=== PATIENT | female | born 1980 | race Caucasian/White ===

== ENCOUNTER 2024-06-13 13:47 | Outpatient (CLI) | payer SELFPAY ==
--- NOTE | ~2024-06-13 | US_ITS ---
EXAMINATION: US OB <= 14 weeks fetus DATE: 06/13/2024 14:21 INDICATION: Uncertain dating of during first trimester TECHNIQUE: Real-time pelvic ultrasound utilizing both a transvaginal and transabdominal probe was pe rformed. The interpreting radiologist was not present for the study. COMPARISON: None. FINDINGS: The uterus measures 12.3 x 2.7 x 10.8 cm. The uterine gestational sac with single living fetus with f etal heart rate of 153 beats per minute (bpm). The placenta appears to be developing posteriorly The amniotic fluid volume is subjectively normal. The following biometric data were obtained: BPD: 2.7 cm -> 14 weeks 5 days Head circumference: 9.9 cm -> 14 weeks 4 days Abdominal circumference: 8.1 cm -> 14 weeks 3 days Femur length: 1.4 cm -> 14 weeks 0 days These measurements are concordant. Head circumference to abdominal circumference ratio: 1.22 (normal range 1.08-1.37). Estimated weight: 94 g (+/-) 14 g IMPRESSION: 1. Single living fetus with heart rate of 153 bpm. 2. Gestational age by ultrasound of 14 weeks 3 day(s) +/-7 days with ultrasound estimated date of de livery (DOMENICA) of 12/09/2024. Please correlate with clinical information or earlier ultrasounds for most accurate DOMENICA. Reviewed, dictated and finalized at location A. IMPRESSION: 1. Single living fetus with heart rate of 153 bpm. 2. Gestational age by ultrasound of 14 weeks 3 day(s) +/-7 days with ultrasoun d estimated date of delivery (DOMENICA) of 12/09/2024. Please correlate with clinical information or earlier ultrasounds for most accurate DOMENICA.
== END 2024-06-13 13:48 ==
PROVIDERS: PCP Nurse Practitioner Women's Health; Visit Provider Nurse Practitioner Women's Health
DX: Z36.87 Encounter for antenatal screening for uncertain dates (principal)
CPT/HCPCS: 76801

== ENCOUNTER 2024-11-13 16:17 | Outpatient (RCR) | payer OTHER, SELFPAY ==
[2024-11-13 17:11] VITALS: BP 110/71; PULSE 98
== END 2025-02-11 23:59 | disposition home or self-care (01) ==
LOC: ANHOBOP 16:17
PROVIDERS: Visit Provider Obstetrics & Gynecology Gynecology
DX: O09.513 Supervision of elderly primigravida, third trimester (principal); Z3A.36 36 weeks gestation of pregnancy
CPT/HCPCS: 59025

== ENCOUNTER 2024-11-14 19:49 | Observation (INO) | payer OTHER, SELFPAY ==
--- OUTSIDE RECORDS SUMMARY | 2024-11-14 20:40 | XMS_ITS | Referral Summary ---
Author Organization [facility] Address [address] [place] [address] Care Team Providers Care Lead Radiologic Technologist Name Role Phone Unavailable Primary Care Provider Unavailabl e Source Comments [facility],non-owned Affiliates and Associated Physician Practices is amultiple site organization consisting of ambulatory clinics and hospital sitesin [place], [place], [place] and [place]. This disclosure is being madepursuant to the Care Everywhere program and may not contain all information available regarding this patient. Last updated 18.[facility]co Allergies Active Allergy Reactions Criticality Noted Date Comments Prochlorperazine Unknown Low 07/04/2020 Medications * Be aware that medications may not be up to date on this document. Alwaysverify current medications with the patient. 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 History of meningitis 08/01/2023 Mass of upper outer quadrant of right breast Mass of upper outer quadrant of left breast 03/18 Social History Tobacco Use Types Packs/Day Years Used Date Smoking Tobacco: Never Smokeless Tobacco: Never Alcohol Use Standard Drinks/Week Comments No 0 (1 standard drink = 0.6 oz pur e alcohol) Sex and Gender Information Value Date Recorded Sex Assigned at Not on file Gender Identity Not on file Sexual Orientation Not on file Last Filed Vital Signs Vital Sign Reading Time Taken Comments Blood Pressure 121/86 08/01/2023 8:17 AM CDT Pulse 93 08/01/2023 8:17 AM CDT Temperature 36.9 ??C (98.4 ??F) 09/29/2019 11:[address] Respiratory Rate 16 08/01/2023 8:17 AM CDT Oxygen Saturation 96% 09/30/2019 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 Concentration - - Weight 49.9 kg (110 lb) 04/07/2020 11:24 AM CDT Height 162.6 cm (5' 4 ) 08/01/2023 8:17 AM CDT Body Mass Index 18.88 04/07/2020 11:24 AM CDT Plan of Treatment Not on file Procedures Procedure Name Priority Date/Time Associated Diagnosis Comments MAMMO BILAT DIAGNOSTIC Routine 04/09/2020 10:40 AM CDT Mass of upper outer quadrant of left breast Mass of upper outer quadrant of right breast from Last 3 Months or Most Recently Relevant to Health Maintenance Results * (ABNORMAL) MAMMO BILAT DIAGNOSTIC (04/09/2020 10:40 AM CDT) Anatomical Region Laterality Modality Breast Bilateral Mammography 04/09/2020 2:35 PM CDT Narrative 04/09/2020 2:58 PM CDT DIGITAL MAMMOGRAM DIAGNOSTIC BILATERAL WITH CAD CORRELATION 3-D DIGITAL TOMOSYNTHESIS DATE: 04/09/2020 10:03 AM PREVIOUS EXAM DATE: 02/02/2019 HISTORY: High risk for breast cancer. Follow-up right breast mass at 7:00. TECHNIQUE: Bilateral breast CC and MLO views. These images were interpreted with the aid of CAD. 3-D digital Tomosynthesis was performed. TECHNOLOGIST: Jazzmine Brower RT (R)(M) TISSUE DENSITY: Heterogeneously dense which may obscure small masses. FINDINGS: Dense nodular fibroglandular parenchyma is demonstrated bilaterally. The overall appearance is similar to 02/02/2019. Ultrasound was performed bilaterally. See separate report. Ultrasound shows a 0.473 x 0.301 x 0.683 cm ovoid hypoechoic mass in the left breast which appears to be within a duct in the 10:00 position, 1 cm from the nipple. Left axillary lymph node measuring up to 1.27 cm with irregular cortical thickening is demonstrated on ultrasound. Ultrasound shows the hypoechoic mass in the 7:00 position in the right breast to be unchanged. ASSESSMENT: BI-RADS CATEGORY 4: SUSPICIOUS ABNORMALITY, BIOPSY SHOULD BE CONSIDERED RECOMMENDATIONS: Ultrasound-guided left breast biopsy of 10:00 lesion, as well as consider biopsy left axillary lymph node. The above findings should be correlated with physical examination. ??A relatively nonspecific study should not preclude additional evaluation if suspicious findings are present clinically. An [employer] certified facility. [facility] utilize [employer] as a reminder system to notify patients of their next recommended mammograms. Edited by Steff Gonzalez on 04/09/2020 2:52 PM *Reading Radiologist: Zhou Nicholas on 04/09/2020 at 2:58 PM Kandi Sparrowting DO MAMMO ORDERABLES from Last 3 Months or Most Recently Relevant to Health Maintenance Advance Directives * Full Code (Latest Code Status on File) Date Activated Date Inactivated Comments 06/24/2015 10:34 PM 06/25/2015 12:17 AM
--- OUTSIDE RECORDS SUMMARY | 2024-11-14 20:40 | XMS_ITS | Continuity of Care Document ---
Author Organization [facility] Address [address] [place] [address] Phone Care Team Providers Care Physician Office Rep Name Role Phone Unavailable Unavailable Unavailable Advance Directives Directive Yes / No Effective Date File Name No Information Encounters Encounter Description Practice Location Reason(s) For Visit Diagnoses Date Provider Providers Copied on Encounter [facility], [address], [place], [place], [id number], tel:[phone] [facility] No Information [id number] No Information Referring Provider: RAYSA DOWLING, [address], [place], [address]. tel:[phone] Family History Family Member Type Diagnosis Age At Onset No Information Payers Payer name Insurance type Covered constitution party ID Authoriza tiusha(s) [facility] [id number] Social History Type Description Quantity Date Captured Comments Sex Female Smoking Status No Information Chief Complaint And Reason For Visit No Information History Of Present Illness Encounter Date Complaint History Of Prese nt Illness No Information Instructions Date Instruction Additional Infor mation No Information Assessments Type Assessment Date No Information
--- OUTSIDE RECORDS SUMMARY | 2024-11-14 20:40 | XMS_ITS | Patient Health Summary ---
Author Organization [facility] Address [address] [place] [address] Care Team Providers Care Gas Usage Meter Clerk Name Role Phone Unavailable Primary Care Provider Unavailabl e Note from [facility],non-owned Affiliates and Associated Physician Practices is amultiple site organization consisting of ambulatory clinics and hospital sitesin [place], [place], [place] and [place]. This disclosure is being madepursuant to the Care Everywhere program and may not contain all information available regarding this patient. Last updated 18.[facility] Allergies * Prochlorperazine(Unknown) -Low Criticality Medications * Be aware that medications may not be up to date on this document. Alwaysverify current medications with the patient. * clonazePAM (KLONOPIN) 0.5 MG tablet Take 0.5 mg by mouth at bedtime * hydrOXYzine hcl (ATARAX) 25 MG tablet Take 1 (one) tablet by mouth 4 times daily as needed for Itching * Vyvanse 70 MG capsule(Started 05/05/2023) Take 1 (one) capsule by mouth every morning Active Problems Problem Noted Date Diagnosed Date [...] CDT Oxygen Saturation 96% 09/30/2019 1:20 AM BIOLOGICS SPECIALIST Inhaled Oxygen Concentration - - Weight 49.9 kg (110 lb) 04/07/2020 11:24 AM CDT Height 162.6 cm (5' 4 ) 08/01/2023 8:17 AM CDT Body Mass Index 18.88 04/07/2020 11:24 AM CDT Procedures * LUPUS ANTICOAGULANT PANEL(Performed 08/01/2023) Performed for SAB (spontaneous ) ([facility]) * BETA-2 GLYCOPROTEIN 1 ANTIBODY IGG/IGM PANEL(Performed 08/01/2023) Performed for SAB (spontaneous ) ([facility]) * CARDIOLIPIN ANTIBODY IGG/IGM PANEL(Performed 08/01/2023) Performed for SAB (spontaneous ) ([facility]) * COMPREHENSIVE METABOLIC PANEL(Performed 08/01/2023) Performed for SAB (spontaneous ) ([facility]) * CBC W/O DIFFERENTIAL(Performed 08/01/2023) Performed for SAB (spontaneous ) ([facility]) * SONOGRAM - COMPLETE(Performed 08/01/2023) Performed for Establish gestational age, ultrasound ([facility]) * MAMMO LEFT DIAGNOSTIC(Performed 04/15/2020) Performed for Abnormal mammogram * US BREAST LEFT BIOPSY(Performed 04/15/2020) Performed for Abnormal mammogram * PATHOLOGY TISSUE EXAM (STL)(Performed 04/15/2020) Performed for Abnormal mammogram * US BREAST BILATERAL LTD(Performed 04/09/2020) Performed for Mass of upper outer quadrant of left breast, Mass of upper outer quadrant of right breast * MAMMO BILAT DIAGNOSTIC(Performed 04/09/2020) Performed for Mass of upper outer quadrant of left breast, Mass of upper outer quadrant of right breast * HCG BETA BLOOD QUANTITATIVE(Performed 09/29/2019) * MAGNESIUM BLOOD(Performed 09/29/2019) * PT PTT PANEL(Performed 09/29/2019) * LACTIC ACID BLOOD(Performed 09/29/2019) * LIPASE BLOOD(Performed 09/29/2019) * COMPREHENSIVE METABOLIC PANEL(Performed 09/29/2019) * CBC W AUTO DIFFERENTIAL(Performed 09/29/2019) * US BREAST BILATERAL LTD(Performed 02/02/2019) Performed for Lump of left breast, Osteopenia after menopause * MAMMO BILAT DIAGNOSTIC(Performed 02/02/2019) Performed for Lump of left breast * XR SACRUM AND COCCYX(Performed 08/13/2017) * HCG URINE QUALITATIVE - POINT OF CARE(Performed 08/13/2017) * US OB OVER 14 WEEKS(Performed 12/12/2015) Performed for Pelvic pain in female * SLIDE SCAN HEMATOLOGY(Performed 12/12/2015) * CBC W AUTO DIFFERENTIAL(Performed 12/12/2015) * HCG BETA BLOOD QUANTITATIVE(Performed 12/12/2015) * URINALYSIS REFLEX MICROSCOPIC REFLEX CULTURE(Performed 12/12/2015) * COMPREHENSIVE METABOLIC PANEL(Performed 12/12/2015) * CT ABDOMEN PELVIS WO CONTRAST(Performed 08/10/2015) Performed for Abdominal pain, generalized * URINALYSIS REFLEX MICROSCOPIC REFLEX CULTURE(Performed 08/10/2015) * HCG URINE QUALITATIVE - POINT OF CARE(Performed 08/10/2015) * COMPREHENSIVE METABOLIC PANEL(Performed 08/10/2015) * CBC W AUTO DIFFERENTIAL(Performed 08/10/2015) * BASIC METABOLIC PANEL (CALCIUM TOTAL)(Performed 08/04/2015) * CBC W AUTO DIFFERENTIAL(Performed 08/04/2015) * HCG BETA BLOOD QUANTITATIVE(Performed 08/04/2015) * HCG URINE QUALITATIVE(Performed 08/04/2015) * URINALYSIS REFLEX TO MICROSCOPIC NO CULTURE(Performed 08/04/2015) * MRI BRAIN WO CONTRAST(Performed 06/25/2015) Performed for Neck pain * MRI CERVICAL SPINE WO CONTRAST(Performed 06/25/2015) Performed for Neck pain * HCG URINE QUALITATIVE - POINT OF CARE(Performed 06/24/2015) * HCG URINE QUALITATIVE - POINT OF CARE(Performed 06/24/2015) * COMPREHENSIVE METABOLIC PANEL(Performed 06/24/2015) * CBC W AUTO DIFFERENTIAL(Performed 06/24/2015) * EKG 12-LEAD(Performed 06/24/2015) Performed for Neck pain Results * LUPUS ANTICOAGULANT PANEL (08/01/2023 8:56 AM CDT) APTT 32.8 23.0 - 38.4 Seconds 08/02/2023 12:02 PM CDT [facility] PT 12.5 12.1 - 14.8 Seconds 08/02/2023 12:02 PM [facility] INR 1.0 See Comment 08/02/2023 12:02 PM [facility] Buffer 47.3 Seconds 023 12:02 PM [facility] Phospholipid 44.6 Seconds 08/02/2023 12:02 PM [facility] Delta 2.7 <8.0 Seconds 08/02/2023 12:02 PM [facility] Interpretation [facility] Negative 08/02/2023 12:02 PM [facility] Comment:Up to 15-20% of mo ents with lupus anticoagulant associated with antiphospholipid antibody syndrome (APAS) will have negative [place]-[facility] results. For these patients we recommend additional testing to include the Dilute Ward Viper Venom Time (DRVVT) test. Immunoassay measurements of anti-cardiolipin and anti-beta-2 glycoprotein 1 are recommended if the DRVVT, and STACLOT-LA tests are negative and there is clinical suspicion of APAS. Blood BLOOD SPECIMEN / Unknown Venipuncture / Unknown 08/01/2023 8:56 AM CDT 08/01/2023 9:15 AM CDT Kimmy Heart MD LAB - HEMATOLOGY ORD ERABLES [facility] Organization Address City/State/ZIP Co de Phone Number [facility] [address] [place] [id number], [facility] [phone] * CARDIOLIPIN ANTIBODY IGG/IGM PANEL (08/01/2023 8:56 AM CDT) Cardiolipin Antibody IgG <9 0 - 14 GPL U/mL 08/02/2023 4:11 PM CDT [facility] ([facility]) Comment: ?Negative: ?<15 ?Indeterminate: ? 15 - 20 ?Low-Med Positive: >20 - 80 ?High Positive: ? >80 Cardiolipin Antibody IgM 10 0 - 12 MPL U/mL 08/02/2023 4:11 PM CDT [facility] ([facility]) Comment: ?Negative: ?<13 ?Indeterminate: ? 13 - 20 ?Low-Med Positive: >20 - 80 ?High Positive: ? >80 Blood BLOOD SPECIMEN / Unknown Venipuncture / Unknown 08/01/2023 8:56 AM CDT 08/01/2023 9:15 AM CDT N[facility]ative [facility] - 08/02/2023 4:11 PM CDT Performed at: [facility]01 [facility] [address] [place], [place] ??[id number] Machine Cell Tuber: Young Reed PhD, Phone: ??[phone] Kimmy Heart MD LAB - SEROLOGY ORDER [facility] ([facility]) [address] [place] [address] * BETA-2 GLYCOPROTEIN 1 ANTIBODY IGG/IGM PANEL (08/01/2023 8:56 AM CDT) Beta-2 Glycoprotein I Antibody IgG <9 0 - 20 GPI IgG units 08/03/2023 3:35 AM CDT [facility] ([facility]) Comment: The reference interval reflects a 3SD or 99th percentile interval, which is thought to represent a potentially clinically significant result in accordance with the International Consensus Statement on the classification criteria for definitive antiphospholipid syndrome (APS). J Thromb Haem 2006;4:295-306. Beta-2 Glycoprotein I Antibody IgM 9 0 - 32 GPI IgM units 08/03/2023 3:35 AM CDT [facility] ([facility]) Comment: The reference interval reflects a 3SD or 99th percentile interval, which is thought to represent a potentially clinically significant result in accordance with the International Consensus Statement on the classification criteria for definitive antiphospholipid syndrome (APS). J Thromb Haem 2006;4:295-306. Blood BLOOD SPECIMEN / Unknown Venipuncture / Unknown 08/01/2023 8:56 AM CDT 08/01/2023 9:15 AM CDT [facility] ([facility]) - 08/03/2023 3:35 AM CDT Performed at: ??01 - [facility] ??[id number] Machine Cell Tuber: Dylon Yap MD, Phone: ??[phone] Kimmy Heart MD LAB - CHEMISTRY [facility] Organization Address City/State/ZIP Co de Phone Number [facility] ([facility]) [address] [place] [address] * (ABNORMAL) CBC W/O DIFFERENTIAL (08/01/2023 8:56 AM CDT) [facility] WBC 9.7 4.4 - 10.7 x10E9/L 08/01/2023 9:24 AM CDT [facility] RBC 3.91 3.80 - 5.20 x10E12/L 08/01/2023 9:24 AM CDT [facility] Hemoglobin 12.1 12.0 - 15.6 gm/dL 08/01/2023 9:24 AM CDT [facility] Hematocrit 36.0 35.9 - 45.5 % 08/01/2023 9:24 AM CDT [facility] MCV 92.1 80.7 - 98.3 fl 08/01/2023 9:24 AM CDT [facility] MCH 30.9 26.7 - 34.0 pg 08/01/2023 9:24 AM CDT [facility] MCHC 33.6 30.8 - 35.9 gm/dL 08/01/2023 9:24 AM CDT [facility] Platelet Count 380 153 - 416 x10E9/L 08/01/2023 9:24 AM CDT [facility] RDW-CV 13.4 12.1 - 14.9 % 08/01/2023 9:24 AM CDT [facility] MPV 9.0(L) 9.4 - 12.9 fl 08/01/2023 9:24 AM CDT [facility] Blood BLOOD SPECIMEN / Unknown Venipuncture / Unknown 08/01/2023 8:56 AM CDT 08/01/2023 9:15 AM CDT Kimmy Heart MD LAB - HEMATOLOGY ORD ERABLES [facility] [address] [place] [address] * COMPREHENSIVE METABOLIC PANEL (08/01/2023 8:56 AM CDT) Only the most recent of5 resultswithin the time period is included. Glucose 92 70 - 105 mg/dL 08/01/2023 9:47 AM CDT [facility] Sodium 139 136 - 145 mmol/L 08/01/2023 9:47 AM CDT [facility] Potassium 3.8 3.5 - 5.1 mmol/L 08/01/2023 9:47 AM CDT [facility] Chloride 104 98 - 107 mmol/L 08/01/2023 9:47 AM CDT [facility] CO2 28 22 - 29 mmol/L 08/01/2023 9:47 AM CDT [facility] Calcium 9.5 8.4 - 10.4 mg/dL 08/01/2023 9:47 AM CDT [facility] Anion Gap 7 6 - 16 mmol/L 08/01/2023 9:47 AM CDT [facility] BUN 7 5.3 - 18.7 mg/dL 08/01/2023 9:47 AM CDT [facility] Creatinine 0.75 0.57 - 1.11 mg/dL 08/01/2023 9:47 AM CDT [facility] Alkaline Phosphatase 49 40 - 150 U/L 08/01/2023 9:47 AM CDT [facility] ALT 9 0 - 55 U/L 08/01/2023 9:47 AM CDT [facility] AST 20 5 - 34 U/L 08/01/2023 9:47 AM CDT [facility] Protein Total 7.3 6.4 - 8.3 gm/dL 08/01/2023 9:47 AM CDT [facility] Albumin 4.0 3.4 - 5.0 gm/dL 08/01/2023 9:47 AM CDT [facility] Bilirubin Total 0.3 0.2 - 1.2 mg/dL 08/01/2023 9:47 AM CDT [facility] eGFR by CKD-EPI >90 >=90 mL/min/1.7 3 m2 08/01/2023 9:47 AM CDT [facility] Blood BLOOD SPECIMEN / Unknown Venipuncture / Unknown 08/01/2023 8:56 AM CDT 08/01/2023 9:15 AM CDT Kimmy Heart MD LAB - CHEMISTRY [place] Organization Address [facility]/State/[facility] Co de Phone Number [facility] [address] [place] [address] * SONOGRAM - COMPLETE (08/01/2023 7:52 AM CDT) Anatomical Region Laterality Modality Other 08/01/2023 7:52 AM CDT Narrative 08/01/2023 9:33 AM CDT ? [facility] ?[facility] ?PHONE: ??FAX: Pat. Name: ?JEANINE MONTOYA Pat. No: ?[id number] Study Date: ?? 08/01/2023 ??7:52am , Age: ? 1980, 43 Pregnancies: ?? 14, Para 2-1-10-3 Height: ? 64 in Weight: ? 110 lb LMP: ?06/06/2023 GA by LMP: ?08w0d GA by US: ? 06w4d ?? DOMENICA: 03/22/2024 GA Selected: ??06w4d (Sonographic) DOMENICA: ?03/22/2024 Referring MD: Narciso, , [facility] Clamp Forklift Operator: ??Poonam Mendez, RDMS, RDCS CPT4: ? 47497,49530 BMI: ?18.88 Hist/Ind: ? Dating ?Advanced maternal age, multigravida ?Chronh's ?Multiple SAB (possibly x 10) ?MJ use MEASUREMENTS & AGE ? GROWTH EVALUATION Measurement ??GA ? Range ? Srce %for GA Ratios ----- ---- ------- CRL ??0.7 cm 06w4d ([id number]) Hadl CRL 50% GA for sonogram 06w4d ([id number]) based on (CRL) Avg ? PROCEDURE, TECHNIQUE Technique: transabdominal, transvaginal EVAL, PLACENTA Location: intrauterine Gestational Sac: normal Yolk Sac: visualized Embryo: visualized Cardiac Activity: demise MATERNAL ANATOMY Ovaries LxHxW (cm) Right 2.4 x 1.0 x 1.3 Vol: 1.6cc Desc: Appears normal Left 2.7 x 2.0 x 2.6 Vol: 7.2cc Desc: Contains a cyst Ovarian Cysts LxHxW (cm) L1: 1.1 x 1.1 x 1.7 Desc: Septated cyst CLINICAL SUMMARY A single intrauterine was seen without cardiac activity. ?? Free fluid was not seen in the pelvis. ??The right ovary appears normal. ??The left ovary was seen with suspected septated cyst. IMPRESSION: Single, IUP seen with CRL corresponding to gestational age at 6w4d with no cardiac activity noted at this time. Findings are indicative of early failed . Patient was sent to [facility] clinic for further management. RECOMMEND: Findings were communicated to provider care team at HROB clinic at the time of the scan. Follow up as clinically indicated Vincenzo Blood MD <Electronic Signature> ??08/01/2023 09:32am Eulalio Lau MD [facility] ORDERABLES * MAMMO LEFT DIAGNOSTIC (04/15/2020 2:21 PM CDT) Anatomical Region Laterality Modality Breast Left Mammography 04/15/2020 2:19 PM CDT Impressions 04/16/2020 4:12 PM CDT Successful ultrasound-guided left breast biopsy and left axillary lymph node biopsy *Reading Radiologist: Jeffrey Ramirez on 04/16/2020 at 4:12 PM Narrative 04/16/2020 4:12 PM CDT EXAM: US BREAST LEFT BIOPSY*[id number] INDICATION: Other abnormal and inconclusive findings on diagnostic imaging of breast COMPARISON: none available FINDINGS: After informed consent was obtained, the patient's left breast was prepped and draped in usual sterile fashion. 1% lidocaine was used for local anesthesia. Under ultrasonographic guidance, 2 separate 14-gauge core biopsies were obtained of the small lesion in the 10:00 position of the left breast, 1 cm from the nipple. A biopsy marker clip was placed adjacent to this lesion. Attention was then turned to the mildly prominent lymph node in the left axilla (13 mm). 2 14-gauge core biopsies were obtained and a clip was placed adjacent to this lymph node. The patient tolerated the procedure well and there were no immediate complications. Postprocedure mammography shows both the axillary clip in the left breast clip to be appropriately positioned. Jeffrey Ramirez MD MAMMO ORDERABLES * US BREAST LEFT BIOPSY (04/15/2020 2:06 PM CDT) Anatomical Region Laterality Modality Breast Left Ultrasound Biopsy specimen, unspecified 04/15/2020 2:19 PM CDT Impressions 04/15/2020 2:22 PM CDT Successful ultrasound-guided left breast biopsy and left axillary lymph node biopsy *Reading Radiologist: Jeffrey Ramirez on 04/16/2020 at 4:12 PM Narrative 04/15/2020 2:22 PM CDT EXAM: US BREAST LEFT BIOPSY*[id number] INDICATION: Other abnormal and inconclusive findings on diagnostic imaging of breast COMPARISON: none available FINDINGS: After informed consent was obtained, the patient's left breast was prepped and draped in usual sterile fashion. 1% lidocaine was used for local anesthesia. Under ultrasonographic guidance, 2 separate 14-gauge core biopsies were obtained of the small lesion in the 10:00 position of the left breast, 1 cm from the nipple. A biopsy marker clip was placed adjacent to this lesion. Attention was then turned to the mildly prominent lymph node in the left axilla (13 mm). 2 14-gauge core biopsies were obtained and a clip was placed adjacent to this lymph node. The patient tolerated the procedure well and there were no immediate complications. Postprocedure mammography shows both the axillary clip in the left breast clip to be appropriately positioned. Kandi Zavala DO US ORDERABLES * GROSS + MICRO EXAM (STL) (04/15/2020 1:56 PM CDT) Case Report Surgical Pathology Report ? Case: [id number] ? Authorizing Provider: ??Lucas, Kandi Powell, DO ?Collected: ? 04/15/2020 01:56 PM ? Ordering Location: ? [facility] ? Received: ?04/16/2020 08:50 AM ? Pathologist: ? Cynthia Fortune MD ? Specimens: ?? A) - Breast Core Biopsy, Left Breast 10:00, 1cmfn ? B) - Breast Core Biopsy ? 04/21/2020 11:33 AM CDT [facility] Final Diagnosis Breast, left, 10 o'clock, 1 cm from nipple, ultrasound-guided needle biopsy: - Focal proliferative fibrocystic changes - No evidence of malignancy - See description Lymph node, left axilla, ultrasound-guided needle biopsy: - Benign lymph node with tattoo pigment - No evidence of malignancy BECK/eric 04/21/2020 11:33 AM [facility] Gross Description Received in two formalin-filled containers, each labeled with the patient? s name, Jeanine Montoya. Specimen A is further labeled, left breast 10 o'clock biopsy . It consists of two partially yellow, partially white soft tissue fragments, each measuring 0.8 and 2.0 cm in length and each with a diameter of 0.1 to 0.2 cm. The specimen is entirely submitted in cassette A1. The specimen is collected at 1:57 pm, and placed in formalin at 1:57 pm. Cold ischemic time is 1 second. Specimen B is further labeled, left axilla, breast core biopsy . It consists of three core biopsy specimens with the smallest one being brown, measuring 0.4 cm in length and 0.2 cm in diameter. The two longer fragments are partially yellow and partially white, ranging in length from 1.0 to 1.2 cm, and both with a diameter of 0.1 to 0.2 cm. The specimen is entirely submitted in cassette B1. Collected at 1:58 pm, and placed in formalin at 1:58 pm. Cold ischemic time is 1 second. AGUSTÍN/lexx 04/21/2020 11:33 AM [facility] Microscopic Description Histologic sections show fragments of fibrofatty breast tissue. Focally, there is a portion of a terminal duct lobular unit with focal intraductal hyperplasia. There are various small to medium caliber vessels within the fibrous tissue. Multiple level sections are examined. There is no evidence of malignancy in the biopsy material. Please correlate with clinical and radiologic findings. Histologic sections of the left lymph node show cores of lymph node with tattoo pigment. There is no evidence of malignancy. BECK/eric 04/21/2020 11:33 AM [facility] Disclaimer All histochemical and/or immunohistochemical results are interpreted with controls that demonstrate appropriate staining reactions before reporting results. Note on use of immunocytochemistry reagents: This test was developed and its performance characteristic determined by [facility], Department of Laboratory Medicine. It has not been cleared or approved by the U.S. Food and Drug Administration (FDA). The FDA has determined that such clearance or approval is not necessary. The test is used for clinical purpose. It should not be regarded as investigational or for research. This laboratory is certified to perform high complexity testing. The performance characteristics of the IHC/JALYN assays have been validated on formalin-fixed paraffin embedded tissues only. The assays have not been validated on decalcified tissues. Results should be interpreted with caution. 04/21/2020 11:33 AM CDT [facility] Embedded Images 04/21/2020 11:33 AM CDT [facility] Pathology/Cytology SPECIMEN FROM BREAST OBTAINED BY CORE NEEDLE BIOPSY / Unknown 04/15/2020 1:56 PM CDT 04/16/2020 8:50 AM CDT Miscellaneous samples (specimen) SPECIMEN FROM BREAST OBTAINED BY CORE NEEDLE BIOPSY / Unknown 04/15/2020 1:57 PM CDT 04/16/2020 8:50 AM CDT Kandi Zavala DO LAB - PATHOLOGY/CYTO LOGY ORDERABLES [facility] [address] [place] [address] * US BREAST BILATERAL LTD( most commonly ordered,not the whole breast) (04/09/2020 11:48 AM CDT) Only the most recent of2 resultswithin the time period is included. Anatomical Region Laterality Modality Breast Bilateral Ultrasound 04/09/2020 11:4 7 AM CDT Narrative 04/09/2020 12:59 PM CDT ULTRASOUND BILATERAL BREASTS LIMITED INDICATION: High risk for breast cancer. Follow-up right breast mass at 7:00. COMPARISON: February 02, 2019 FINDINGS: Ultrasound of the right breast redemonstrates a 0.817 x 0.354 x 0.732 cm fairly well marginated ovoid parallel-oriented hypoechoic mass in the 7:00 position, 2 cm from the nipple. This is fairly similar to prior where it measured up to 0.813 cm. No other cystic or solid mass in the right breast is demonstrated. Within the left breast at 10:00 2 cm from the nipple, there is a 0.336 x 0.194 x 0.327 cm simple cyst. In the 10:00 position 1 cm from the nipple, there is a 0.473 x 0.301 x 0.683 cm ovoid hypoechoic mass which appears to be within a duct. This could represent a papilloma. Ultrasound-guided left breast biopsy of this lesion would be recommended. In the left axilla is a 1.27 x 0.688 cm lymph node with fatty hilum. This has a thickened cortex along its anterior left lateral wall measuring up to 0.44 cm. The patient had a diagnostic mammogram from same date. See separate report. ASSESSMENT: BI-RADS CATEGORY 4: SUSPICIOUS ABNORMALITY, BIOPSY SHOULD BE CONSIDERED RECOMMENDATION: Ultrasound-guided left breast biopsy at 10:00 lesion, as well as consider biopsy of left axillary lymph node. Edited by Steff Gonzalez on 04/09/2020 12:21 PM *Reading Radiologist: Zhou Nicholas on 04/09/2020 at 12:59 PM Kandi Zavala DO US ORDERABLES * (ABNORMAL) MAMMO BILAT DIAGNOSTIC (04/09/2020 10:40 AM CDT) Only the most recent of2 resultswithin the time period is included. Anatomical Region Laterality Modality Breast Bilateral Mammography [...] CAD. 3-D digital Tomosynthesis was performed. TECHNOLOGIST: Jazzmien Brower, RT (R)(M) TISSUE DENSITY: Heterogeneously dense which [...] if suspicious findings are present clinically. An [employer] certified facility. [facility] utilize [employer] as a reminder system to notify patients of their next recommended mammograms. Edited by Steff Gonzalez on 04/09/2020 2:52 PM *Reading Radiologist: Zhou Nicholas on 04/09/2020 at 2:58 PM Kandi Zavala DO MAMMO ORDERABLES * PT PTT PANEL (09/29/2019 11:54 PM BIOLOGICS SPECIALIST) PT 10.3 9.5 - 11.6 sec 09/30/2019 12:50 AM BIOLOGICS SPECIALIST [facility] INR 1.0 0.9 - 1.1 09/30/2019 12:50 AM [facility] PTT 25.4 21.0 - 32.0 sec 09/30/2019 12:50 AM [facility] Blood BLOOD SPECIMEN / Unknown Venipuncture / Unknown 09/29/2019 11:54 PM BIOLOGICS SPECIALIST 09/30/2019 12:01 AM BIOLOGICS SPECIALIST Narrative [facility] - 09/30/2019 12:50 AM BIOLOGICS SPECIALIST Conventional Warfarin Anticoagulant Therapy: INR Reference Range: ??2.0-3.0 Intensive Warfarin Anticoagulant Therapy: INR Reference Range: ? 2.5-3.5 Heparin Therapeutic Range for PTT: 50.5 - 74.3 seconds. Kasie Rodriguez MD LAB - COAGULATION OR DERABLES [facility] [address] [place] [address] * (ABNORMAL) CBC W AUTO DIFFERENTIAL (09/29/2019 11:54 PM BIOLOGICS SPECIALIST) Only the most recent of5 resultswithin the time period is included. WBC 7.5 4.4 - 10.7 x10E9/L 09/30/2019 12:04 AM [facility] WBC Corrected 09/30/2019 12:04 AM [facility] RBC 3.18(L) 3.80 - 5.20 x10E12/L 09/30/2019 12:04 AM [facility] Hemoglobin 9.9(L) 12.0 - 15.6 gm/dL 09/30/2019 12:04 AM [facility] Hematocrit 29.3(L) 35.9 - 45.5 % 09/30/2019 12:04 AM [facility] MCV 92.1 80.7 - 98.3 fl 09/30/2019 12:04 AM [facility] MCH 31.1 26.7 - 34.0 pg 09/30/2019 12:04 AM [facility] MCHC 33.8 30.8 - 35.9 gm/dL 09/30/2019 12:04 AM [facility] Platelet Count 233 153 - 416 x10E9/L 09/30/2019 12:04 AM [facility] RDW-CV 12.7 12.1 - 14.9 % 09/30/2019 12:04 AM [facility] MPV 8.7(L) 9.4 - 12.9 fl 09/30/2019 12:04 AM [facility] Neutrophils % 54.5 44.0 - 73.0 % 09/30/2019 12:04 AM [facility] Lymphocytes % 34.3 20.0 - 43.0 % 09/30/2019 12:04 AM [facility] Monocytes % 8.5 5.0 - 13.0 % 09/30/2019 12:04 AM [facility] Eosinophils % 2.1 0.0 - 6.0 % 09/30/2019 12:04 AM [facility] Basophils % 0.5 0.0 - 2.0 % 09/30/2019 12:04 AM [facility] Immature Granulocytes 0.1 0 - 1 % 09/30/2019 12:04 AM [facility] Neutrophil Absolute 4.08 2.01 - 7.14 x10E9/L 09/30/2019 12:04 AM [facility] Lymphocytes Absolute 2.57 1.07 - 3.94 x10E9/L 09/30/2019 12:04 AM [facility] Monocytes Absolute 0.64 0.26 - 1.07 x10E9/L 09/30/2019 12:04 AM [facility] Eosinophils Absolute 0.16 0 - 0.47 x10E9/L 09/30/2019 12:04 AM [facility] Basophils Absolute 0.04 0 - 0.08 x10E9/L 09/30/2019 12:04 AM [facility] Immature Granulocytes Absolute 0.01 0.00 - 0.06 x10E9/L 09/30/2019 12:04 AM [facility] nRBC Auto 0 /100 WBC 09/30/2019 12:04 AM [facility] Blood BLOOD SPECIMEN / Unknown Venipuncture / Unknown 09/29/2019 11:54 PM BIOLOGICS SPECIALIST 09/30/2019 12:01 AM [facility] Kasie Rodriguez MD LAB - HEMATOLOGY ORD ERABLES [facility] [address] [place] [id number] * HCG BETA BLOOD QUANTITATIVE (09/29/2019 11:54 PM [facility]) Only the most recent of3 resultswithin the time period is included. hCG Quantitative <1.20 mIU/mL 09/30/20 19 2:11 AM [facility] Blood BLOOD SPECIMEN / Unknown Venipuncture / Unknown 09/29/2019 11:54 PM BIOLOGICS SPECIALIST 09/30/2019 12:01 AM BIOLOGICS SPECIALIST Narrative [facility] - 09/30/2019 2:11 AM BIOLOGICS SPECIALIST ? hCG Reference Range, mIU/mL: ? Males ? 0-2.0 ? Non Females ? 0-6.0 ? Perimenopausal Females ages 41-55* ?0-7.7 ? Postmenopausal Females age >55* ? 0-14 ? Females, Weeks after Last Menstrual Period ?0.2-1 week ? 5-50 ?1 - 2 weeks ?50-500 ?2 - 3 weeks ?100-5000 ?3 - 4 weeks ?500-10,000 ?4 - 5 weeks ?1000-50,000 ?5 - 6 weeks ?10,000-100,000 ?6 - 8 weeks ?15,000-200,000 ?2 - 3 months ? 10,000-100,000 ?Trophoblastic Disease ?>100,000 *In higher than expected hCG in females > age 40, a serum FSH >20 IU/L makes unlikely. Kasie Rodriguez MD LAB - CHEMISTRY DANIELLE FRANKLIN [facility] [address] [place] [address] * MAGNESIUM BLOOD (09/29/2019 11:54 PM BIOLOGICS SPECIALIST) Magnesium 1.8 1.6 - 2.6 mg/dL 09/30/2019 12:21 AM BIOLOGICS SPECIALIST [facility] Blood BLOOD SPECIMEN / Unknown Venipuncture / Unknown 09/29/2019 11:54 PM BIOLOGICS SPECIALIST 09/30/2019 12:01 AM BIOLOG[facility] SPECIALIST Kasie Rodriguez MD LAB - CHEMISTRY DANIELLE FRANKLIN Performing Organization Address City/[facility]/ZIP Co de Phone Number [facility] [place] [phone] * LIPASE BLOOD (09/29/2019 11:54 PM BIOLOGICS SPECIALIST) Lipase 12 8 - 78 U/L 09/30/2019 12:21 AM BIOLOGICS SPECIALIST [facility] Blood BLOOD SPECIMEN / Unknown Venipuncture / Unknown 09/29/2019 11:54 PM BIOLOGICS SPECIALIST 09/30/2019 12:01 AM BIOLOG[facility] SPECIALIST Kasie Rodriguez MD LAB - CHEMISTRY DANIELLE FRANKLIN Performing Organization Address [facility] Co de Phone Number [facility] [address] [place] [address] * LACTIC ACID BLOOD (09/29/2019 11:54 PM BIOLOGICS SPECIALIST) Lactic Acid 0.52 0.5 - 2.2 mmol/L 09/30/2019 12:16 AM BIOLOGICS SPECIALIST [facility] Blood BLOOD SPECIMEN / Unknown Venipuncture / Unknown 09/29/2019 11:54 PM BIOLOGICS SPECIALIST 09/30/2019 12:01 AM BIOLOGICS SPECIALIST Kasie Rodriguez MD LAB - CHEMISTRY DANIELLE FRANKLIN Performing Organization Address [facility] Co de Phone Number [facility] [place] [phone] * XR SACRUM AND COCCYX (08/13/2017 10:05 AM CDT) Anatomical Region Laterality Modality Spine Radiographic Giovana ging 08/13/2017 10:1 8 AM CDT Narrative 08/13/2017 10:21 AM CDT EXAM: XR SACRUM AND COCCYX*[id number] INDICATION: Unspecified injury of lower back, initial encounter, sacroiliac region pain after intercourse COMPARISON: none available FINDINGS: There is a subtle linear lucency involving the left side of the lower sacrum near its junction with the coccyx which may represent a small nondisplaced fracture. Nonemergent pelvic MRI would be beneficial for further delineation if clinically indicated. There is no significant displaced fracture or dislocation. There is no osseous destruction. Bilateral sacroiliac joints are intact. Procedure Note Jeffrey Ramirez MD - 08/13/2017 EXAM: XR SACRUM AND COCCYX*[id number] INDICATION: Unspecified injury of lower back, initial encounter, sacroiliac region pain after intercourse COMPARISON: none available FINDINGS: There is a subtle linear lucency involving the left side of the lower sacrum near its junction with the coccyx which may represent a small nondisplaced fracture. Nonemergent pelvic MRI would be beneficial for further delineation if clinically indicated. There is no significant displaced fracture or dislocation. There is no osseous destruction. Bilateral sacroiliac joints are intact. Christel Voss APRN-TIME LOCK EXPERT DIAGNOSTIC IMAGI NG ORDERABLES * HCG URINE QUALITATIVE - POINT OF CARE (IP) (08/13/2017 8:25 AM CDT) Only the most recent of4 resultswithin the time period is included. HCG Qual Urine Negative Negative [facility] POCT TESTING QC Verified Yes Yes [facility] POC T TESTING Urine URINE / Unknown 08/13/2017 8 :25 AM CDT Christel Voss APRN-TIME LOCK EXPERT LAB - POINT OF C ARE ORDERABLES [facility] POCT TESTING [facility] [place]. [address] * US OB 14+ WKS SINGLE GEST (12/12/2015 10:22 AM BIOLOGICS SPECIALIST) Anatomical Region Laterality Modality Abdomen Ultrasound 12/12/2015 10:2 2 AM BIOLOGICS SPECIALIST Impressions 12/12/2015 10:24 AM BIOLOGICS SPECIALIST Intrauterine at 15 weeks 6 day gestation with heart rate 153 beats per minute. Followup should be performed as needed Narrative 12/12/2015 10:24 AM BIOLOGICS SPECIALIST Ultrasound OB greater than 14 weeks transabdominal Ultrasound OB greater than 14 weeks transvaginal Indication: , diarrhea, fever and pelvic pain Findings Transabdominal and transvaginal ultrasound shows intrauterine equivalent to 15 weeks 6 days gestation. For measurements see hard copy report. heart rate of 153 beats per minute is demonstrated. Examination was not performed for malformation evaluation. Neither ovary could be visualized. There is no free fluid. Procedure Note Zhou Nicholas MD - 12/12/2015 Ultrasound OB greater than 14 weeks transabdominal Ultrasound OB greater than 14 weeks transvaginal Indication: , diarrhea, fever and pelvic pain Findings Transabdominal and transvaginal ultrasound shows intrauterine equivalent to 15 weeks 6 days gestation. For measurements see hard copy report. heart rate of 153 beats per minute is demonstrated. Examination was not performed for malformation evaluation. Neither ovary could be visualized. There is no free fluid. IMPRESSION Intrauterine at 15 weeks 6 day gestation with heart rate 153 beats per minute. Followup should be performed as needed Jorge Clifford MD US ORDERABLES * SLIDE SCAN HEMATOLOGY (12/12/2015 9:46 AM BIOLOGICS SPECIALIST) Pathologist [facility] Platelet Estimation Normal Normal, Adequate platelets 12/12/2015 10:24 AM BIOLOGICS SPECIALIST [facility] Comment:Platelet estimate = 180-240 Blood BLOOD SPECIMEN / Unknown 12/12/2015 9:46 AM BIOLOGICS SPECIALIST 12/12/2015 9:59 AM BIOLOGICS SPECIALIST Jorge Clifford MD LAB - HEMATOLOGY ORD ERABLES [facility] [address] [address] * (ABNORMAL) URINALYSIS ROUTINE W/REFLEX TO CULTURE (12/12/2015 9:20 AM BIOLOGICS SPECIALIST) Only the most recent of2 resultswithin the time period is included. Color UA Yellow Straw, Yellow, Dark Yellow 12/12/2015 9:35 AM BIOLOGICS SPECIALIST [facility] Clarity UA Clear 12/12/2015 9:35 AM [facility] Specific [place] UA 1.002(L) 1.005 - 1.030 12/12/2015 9:35 AM [facility] pH UA 7.0 5.0 - 8.0 pH 12/12/2015 9:35 AM [facility] Protein UA Negative Negative 12/12/2015 9:35 AM [facility] Blood UA Negative Negative 12/12/2015 9:35 AM [facility] Leukocyte UA Negative Negative 12/12/2015 9:35 AM [facility] Nitrite UA Negative Negative 12/12/2015 9:35 AM [facility] Glucose UA Negative Negative 12/12/2015 9:35 AM [facility] Ketone UA Negative Negative 12/12/2015 9:35 AM [facility] Bilirubin UA Negative Negative 12/12/2015 9:35 AM [facility] Urobilinogen UA 0.2 0.1 - 1.0 EU/dL 12/12/2015 9:35 AM [facility] Reflex Status Culture not indicated 12/12/2015 9:35 AM [facility] Urine URINE SPECIMEN OBTAINED BY CLEAN CATCH PROCEDURE / Unknown 12/12/2015 9:20 AM BIOLOGICS SPECIALIST 12/12/2015 9:29 AM BIOLOGICS SPECIALIST Jorge Clifford MD LAB - URINALYSIS ORD ERABLES [facility] [address] [place] [address] * Stone Protocol CT (08/10/2015 3:19 PM CDT) Anatomical Region Laterality Modality Abdomen, Pelvis Computed Tomogra phy 08/10/2015 3:23 PM CDT Impressions 08/10/2015 3:[address] of the abdomen and pelvis demonstrates no acute appearing abnormality. Narrative 08/10/2015 3:[address] Abdomen and Pelvis Noncontrast Indication: Generalized abdominal pain. Technique: CT images of the abdomen and pelvis were obtained without administration of intravenous contrast. Oral contrast was not administered. ??2D Computer generated reformations were obtained in the coronal plane. Findings: CT Abdomen: No calcified stones can be seen in the right or left kidneys. The liver, spleen and pancreas have a homogeneous CT density, but cannot be fully evaluated on this limited protocol exam. ??No dilated bowel loops can be seen. ??There is no free fluid in the abdomen. CT Pelvis: Physiologic volume of free fluid is seen in the pelvis. No focal inflammatory process is appreciated. ??No pelvic mass is present. Procedure Note Amanda Benedict MD - 08/10/2015 CT Abdomen and Pelvis Noncontrast Indication: Generalized abdominal pain. Technique: CT images of the abdomen and pelvis were obtained without administration of intravenous contrast. Oral contrast was not administered. 2D Computer generated reformations were obtained in the coronal plane. Findings: CT Abdomen: No calcified stones can be seen in the right or left kidneys. The liver, spleen and pancreas have a homogeneous CT density, but cannot be fully evaluated on this limited protocol exam. No dilated bowel loops can be seen. There is no free fluid in the abdomen. CT Pelvis: Physiologic volume of free fluid is seen in the pelvis. No focal inflammatory process is appreciated. No pelvic mass is present. IMPRESSION CT of the abdomen and pelvis demonstrates no acute appearing abnormality. Odell Christian MD CT ORDERABLES * BASIC METABOLIC PANEL (CALCIUM TOTAL) (08/04/2015 10:59 AM CDT) [facility] Glucose 79 74 - 106 mg/dL 08/04/2015 11:34 AM [facility] Sodium 140 136 - 145 mmol/L 08/04/2015 11:34 [facility] Potassium 3.5 3.5 - 5.1 mmol/L 08/04/2015 11:34 AM [facility] Chloride 107 98 - 107 mmol/L 08/04/2015 11:34 AM [facility] CO2 28 22 - 31 mmol/L 08/04/2015 11:34 AM [facility] Calcium 8.7 8.5 - 10.1 mg/dL 08/04/2015 11:34 AM [facility] Anion Gap 5 5 - 20 mmol/L 08/04/2015 11:34 AM [facility] BUN 12 7 - 21 mg/dL 08/04/2015 11:34 AM [facility] Creatinine 0.66 0.50 - 1.30 mg/dL 08/04/2015 11:34 AM [facility] eGFR by MDRD >60 >60 mL/min/1.7 3m2 08/04/2015 11:34 AM [facility] eGFR by MDRD >60 >60 mL/min/1.7 3m2 08/04/2015 11:34 AM CDT [facility] Blood BLOOD SPECIMEN / Unknown Venipuncture / Unknown 08/04/2015 10:59 AM CDT 08/04/2015 11:10 AM CDT Kasie Rodriguez MD LAB - CHEMISTRY ORDE RABLES Performing Organization Address City/[facility]/ZIP Co de Phone Number [facility] [address] [place], [place] [id number] * HCG URINE QUALITATIVE (08/04/2015 10:26 AM CDT) hCG Qualitative Urine Negative Negative 08/04/2015 11:28 AM CDT [facility] Urine URINE / Unknown Collection / Unknown 08/04/2015 10:26 AM CDT 08/04/2015 11:10 AM CDT Kasie Rodriguez MD LAB - URINALYSIS ORD ERABLES Performing Organization Address [facility] Co de Phone Number [facility] [address] [place] [address] * URINALYSIS ROUTINE AUTO (08/04/2015 10:25 AM CDT) Color UA Yellow Straw, Yellow, Dark Yellow 08/04/2015 10:36 AM T [facility] Clarity UA Clear 08/04/2015 10:36 AM T [facility] Specific [place] UA 1.015 1.005 - 1.030 08/04/2015 10:36 AM T [facility] pH UA 6.0 5.0 - 8.0 pH 08/04/2015 10:36 AM T [facility] Protein UA Negative Negative 08/04/2015 10:36 AM CDT [facility] Blood UA Negative Negative 08/04/2015 10:36 AM T [facility] Leukocyte UA Negative Negative 08/04/2015 10:36 AM T [facility] Nitrite UA Negative Negative 08/04/2015 10:36 AM T [facility] Glucose UA Negative Negative 08/04/2015 10:36 AM T [facility] Ketone UA Negative Negative 08/04/2015 10:36 AM CDT [facility] Bilirubin UA Negative Negative 08/04/2015 10:36 AM CDT [facility] Urobilinogen UA 0.2 0.1 - 1.0 EU/dL 08/04/2015 10:36 AM CDT [facility] Urine URINE SPECIMEN OBTAINED BY CLEAN CATCH PROCEDURE / Unknown 08/04/2015 10:25 AM CDT 08/04/2015 10:28 AM CDT Kasie Rodriguez MD LAB - URINALYSIS ORD ERABLES [facility] [address] [address] * MRI SPINE CERVICAL NON CONTRAST (06/25/2015 2:05 PM CDT) Anatomical Region Laterality Modality Pelvis Magnetic Resonan ce 06/25/2015 2:21 PM CDT Impressions 06/25/2015 3:16 PM CDT Normal MRI cervical spine. Edited by Michell Jesus on 06/25/2015 3:06 PM Narrative 06/25/2015 3:16 PM CDT MRI CERVICAL SPINE WITHOUT CONTRAST Indication: Left arm pain and numbness for one week. Technique: Multisequence, multiplanar MRI sequences of the cervical spine without contrast. Findings: No prior is available. Visible brain unremarkable. Spinal cord unremarkable. No compression deformity or bone marrow edema is seen. Visible lung apices are unremarkable. No soft tissue abnormality is seen. C2-C3: No stenosis. C3-C4: No stenosis. C4-C5: No stenosis. C5-C6: No stenosis. C6-C7: No stenosis. C7-T1: No stenosis. Procedure Note Ricardo Plata MD - 06/25/2015 MRI CERVICAL SPINE WITHOUT CONTRAST Indication: Left arm pain and numbness for one week. Technique: Multisequence, multiplanar MRI sequences of the cervical spine without contrast. Findings: No prior is available. Visible brain unremarkable. Spinal cord unremarkable. No compression deformity or bone marrow edema is seen. Visible lung apices are unremarkable. No soft tissue abnormality is seen. C2-C3: No stenosis. C3-C4: No stenosis. C4-C5: No stenosis. C5-C6: No stenosis. C6-C7: No stenosis. C7-T1: No stenosis. IMPRESSION Normal MRI cervical spine. Edited by Michell Jesus on 06/25/2015 3:06 PM Luan Last MD MR ORDERABLES * MRI BRAIN NON CONTRAST (06/25/2015 2:05 PM CDT) Anatomical Region Laterality Modality Head Magnetic Resonan ce 06/25/2015 2:20 PM CDT Impressions 06/25/2015 2:21 PM CDT Normal brain MRI. Narrative 06/25/2015 2:21 PM CDT MRI Brain Without Contrast Clinical Indication: Left arm pain and numbness for one week Technique: Multisequence, multiplanar MRI sequences of the brain without contrast. Findings: No Chiari malformation is seen. The sella is unremarkable. No diffusion restriction is seen. No mass, hemorrhage, or midline shift is seen. The ventricular size is normal. There are no extra-axial fluid collections. Flow void is seen in the major intracranial vessels. The paranasal sinuses and mastoid air cells are clear. Procedure Note Ricardo Plata MD - 06/25/2015 MRI Brain Without Contrast Clinical Indication: Left arm pain and numbness for one week Technique: Multisequence, multiplanar MRI sequences of the brain without contrast. Findings: No Chiari malformation is seen. The sella is unremarkable. No diffusion restriction is seen. No mass, hemorrhage, or midline shift is seen. The ventricular size is normal. There are no extra-axial fluid collections. Flow void is seen in the major intracranial vessels. The paranasal sinuses and mastoid air cells are clear. IMPRESSION Normal brain MRI. Luan Last MD MR ORDERABLES * EKG 12-LEAD (06/24/2015 8:36 PM CDT) Ventricular Rate 60 BPM [facility] Atrial Rate 60 BPM [facility] P-R Interval 120 ms [facility] QRS Duration ms 80 ms [facility] Q-T Interval ms 402 ms [facility] QTC Calculation (Bezet) 402 ms [facility] Calculated P [place] 61 degrees [facility] Calculated R [place] 66 degrees [facility] Calculated T [place] 52 degrees [facility] Interpretation EKG Normal sinus rhythm Normal ECG No previous ECGs available Confirmed by MD KELI, LORI Ponce (3) on 06/26/2015 8:30:40 AM [facility] 06/24/2015 8:36 PM CDT 06/26/2015 8:30 AM CDT Ankit Astorga MD ECG ORDERABLE S [facility]
--- OUTSIDE RECORDS SUMMARY | 2024-11-14 20:40 | XMS_ITS | Clinical Summary ---
Author Organization [facility] Address [address] [place] [address]. [place] [address] [place] [address] Care Team Providers Care Injection Molding Operator Name Role Phone None, Provider Primary Care Provider Unavaila ble Allergies Active Allergy Reactions Criticality Noted Date Comments Prochlorperazine Anxiety Low 05/15/2024 Social History Tobacco Use Types Packs/Day Years Used Date Smoking Tobacco: Every Day Cigarettes Smokeless Tobacco: Never Tobacco Cessation:Ready to Q uit: Not Asked; Counseling Given: Not Answered Alcohol Use Standard Drinks/Week Comments Not Currently 0 (1 standard drink = 0.6 oz pur e alcohol) Estimated Date of Delivery Comme nts Yes 12/14/2024 Sex and Gender Information Value Date Recorded Sex Assigned at Not on file 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 Gender Identity Not on file Sexual Orientation Not on file Last Filed Vital Signs Vital Sign Reading Time Taken Comments Blood Pressure 142/85 05/15/2024 5:03 AM CDT Pulse 86 05/15/2024 5:03 AM CDT Temperature 36.5 ??C (97.7 ??F) 05/15/2024 5:03 AM CD T Respiratory Rate 22 05/15/2024 5:03 AM CDT Oxygen Saturation 100% 05/15/2024 5:03 AM CDT Inhaled Oxygen Concentration - - Weight 58.2 kg (128 lb 4.9 oz) 05/15/2024 5:03 A M CDT Height 162.6 cm (5' 4 ) 05/15/2024 5:03 AM CDT Body Mass Index 22.02 05/15/2024 5:03 AM CDT Plan of Treatment Health Maintenance Due Date Last Done Comments Annual Physical 1985 Pneumococcal Vaccine: Pediatrics (0 to 5 Years) and At-Risk Patients (6 to 64 Years) (1 of 2 - PCV) 1988 Hepatitis C 2000 DTaP, Tdap and Td Vaccines ( 1 - Tdap) 2001 Hepatitis B Vaccines (1 of 3 - 19+ 3-dose series) 2001 Cervical Cancer Screening Pa p with HPV Testing (Age 30 to 64) Every 5 Years 2012 Cervical Cancer Screening Pa p Smear (Age 30 to 64) Every 3 Years 10/07/2018 10/07/2015 Cervical Cancer Screening wi th HPV 10/07/2018 Mammogram Screening 2022 04/15/2020, 04/09/2020, 02/02/2019 COVID-19 Vaccine ( - 2023-2 5 season) 2024 Influenza Adult (#1) 2024 RSV Immunization or 60+ Years (1 - Risk 1-dose series) 10/19/2024 HPV Vaccines Aged Out No longer eligi ble based on patient's age to complete this topic Meningococcal B Vaccine Aged Out No l onger eligible based on patient's age to complete this topic Meningococcal Vaccine Aged Out No skylar radha eligible based on patient's age to complete this topic RSV Immunizations Under 20 Months Aged Out No longer eligible b ased on patient's age to complete this topic Insurance Care Teams Injection Molding Operator Relationship Specialty Start Date End Date None, Provider, MD PCP - General UNKNOWN PHYSICIAN SPECIALTY 05/15/24
--- OUTSIDE RECORDS SUMMARY | 2024-11-14 20:40 | XMS_ITS | Continuity of Care Document ---
Author Organization [facility] Address [address] [place] [address] Phone Care Team Providers Care Fire Manager Name Role Phone Glenis Hamilton Unavailable Unavailab le Advance Directives Directive Yes / No Effective Date File Name No Information Encounters Encounter Description Practice Location Reason(s) For Visit Diagnoses Date Provider Providers Copied on Encounter [id number] [address], [place], [place], [id number], [place] tel:[phone] [facility] No Information Cricket Galvin. [address] [place] [address], [id number], [place]. tel:[phone] Family History Family Member Type Diagnosis Age At Onset No Information Payers Payer name Insurance type Covered republican ID Authoriza tion(s) No Information Social History Type Description Quantity Date Captured Comments Sex Female Smoking Status No Information Chief Complaint And Reason For Visit No Information Reason For Referral Reason For Referral No Information History Of Present Illness Encounter Date Complaint History Of Prese nt Illness No Information Functional Status Date Functional Assessmen t No Information Instructions Date Instruction Additional Infor mation No Information Assessments Type Assessment Date No Information Patient Care Teams Name Effective Dates (start - stop) Status Members No Information
--- OUTSIDE RECORDS SUMMARY | 2024-11-14 20:40 | XMS_ITS | Clinical Summary ---
Author Organization [facility] Address [address] [place] [address] Care Team Providers Care Manager Of Training And Development Name Role Phone Unavailable Primary Care Provider Unavailabl e Source Comments [facility],non-owned Affiliates and Associated Physician Practices is amultiple site organization consisting of ambulatory clinics and hospital sitesin [place], [place] and [place]. This disclosure is being madepursuant to the Care Everywhere program and may not contain all information available regarding this patient. 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 Inhaled Oxygen Concentration - - Weight 49.9 kg (110 lb) 04/07/2020 11:24 AM CDT Height 162.6 cm (5' 4 ) 08/01/2023 8:17 AM CDT Body Mass Index 18.88 04/07/2020 11:24 AM CDT Plan of Treatment Health Maintenance Due Date Last Done Comments LIPID TESTING 1982 PAP SMEAR 1982 HIV SCREENING 1997 HEPATITIS C SCREENING 06/30/2000 DTAP/TDAP/TD VACCINES (1 - Tdap) 2001 HEPATITIS B VACCINE (1 of 3 - 19+ 3-dose series) 2001 MAMMOGRAM 04/09/2022 04/09/2020, 02/02/2019 COVID-19 VACCINE (1 - 2023-2 5 season) 2024 INFLUENZA VACCINE (#1) 2024 DEPRESSION SCREENING 10/17/2024 ZOSTER VACCINE (1 of 2) 2032 HIB VACCINE Aged Out No longer eligi ble based on patient's age to complete this topic HPV VACCINE Aged Out No longer eligi ble based on patient's age to complete this topic MENINGOCOCCAL (Group B) VACCINE Aged Out No longer eligible b ased on patient's age to complete this topic MENINGOCOCCAL VACCINE Aged Out No skylar radha eligible based on patient's age to complete this topic PNEUMOCOCCAL VACCINE Aged Out No long er eligible based on patient's age to complete this topic Procedures Procedure Name Priority Date/Time Associated Diagnosis [...] 3-D digital Tomosynthesis was performed. TECHNOLOGIST: Jazzmine Brower, RT (R)(M) TISSUE DENSITY: Heterogeneously dense [...] if suspicious findings are present clinically. An [employer] certified facility. [facility] utilize [employer] as a reminder system to notify patients of their next recommended mammograms. Edited by Steff Gonzalez on 04/09/2020 2:52 PM *Reading Radiologist: Zhou Nicholas on 04/09/2020 at 2:58 PM aKndi Zavala DO MAMMO ORDERABLES from Last 3 Months or Most Recently Relevant to Health Maintenance Advance Directives * Full Code (Latest Code Status on File) Date Activated Date Inactivated Comments 06/24/2015 10:34 PM 06/25/2015 12:17 AM
--- OUTSIDE RECORDS SUMMARY | 2024-11-14 20:40 | XMS_ITS | Clinical Summary ---
Author Organization [facility] Address [address] [place] [phone] Phone Care Team Providers Care Hematologist Oncologist Name Role Phone No, Physician Primary Care Provider [phone] Sarika Morrissey MD Unavailable [phone] Allergies Active Allergy Reactions Criticality Noted Date Comments Prochlorperazine Mental status changes Low 12/09/19 21 Medications vit [id number]-dha 27mg iron- 800 mcg-250 mg capsule Take by mouth Active dextroamphetamine- amphetamine XR (ADDERALL XR) 15 mg 24 hr capsule Take 40 mg by mouth every morning Active heparin flush,porcine,-0.9 NaCl 100 unit/mL kit Infuse into a venous catheter Active aspirin 81 mg enteric coated tablet Take 1 tablet (81 mg total) by mouth daily Active budesonide (PULMICORT) 0.5 mg/2 mL nebulizer solution Take 2 mL (0.5 mg total) by nebulization every 6 (six) hours as needed Rinse mouth with water after use. Do not swallow. 025 Discontin ued(Thera py completed ) albuterol 2.5 mg /3 mL (0.083 %) nebulizer solution Take 3 mL (2.5 mg total) by nebulization every 6 (six) hours as needed for wheezing 025 Discontin ued(Thera py completed ) clonazePAM (KlonoPIN) 0.5 mg tabletIndications: Panic Disorder Take 1 tablet (0.5 mg total) by mouth 2 (two) times a day 12 tablet 03/03/20 21 025 Discontin ued(Thera py completed ) predniSONE (DELTASONE) 20 mg tabletIndications: autoimmune disease Take 1 tablet (20 mg) by mouth 2 (two) times a day 10 tablet 03/03/20 025 Discontin ued(Thera py completed ) Virtussin AC 10-100 mg/5 mL liquid TAKE 5 ML BY MOUTH EVERY 6 HOURS 01/24/20 025 Discontin ued(Thera py completed ) traMADoL (ULTRAM) 50 mg tablet Take 1 tablet (50 mg total) by mouth every 4 (four) hours as needed for pain 10 tablet 05/24/20 025 Discontin ued(Pregn vanesa) amoxicillin-clavul anate (AUGMENTIN) 875-125 mg per tablet Take 1 tablet by mouth every 12 (twelve) hours 14 tablet 06/08/20 025 Discontin ued(Thera py completed ) oxyCODONE-acetamin ophen (PERCOCET) 5-325 mg per tabletIndications: Pain Take 1 tablet by mouth every 6 (six) hours as needed for pain No more than 6 tablets a day 15 tablet 08/20/20 025 Discontin ued(Pregn vanesa) polyethylene glycol (MIRALAX) 17 gram/dose powder Take 17 g by mouth daily 116 g 08/26/20 025 Discontin ued(Thera py completed ) ondansetron ODT (ZOFRAN-ODT) 4 mg disintegrating tablet Dissolve 1 tablet for mild to moderate nausea or vomiting or 2 tablets for severe nausea or vomiting oral twice a day as needed. 10 tablet 08/26/20 025 Discontin ued(Thera py completed ) tiZANidine (ZANAFLEX) 4 mg tabletIndications: Muscle Spasm Take 1 tablet (4 mg total) by mouth every 6 (six) hours as needed for muscle spasms 12 tablet 10/01/20 025 Discontin ued(Thera py completed ) lisdexamfetamine (VYVANSE) 70 mg capsule Take 1 capsule (70 mg total) by mouth every morning 025 Discontin ued(Alter benjamin therapy) docosahexaenoic acid 300 mg capsule Take by mouth 025 Discontin ued(Thera py completed ) Active Problems Problem Noted Date Diagnosed Date Attention deficit hyperactivity disorder 021 Insomnia 10/01/2021 Recurrent major depression 10/01/2021 Tobacco use disorder, continuous 10/01/2021 Estimated Date of Delivery Comme nts Yes 12/09/2024 Based on Patient Reported Encounters Date Type Department Care Team Description 11/06/2024 7:49 PM MANPOWER DEVELOPMENT SPECIALIST MANAGER - 11/06/2024 9:18 PM MANPOWER DEVELOPMENT SPECIALIST MANAGER Emergency [facility] OB Emergency Department [address] [place] [address] Rob Abdul MD Pelvic pain affecting in third trimester, antepartum (Primary Dx); 35 weeks gestation of Discharge Disposition: Discharge to home or self care from Last 3 Months Surgical History Surgery Date Site/Laterality Comments INDUCED UPPER GASTROINTESTINAL ENDOSCOPY SECTION Medical History Medical History Date Comments Meningitis Crohn's colitis (CMS/HCC) (HCC) Anxiety Yanique-Danlos syndrome Crohn's disease (CMS/HCC) ([facility]) Adhd Social History Tobacco Use Types Packs/Day Years Used Date Smoking Tobacco: Former Cigarettes Smokeless Tobacco: Never Tobacco Cessation:Counseling Given: Not Answered Alcohol Use Standard Drinks/Week Comments Not Currently 0 (1 standard drink = 0.6 oz pur e alcohol) Overall Financial Resource Strain (CARDIA) Answe r Date Recorded How hard is it for you to pa y for the very basics like food, housing, medical care, and heating? Not hard at all 11/06/2024 Hunger Vital Sign Answer Date Recorded Within the past 12 months, y ou worried that your food would run out before you got the money to buy more. Never true 11/06/19 25 Within the past 12 months, t he food you bought just didn't last and you didn't have money to get more. Never true 11/06/2024 PRAPARE - Transportation Answer Date Re corded In the past 12 months, has l ack of transportation kept you from medical appointments or from getting medications? No 10/18 In the past 12 months, has l ack of transportation kept you from meetings, work, or from getting things needed for daily living? No 11/06/2024 Housing Stability Vital Sign Answer Luke e Recorded In the last 12 months, was t here a time when you were not able to pay the mortgage or rent on time? No 11/06/2024 Number of Times Moved in the Last Year Not on fi le 11/06/2024 At any time in the past [address] [facility], were you homeless or living in a snf (including now)? No 11/06/2024 Personal Safety Answer Date Recorded Have you ever been in or are you currently in a harmful physical or emotional relationship or is someone making you feel afraid or unsafe? Denies 11/06/2024 Estimated Date of Delivery Comme nts Yes 12/09/2024 Based on Patient Reported Sex and Gender Information Value Date Recorded Sex Assigned at Not on file Legal Sex Female 9:12 PM MANPOWER DEVELOPMENT SPECIALIST MANAGER Gender Identity Not on file Sexual Orientation Not on file Obstetrics History Para Term AB IAB SAB Ectopic Multiple Livin g Live Births 10 3 2 1 6 6 1 1 Date Outcome GA Total Labor Labor/2nd/3rd Weight Sex Type Anes PTL Ruby A1 A5 Name Clin SAB SAB SAB SAB SAB SAB 06/04 Term 40w 0d F Vag-Spo nt Complications:None 11/26 Term 37w 0d F Vaginal Living 05/02 34w 0d M CS-LTra nv Current Summary Episode Dates Number of Fetuses Estimated Date of Delivery 11/06/2024 - Present (11/14/2024) 12/09/2024 (set by Marita Trimble, RN on 11/06/2024 based on Patient Reported) Dating Summary Based On DOMENICA GA Diff Patient Reported 12/09/2024 Working Vitals Pregravid Weight Height TWG (As of 11/14/2024) Pregrav id BMI 162.6 cm (5' 4 ) Date GA Fund Present FHR Mvmt BP Weight Edema Alb Glu Ket Dil/ Eff/Sta 5 35w2d Inpatient data not displayed here. See encounter summary. Last Filed Vital Signs Vital Sign Reading Time Taken Comments Blood Pressure 122/74 11/06/2024 8:05 PM MANPOWER DEVELOPMENT SPECIALIST MANAGER Pulse 113 11/06/2024 8:05 PM MANPOWER DEVELOPMENT SPECIALIST MANAGER Temperature 36.7 ??C (98.1 ??F) 11/06/2024 8:05 PM CS T Respiratory Rate 18 11/06/2024 8:05 PM MANPOWER DEVELOPMENT SPECIALIST MANAGER Oxygen Saturation 100% 11/06/2024 8:05 PM MANPOWER DEVELOPMENT SPECIALIST MANAGER Inhaled Oxygen Concentration - - Weight 69.9 kg (154 lb) 11/06/2024 8:28 PM MANPOWER DEVELOPMENT SPECIALIST MANAGER Height 162.6 cm (5' 4 ) 11/06/2024 8:28 PM MANPOWER DEVELOPMENT SPECIALIST MANAGER Body Mass Index 26.43 11/06/2024 8:28 PM MANPOWER DEVELOPMENT SPECIALIST MANAGER Plan of Treatment Health Maintenance Due Date Last Done Comments Breast Cancer Screening-Mammogram 1982 Cervical Cancer Screening 1982 Depression Screening 1982 Hepatitis C Screening 1982 DTaP/Tdap/Td Vaccine (1 - Tdap) 1993 Varicella Vaccines (1 of 2 - 13+ 2-dose series) 1995 Hepatitis B Screening 2000 Regular Well Visit/Exam 18-64 2000 Influenza Vaccine (#1) 2024 HPV Vaccines Aged Out No longer eligi ble based on patient's age to complete this topic Pneumococcal vaccine <65 Aged Out No longer eligible based on patient's age to complete this topic Procedures Procedure Name Priority Date/Time Associated Diagnosis Comments URINALYSIS AND REFLEX TO MICROSCOPIC AND CULTURE STAT 11/06/2024 8:31 PM MANPOWER DEVELOPMENT SPECIALIST MANAGER from Last 3 Months Results * Urinalysis reflex to microscopic and culture Urine (11/06/2024 8:31 PM MANPOWER DEVELOPMENT SPECIALIST MANAGER) Color, ur Straw Yellow Comment:Testing performed by : [address] [address] Clarity, ur Clear Clear RU Comment:Testing performed by : [address] [address] Specific gravity, ur 1.005 1.003 - 1.030 RU Comment:Testing performed by : [address] [address] pH, urine 6.5 RU Comment: Interpretive Data ? Urine pH is affected by diet, medications, systemic acid-base disturbances, and renal tubular function. ??pH may affect urinary stone formation. ??For example, urine pH below 6.0 may help reduce the tendency for calcium phosphate stones and pH greater than 6.0 may reduce the tendency for uric acid stone formation. Source: [facility] Current Interpretive Data was last revised on 2017 Testing performed by: [facility], [address] [place] [address], [place]., [address] Protein, ur ql Negative Negative RU Comment:Testing performed by : [facility], [address] [place] [address], [place]., [address] Glucose, ur ql Negative Negative RU Comment:Testing performed by : [address], [place]., [address] Ketones, ur Negative Negative RU Comment:Testing performed by : [address], [place]., [address] Bilirubin, ur Negative Negative RU Comment:Testing performed by : [address], [place]., [address] Blood, ur Negative Negative RU Comment:Testing performed by : [address], [place]., [address] Urobilinogen, ur <2.0 <2.0 mg/dL RU Comment:Testing performed by : [address], [place]., [address] Nitrite, ur Negative Negative RU Comment:Testing performed by : [address], [place]., [address] Leukocyte esterase, ur Negative Negative RU Comment:Testing performed by : [address], [place]., [address] UA reflex comment Reflex conditions for microscopic UA and culture not met. RU Comment:Testing performed by : [address] [address] Urine 11/06/2024 8:31 PM MANPOWER DEVELOPMENT SPECIALIST MANAGER 11/06/2024 8:33 PM MANPOWER DEVELOPMENT SPECIALIST MANAGER us Dennis Wolff MD LAB MICROBIOLOGY - GENERAL ORDERABLES Final Result RU SOTO [id number] [facility] [place] [address] from Last 3 Months Insurance [facility] Care Teams Hematologist Oncologist Relationship Specialty Start Date End Date No, Physician PCP - General 05/20/21 Sarika Morrissey MD [address] [place] [phone] 12/09/20
--- OUTSIDE RECORDS SUMMARY | 2024-11-14 20:40 | XMS_ITS | Continuity of Care Document ---
Author Organization [facility] Address [address] [place] [address] Phone Care Team Providers Care Burglar Alarm Assembler Name Role Phone No Information Unavailable Unavailable Medications Medication Instructions Dosage Effective Dates (start - stop) Status Comments No Drug Therapy Prescribed Advance Directives Directive Yes / No Effective Date File Name No Information Encounters Encounter Description Practice Location Reason(s) For Visit Diagnoses Date Provider Providers Copied on Encounter [facility], [address] [place] [address], [facility], [place] tel:[phone] No Information No Information Family History Family Member Type Diagnosis Age At Onset No Information Payers Payer name Insurance type Covered libertarian ID Authoriza tion(s) No Information Social History Type Description Quantity Date Captured Comments Sex Female Smoking Status No Information Chief Complaint And Reason For Visit No Information History Of Present Illness Encounter Date Complaint History Of Prese nt Illness No Information Medications Administered Medication Instructions Dosage Effective Dates (start - stop) Status Comments No Drug Therapy Prescribed Instructions Date Instruction Additional Infor mation No Information Assessments Type Assessment Date No Information
--- OUTSIDE RECORDS SUMMARY | 2024-11-14 20:40 | XMS_ITS | Referral Summary ---
Author Organization [facility] Address [address] [place] [phone] Phone Care Team Providers Care Consumer Relations Specialist Name Role Phone No, Physician Primary Care Provider [phone] Sarika Morrissey MD Unavailable [phone] Encounters Date Type Department Care Team Description 11/06/2024 7:49 PM SUPERVISOR MICROWAVE - 11/06/2024 9:18 PM [facility] Emergency [facility] OB Emergency Department [facility] [place] [address] Rob Abdul MD Pelvic pain affecting in third trimester, antepartum (Primary Dx); 35 weeks gestation of Discharge Disposition: Discharge to home or self care from Last 3 Months Allergies Active Allergy Reactions Criticality Noted Date Comments Prochlorperazine Mental status changes Low 12/09/19 21 Medications vit 08-fzlp-[id number]-dha 27mg iron- 800 mcg-250 mg capsule Take [...] (two) times a day 10 tablet 03/03/20 21 025 Discontin ued(Thera py completed ) Virtussin AC 10-100 mg/5 mL liquid TAKE 5 ML BY MOUTH EVERY 6 HOURS 01/24/20 21 025 Discontin ued(Thera py completed ) traMADoL (ULTRAM) 50 mg tablet Take 1 tablet (50 mg total) by mouth every 4 (four) hours as needed for pain 10 tablet 05/24/20 21 025 Discontin ued(Pregn vanesa) amoxicillin-clavul anate (AUGMENTIN) 875-125 mg per tablet Take 1 tablet by mouth every 12 (twelve) hours 14 tablet 06/08/20 21 025 Discontin ued(Thera py completed ) oxyCODONE-acetamin ophen (PERCOCET) 5-325 mg per tabletIndications: Pain Take 1 tablet by mouth every 6 (six) hours as needed for pain No more than 6 tablets a day 15 tablet 08/20/20 025 Discontin ued(Pregn vaensa) polyethylene glycol (MIRALAX) 17 gram/dose powder Take 17 g by mouth daily 116 g 08/26/20 21 025 Discontin ued(Thera py completed ) ondansetron ODT (ZOFRAN-ODT) 4 mg disintegrating tablet Dissolve 1 tablet for mild to moderate nausea or vomiting or 2 tablets for severe nausea or vomiting oral twice a day as needed. 10 tablet 08/26/20 21 025 Discontin ued(Thera py completed ) tiZANidine (ZANAFLEX) 4 mg tabletIndications: Muscle Spasm Take 1 tablet (4 mg total) by mouth every 6 (six) hours as needed for muscle spasms 12 tablet 10/01/20 21 025 Discontin ued(Thera py completed ) lisdexamfetamine [...] nts Yes 12/09/2024 Based on Patient Reported Social History Tobacco Use Types Packs/Day Years [...] any time in the past 12 m [facility], were you homeless or living in a senior care (including now)? No 11/06/2024 Personal Safety Answer [...] on file Legal Sex Female 9:12 PM SUPERVISOR MICR[employer]AVE Gender Identity Not on file Sexual Orientation Not on file Last Filed Vital Signs Vital Sign Reading Time Taken Comments Blood Pressure 122/74 11/06/2024 8:05 PM SUPERVISOR MICROWAVE Pulse 113 11/06/2024 8:05 PM SUPERVISOR MICROWAVE Temperature 36.7 ??C (98.1 ??F) 11/06/2024 8:05 PM CS T Respiratory Rate 18 11/06/2024 8:05 PM SUPERVISOR MICROWAVE Oxygen Saturation 100% 11/06/2024 8:05 PM SUPERVISOR MICROWAVE Inhaled Oxygen Concentration - - Weight 69.9 kg (154 lb) 11/06/2024 8:28 PM SUPERVISOR MICROWAVE Height 162.6 cm (5' 4 ) 11/06/2024 8:28 PM SUPERVISOR MICROWAVE Body Mass Index 26.43 11/06/2024 8:28 PM SUPERVISOR MICROWAVE Plan of Treatment Not on file Procedures Procedure Name Priority Date/Time Associated Diagnosis Comments URINALYSIS AND REFLEX TO MICROSCOPIC AND CULTURE STAT 11/06/2024 8:31 PM SUPERVISOR MICROWAVE from Last 3 Months Results * Urinalysis reflex to microscopic and culture Urine (11/06/2024 8:31 PM SUPERVISOR MICROWAVE) Color, ur Straw Yellow Comment:Testing performed by : [address] [address] Clarity, ur Clear Clear RU Comment:Testing performed by : [address] [address] Specific gravity, ur 1.005 1.003 - 1.030 RU Comment:Testing performed by : [address] [address] pH, urine 6.5 RU Comment: Interpretive Data ? Urine pH is affected by diet, medications, systemic acid-base disturbances, and renal tubular function. ??pH may affect urinary stone formation. ??For example, urine pH below 6.0 may help reduce the tendency for calcium phosphate stones and pH greater than 6.0 may reduce the tendency for uric acid stone formation. Source: [facility] Current Interpretive Data was last revised on 2017 Testing performed by: [facility], [address] [place] [address]., [address] Protein, ur ql Negative Negative RU Comment:Testing performed by : [address] [address] Glucose, ur ql Negative Negative RU Comment:Testing performed by : [address], [place]., [address] Ketones, ur Negative Negative RU Comment:Testing performed by : [address], [place]., [address] Bilirubin, ur Negative Negative RU Comment:Testing performed by : [address] [address] Blood, ur Negative Negative RU Comment:Testing performed by : [address], [place]., [address] Urobilinogen, ur <2.0 <2.0 mg/dL RU Comment:Testing performed by : [address] [address] Nitrite, ur Negative Negative RU Comment:Testing performed by : [address] [address] Leukocyte esterase, ur Negative Negative RU Comment:Testing performed by : [address] [address] UA reflex comment Reflex conditions for microscopic UA and culture not met. RU Comment:Testing performed by : [address] [address] Urine 11/06/2024 8:31 PM SUPERVISOR MICROWAVE 11/06/2024 8:33 PM SUPERVISOR MICROWAVE us Dennis Wolff MD LAB MICROBIOLOGY - GENERAL ORDERABLES Final Result RU [address] [facility] [place] [address] from Last 3 Months Insurance [facility] Care Teams Consumer Relations Specialist Relationship Specialty Start Date End Date No, Physician PCP - General 05/20/21 Sarika Morrissey MD [address] [place] [phone] 12/09/20
[2024-11-14 20:45] VITALS: BP 117/82; PULSE 98
[2024-11-14 21:00] VITALS: BP 120/74; PULSE 100
--- NOTE | 2024-11-14 21:05 | OBADM ---
This patient, Jeanine Montoya, admitted to the OB room Labor/Delivery/Recovery 120 for observation. Patient/family oriented to hospital policies and general routines including ID bracelet, bed and alarms, visiting hours, pain management, procedures, bathroom and other care routines, personal items, smoking policy, room service/diet, and visiting hours. Patient/Family are encouraged to report perceived risks to care and to ask questions if they do not understand what they are told or what they should do.
[2024-11-14 21:07] LABS: Add Urine Microscopic? YES; Appearance Urine Clear (Clear); Bacteria Urine None Seen /hpf; Bilirubin Urine Negative (Negative); Blood Urine 1+ (Negative); Color Urine Yellow (Yellow); Glucose Urine UA Negative (Negative); Hyaline Casts Urine Present /lpf; Ketones Urine Negative (Negative); Leukocyte Esterase Ur Negative LEU/UL (Negative); Nitrate Urine Negative (Negative); Non Pathogenic Casts 0-2; Protein Urine 2+ mg/dL (Negative); RBC Urine 21-50 /hpf (0-2); Squamous Epithelial Cell Urine Occasional /hpf (Few); WBC Urine 0-5 /hpf (0-3)
[2024-11-14 21:15] VITALS: BP 125/80; PULSE 95
--- NOTE | 2024-11-15 07:33 | PM.OBTRLD ---
OB - Triage/Final Diagnosis Visit Information Reason for evaluation: threatened labor Comments/Additional reasons for admission: I have assessed the risk for this patient, Jeanine Montoya, and determined that she would benefit from observation care. Evaluation Laboratory results: Laboratory Tests 11/14/24 20:47 Urine Color Yellow Urine Appearance Clear Urine pH 6.0 Ur Specific [place] 1.020 Urine Protein 2+ H Urine Glucose (UA) Negative Urine Ketones Negative Ur Blood (Man) 1+ H Urine Nitrate Negative Urine Bilirubin Negative Urine Urobilinogen 1.0 Leukocyte Esterase Rfl Negative Urine RBC 21-50 H Urine WBC 0-5 Ur Squamous Epith Cells Occasional Urine Bacteria None seen Urine Casts 0-2 Hyaline Casts Present Vital signs: Vital Signs - 24 hr 11/14/24 20:45 11/14/24 21:00 11/14/24 21:05 Pulse Rate 98 100 Blood Pressure 117/82 120/74 Oxygen Delivery Room Air 11/14/24 21:15 Pulse Rate 95 Blood Pressure 125/80 Oxygen Delivery
== END 2024-11-14 21:30 | disposition home or self-care (01) ==
PROVIDERS: Admitting Provider Obstetrics & Gynecology Gynecology; Visit Provider Obstetrics & Gynecology Gynecology
DX: O47.03 False labor before 37 completed weeks of gestation, third trimester (principal); Z3A.36 36 weeks gestation of pregnancy
CPT/HCPCS: 59025; 81001; G0378; G0379

== ENCOUNTER 2024-11-20 16:24 | Outpatient (CLI) | payer OTHER, SELFPAY ==
[2024-11-20] VITALS (8 sets, daily range): BP systolic 109–125; BP diastolic 66–83; PULSE 87–101; BMI 27.6
--- OUTSIDE RECORDS SUMMARY | 2024-11-20 16:31 | XMS_ITS | Encounter Summary ---
Author Organization [facility] Address [address] [place] [address] Care Team Providers Care Automobile Body Repair Supervisor Name Role Phone Unavailable Primary Care Provider Unavailabl e Encounter Details Date Type Department Care Team (Late st Contact Info) Description 01/21/2020 Digital Self COVID-1 9 Monitoring [facility] ABSTRACTION Provider, Abstract NO ADDRESS ON FILE Social History Tobacco Use Types Packs/Day Years Used Date Smoking Tobacco: Every Day Cigarettes Last attempted to quit: 03/02/2015 Smokeless Tobacco: Never Alcohol Use Standard Drinks/Week Comments No 0 (1 standard drink = 0.6 oz pur e alcohol) Feeling Safe Answer Date Recorded Within the last year, have y ou been afraid of your partner or ex-partner? Patient declined 06/12/2019 Within the last year, have y ou been humiliated or emotionally abused in other ways by your partner or ex-partner? Patient declined 06/12/2019 Within the last year, have y ou been kicked, hit, slapped, or otherwise physically hurt by your partner or ex-partner? Patient declined 06/12/2019 Within the last year, have y ou been raped or forced to have any kind of sexual activity by your partner or ex-partner? Patient declined 06/12/2019 Social Connections Answer Date Recorded In a typical week, how many times do you talk on the phone with family, friends, or neighbors? Patient declined 06/12/2019 How often do you get togethe r with friends or relatives? Patient declined 06/12/2019 How often do you attend sabianist or orthodoxy serv ices? Patient declined 06/12/2019 Do you belong to any clubs o r organizations such as sabianist groups, unions, fraternal or athletic groups, or school groups? Patient declined 06/12/2019 How often do you attend meet ings of the clubs or organizations you belong to? Patient declined 06/12/2019 Are you , , di vorced, , never , or living with a partner? Patient declined 06/12/2019 Financial Resource Strain Answer Date R ecorded How hard is it for you to pa y for the very basics like food, housing, medical care, and heating? Patient declined 06/12/2019 Food Insecurity Answer Date Recorded Within the past 12 months, y ou worried that your food would run out before you got the money to buy more. Patient declined Within the past 12 months, t he food you bought just didn't last and you didn't have money to get more. Patient declined Transportation Needs Answer Date Record ed In the past 12 months, has l ack of transportation kept you from medical appointments or from getting medications? Patient declined 06/12/2019 In the past 12 months, has l ack of transportation kept you from meetings, work, or from getting things needed for daily living? Patient declined 06/12/2019 Comments No Sex and Gender Information Value Date Recorded Sex Assigned at Not on file Legal Sex Female 11:21 AM CDT Gender Identity Not on file Sexual Orientation Not on file COVID-19 Exposure Response Date Recorded In the last month, have you been in contact with someone who was confirmed or suspected to have Coronavirus / COVID-19? No / Unsure 01/20/2020 5:36 AM CDT documented as of this encounter Plan of Treatment Not on file documented as of this encounter Visit Diagnoses Not on filedocumented in this encounter Additional Health Concerns Infection Onset Date Last Indicated Resolved Time R/O COVID-19 01/20/2020 01/20/2020 01/21/2020 1:15 PM CDT Assessment Noted Time PHQ-9 Depression Total Score: 4 03/21/20 17 11:00 AM CDT documented as of this encounter
--- OUTSIDE RECORDS SUMMARY | 2024-11-20 16:31 | XMS_ITS | Continuity of Care Document ---
Author Organization [facility] Address [address] [facility] [place] [address] Phone Care Team Providers Care Health Inspector Name Role Phone Unavailable Unavailable Unavailable Advance Directives Directive Yes / No Effective Date File Name No Information Encounters Encounter Description Practice Location Reason(s) For Visit Diagnoses Date Provider Providers Copied on Encounter [facility], [address], [place], [place], [id number], tel:[phone] [facility] OUTPATIENT No Information 6 No Information Referring Provider: RAYSA DOWLING, [address], [place], [address]. tel:[phone] Family History Family Member Type Diagnosis Age At Onset No Information Payers Payer name Insurance type Covered alliance party ID Authoriza tiusha(s) [facility] [id number] Social History Type Description Quantity Date Captured Comments Sex Female Smoking Status No Information Chief Complaint And Reason For Visit No Information History Of Present Illness Encounter Date Complaint History Of Prese nt Illness No Information Instructions Date Instruction Additional Infor mation No Information Assessments Type Assessment Date No Information
--- OUTSIDE RECORDS SUMMARY | 2024-11-20 16:31 | XMS_ITS | Encounter Summary ---
Author Organization [facility] Address [address] [place] [address] Care Team Providers Care Delivery Motorcycle Driver Name Role Phone Chidi Slaughter DO Primary Care Provider Un available Encounter Details Date Type Department Care Team (Late st Contact Info) Description 12/31/2015 Nurse Triage Report [facility] ABSTRACTION Michell Wolff, RN Social History Tobacco Use Types Packs/Day Years Used Date Smoking Tobacco: Former E-Cigarette/Mist Inhalation Device Quit: 03/02/2015 Alcohol Use Standard Drinks/Week Comments No 0 (1 standard drink = 0.6 oz pur e alcohol) Comments Yes Sex and Gender Information Value Date Recorded Sex Assigned at Not on file Legal Sex Female 11:21 AM CDT Gender Identity Not on file Sexual Orientation Not on file documented as of this encounter Progress Notes * Michell Wolff, RN - 12/31/2015 7:50 PM CDT CHART DOCUMENTATION ONLY Call Type: Triage Call Addendum Date and Time [id number] Presenting Problem: I'm 18 weeks and I need my Clonazepam refilled. Report feedback to Dr. Ivone Emmanuel <<<<<<<< TRIAGE NOTE >>>>>>>> Triage Note: Consulting Project Director Michell Wolff added this note on Dec 31 2015 6:53PM: Pt states she is now 18 weeks . States she needs her clonazepam refilled. States she used the med with her 1yo daughter and all went well. She is out of the med this evening but will try to make it through until tomorrow to get her script from the office. Please contact pt about the script. Consulting Project Director [email or web address] added this note on Dec 31 2015 7:50PM Pt called me back and had gone to the Urgent Care this evening afterall. Pt is in tears on the phone. She states the person at the desk told her that the medication was not good for her baby and that she shouldn't be asking for it. She also said that they were not a pharmacy. Pt just wanted me to know how badly she was treated at the [facility] near her [place] office in [place]. Support was given. <<<<<<<< TRIAGE/OUTCOME >>>>>>>> Guideline Title: Medication Questions - Adult Recommended Disposition: Speak with Provider or Pharmacist within 24 hours Original Inclination: Call Provider/See in 24 Intended Action: Call or See Provider within 24 hrs Physician Contacted: No Has questions about prescribed and/or nonprescribed medications not covered by available resources ? YES documented in this encounter Plan of Treatment Not on file documented as of this encounter Visit Diagnoses Not on filedocumented in this encounter Additional Health Concerns Infection Onset Date Last Indicated Resolved Time R/O COVID-19 01/20/2020 01/20/2020 01/21/2020 1:15 PM CDT documented as of this encounter Care Teams Delivery Motorcycle Driver Relationship Specialty Start Date End Date Chidi Slaughter DO PCP - General Internal Medicine 09/21/19 10/24/19 documented as of this encounter
--- OUTSIDE RECORDS SUMMARY | 2024-11-20 16:31 | XMS_ITS | Encounter Summary ---
Author Organization [facility] Address [address] [place] [address] Care Team Providers Care Pesticide Chemist Name Role Phone Unavailable Primary Care Provider Unavailabl e Encounter Details Date Type Department Care Team (Late st Contact Info) Description 01/21/2020 Digital Self COVID-1 9 Screening [facility] ABSTRACTION Provider, Abstract NO ADDRESS ON [...] declined 06/12/2019 How often do you attend religious or christian serv ices? Patient declined 06/12/2019 Do you belong to any clubs o r organizations such as religious groups, unions, fraternal or athletic groups, or [...]
--- OUTSIDE RECORDS SUMMARY | 2024-11-20 16:31 | XMS_ITS | Encounter Summary ---
Author Organization [facility] Address [address] [place] [address] Care Team Providers Care Lithographic Photographer Apprentice Name Role Phone Unavailable Primary Care Provider [...] declined 06/12/2019 How often do you attend jain or church serv ices? Patient declined 06/12/2019 Do you belong to any clubs o r organizations such as jain groups, unions, fraternal or athletic groups, or [...]
--- OUTSIDE RECORDS SUMMARY | 2024-11-20 16:31 | XMS_ITS | Encounter Summary ---
Author Organization [email or web address] [facility] Address [address] [place] [address] Care Team Providers Care Front End Developer Name Role Phone Sukhjinder Chidi Balaji DO Primary Care Provider Un available Encounter Details Date Type Department Care Team (Late st Contact Info) Description 12/31/2015 Nurse Triage Report [facility] ABSTRACTION Sima You, RN Social History Tobacco Use Types Packs/Day [...] as of this encounter Progress Notes * Sima You RN - 12/31/2015 6:08 PM CDT CHART DOCUMENTATION ONLY Call Type: Triage Call Presenting Problem: I'm 18 weeks and I need my clonazepam refilled. (Pt. is currently not having any symptoms) Report feedback to Dr. Ivone Emmanuel <<<<<<<< TRIAGE NOTE >>>>>>>> <<<<<<<< TRIAGE/OUTCOME >>>>>>>> Guideline Title: Communication Management Workflow Process Guide (Adult) Recommended Disposition: No Contact Physician Contacted: No Message left on answering machine or voice mail with personal identification. ? YES documented in this encounter Plan of Treatment Not on file documented as of this encounter Visit Diagnoses Not on filedocumented in this encounter Additional Health Concerns Infection Onset Date Last Indicated Resolved Time R/O COVID-19 01/20/2020 01/20/2020 01/21/2020 1:15 PM CDT documented as of this encounter Care Teams Front End Developer Relationship Specialty Start Date End Date Chidi Slaughter DO PCP - General Internal Medicine 09/21/19 10/24/19 documented as of this encounter
--- OUTSIDE RECORDS SUMMARY | 2024-11-20 16:31 | XMS_ITS | Encounter Summary ---
Author Organization [facility] Address [address] [place] [address] Care Team Providers Care Sizing Machine Tender Name Role Phone Unavailable Primary Care Provider Unavailabl e Encounter Details Date Type Department Care Team (Late st Contact Info) Description 01/19/2020 Digital Self COVID-1 9 Screening [facility] ABSTRACTION [...] declined 06/12/2019 How often do you attend yarsanism or confucianism serv ices? Patient declined 06/12/2019 Do you belong to any clubs o r organizations such as yarsanism groups, unions, fraternal or athletic groups, or [...]
--- OUTSIDE RECORDS SUMMARY | 2024-11-20 16:32 | XMS_ITS | Referral Summary ---
Author Organization [facility] Virtual Care Address [address] [place] [address] Phone Care Team Providers Care Personal Health Coach Name Role Phone No, Physician Primary Care Provider [phone] Sarika oMrrissey MD Unavailable [phone] Encounters Date Type Department Care Team Description 11/06/2024 7:49 PM MEDICINAL CHEMIST - 11/06/2024 9:18 PM [facility] Emergency [facility] OB Emergency Department [facility] [place] [address] Rob Abdul MD Pelvic pain affecting in third trimester, antepartum (Primary Dx); 35 weeks gestation of Discharge Disposition: Discharge to home or self care from Last 3 Months Allergies Active Allergy Reactions Criticality Noted Date Comments Prochlorperazine Mental status changes Low 12/09/19 21 Medications vit 53-bzmv-fyjyo-dha 27mg iron- 800 mcg-250 mg capsule Take [...] time in the past [address] [facility], were you homeless or living in a assisted (including now)? No 11/06/2024 Personal Safety Answer [...] on file Legal Sex Female 9:12 PM MEDICINAL CHEMIST Gender Identity Not on file Sexual Orientation Not on file Last Filed Vital Signs Vital Sign Reading Time Taken Comments Blood Pressure 122/74 11/06/2024 8:05 PM MEDICINAL CHEMIST Pulse 113 11/06/2024 8:05 PM MEDICINAL CHEMIST Temperature 36.7 ??C (98.1 ??F) 11/06/2024 8:05 PM CS T Respiratory Rate 18 11/06/2024 8:05 PM MEDICINAL CHEMIST Oxygen Saturation 100% 11/06/2024 8:05 PM MEDICINAL CHEMIST Inhaled Oxygen Concentration - - Weight 69.9 kg (154 lb) 11/06/2024 8:28 PM MEDICINAL CHEMIST Height 162.6 cm (5' 4 ) 11/06/2024 8:28 PM MEDICINAL CHEMIST Body Mass Index 26.43 11/06/2024 8:28 PM MEDICINAL CHEMIST Plan of Treatment Not on file Procedures Procedure Name Priority Date/Time Associated Diagnosis Comments URINALYSIS AND REFLEX TO MICROSCOPIC AND CULTURE STAT 11/06/2024 8:31 PM MEDICINAL CHEMIST from Last 3 Months Results * Urinalysis reflex to microscopic and culture Urine (11/06/2024 8:31 PM MEDICINAL CHEMIST) Color, ur Straw Yellow Comment:Testing performed by : [address] [address] Clarity, ur Clear Clear RU Comment:Testing performed by : [address] [address] Specific gravity, ur 1.005 1.003 - 1.030 RU Comment:Testing performed by : [address] [address] pH, urine 6.5 RU Comment: Interpretive Data ? Urine pH is affected by diet, medications, systemic acid-base disturbances, and renal tubular function. ??pH may affect urinary stone formation. ??For example, urine pH below 6.0 may help reduce the tendency for calcium phosphate stones and pH greater than 6.0 may reduce the tendency for uric acid stone formation. Source: [facility] [employer] Current Interpretive Data was last revised on 2017 Testing performed by: [facility], [address] [place] [address]., [address] Protein, ur ql Negative Negative RU Comment:Testing performed by : [address] [address] Glucose, ur ql Negative Negative RU Comment:Testing performed by : [address], [place]., [address] Ketones, ur Negative Negative RU Comment:Testing performed by : [address], [place]., [address] Bilirubin, ur Negative Negative RU Comment:Testing performed by : [address] [address] Blood, ur Negative Negative RU Comment:Testing performed by : [address], [place]., [address] Urobilinogen, ur <2.0 <2.0 mg/dL RU Comment:Testing performed by : [address] [address] Nitrite, ur Negative Negative RU Comment:Testing performed by : [address] [address] Leukocyte esterase, ur Negative Negative RU Comment:Testing performed by : [address] [address] UA reflex comment Reflex conditions for microscopic UA and culture not met. RU Comment:Testing performed by : [address] [address] Urine 11/06/2024 8:31 PM MEDICINAL CHEMIST 11/06/2024 8:33 PM MEDICINAL CHEMIST us Dennis Wolff MD LAB MICROBIOLOGY - GENERAL ORDERABLES Final Result RU [id number] [facility] [place] [address] from Last 3 Months Insurance [facility] Care Teams Personal Health Coach Relationship Specialty Start Date End Date No, Physician PCP - General 05/20/21 Sarika Morrissey MD [address] [place] [phone] 12/09/20
--- OUTSIDE RECORDS SUMMARY | 2024-11-20 16:32 | XMS_ITS | Clinical Summary ---
Author Organization [facility] Virtual Care Address [address] [place] [phone] Phone Care Team Providers Care Manager Financial Name Role Phone No, Physician Primary Care Provider Sarika Morrissey MD Unavailable [phone] Allergies Active Allergy Reactions Criticality Noted Date Comments Prochlorperazine Mental status changes Low 12/09/19 21 Medications vit 32-oydn-sdbbr-dha 27mg iron- 800 mcg-250 mg capsule Take [...] Department Care Team Description 11/06/2024 7:49 PM CASE MANAGER - 11/06/2024 9:18 PM CASE MANAGER Emergency [facility] OB Emergency Department [address] [place] [address] Rob Abdul MD Pelvic pain affecting in third trimester, antepartum (Primary Dx); 35 weeks gestation of Discharge Disposition: Discharge to home or self care from Last 3 Months Surgical History Surgery Date Site/Laterality Comments INDUCED UPPER GASTROINTESTINAL ENDOSCOPY SECTION Medical History Medical History Date Comments Meningitis Crohn's colitis (CMS/HCC) (HCC) Anxiety Yanique-Danlos syndrome Crohn's disease (CMS/HCC) ([facility]) Adhd Social History Tobacco Use Types Packs/Day [...] any time in the past 12 m [facility], were you homeless or living in a care home (including now)? No 11/06/2024 Personal Safety Answer [...] on file Legal Sex Female 9:12 PM CASE MANAGER Gender Identity Not on file Sexual [...] Estimated Date of Delivery 11/06/2024 - Present (11/20/2024) 12/09/2024 (set by Marita Trimble, RN on 11/06/2024 based on Patient Reported) Dating Summary Based On DOMENICA [place] Diff Patient Reported 12/09/2024 Working Vitals Pregravid Weight Height TWG (As of 11/20/2024) Pregrav id BMI 162.6 cm (5' 4 ) Date GA Fund Present FHR Mvmt BP Weight Edema Alb Glu Ket Dil/ Eff/Sta 5 35w2d Inpatient data not displayed here. See encounter summary. Last Filed Vital Signs Vital Sign Reading Time Taken Comments Blood Pressure 122/74 11/06/2024 8:05 PM CASE MANAGER Pulse 113 11/06/2024 8:05 PM CASE MANAGER Temperature 36.7 ??C (98.1 ??F) 11/06/2024 8:05 PM CS T Respiratory Rate 18 11/06/2024 8:05 PM CASE MANAGER Oxygen Saturation 100% 11/06/2024 8:05 PM CASE MANAGER Inhaled Oxygen Concentration - - Weight 69.9 kg (154 lb) 11/06/2024 8:28 PM CASE MANAGER Height 162.6 cm (5' 4 ) 11/06/2024 8:28 PM CASE MANAGER Body Mass Index 26.43 11/06/2024 8:28 PM CASE MANAGER Plan of Treatment Health Maintenance Due [...] MICROSCOPIC AND CULTURE STAT 11/06/2024 8:31 PM CASE MANAGER from Last 3 Months Results * Urinalysis reflex to microscopic and culture Urine (11/06/2024 8:31 PM CASE MANAGER) Color, ur Straw Yellow Comment:Testing performed by : [address] [address] Clarity, ur Clear Clear RU Comment:Testing performed by : [address] [address] Specific gravity, ur 1.005 1.003 - 1.030 RU Comment:Testing performed by : [address] [address] pH, urine 6.5 RU Comment: Interpretive Data ? Urine pH is affected by diet, medications, systemic acid-base disturbances, and renal tubular function. ??pH may affect urinary stone formation. ??For example, urine pH below 6.0 may help reduce the tendency for calcium phosphate stones and pH greater than 6.0 may reduce the tendency for uric acid stone formation. Source: [facility] [employer] Current Interpretive Data was last revised on 2017 Testing performed by: [facility], [address] [place] [address], [place]., [address] Protein, ur ql Negative Negative RU Comment:Testing performed by : [facility], [address] [place] [address], [place]., [address] Glucose, ur ql Negative Negative RU Comment:Testing performed by : [address], [place]., [address] Ketones, ur Negative Negative RU Comment:Testing performed by : [address], [place]., [address] Bilirubin, ur Negative Negative RU Comment:Testing performed by : [address], [place]., [address] Blood, ur Negative Negative RU Comment:Testing performed by : [address], [place]., [address] Urobilinogen, ur <2.0 <2.0 mg/dL RU Comment:Testing performed by : [address], [place]., [address] Nitrite, ur Negative Negative RU Comment:Testing performed by : [address], [place]., [address] Leukocyte esterase, ur Negative Negative RU Comment:Testing performed by : [address], [place]., [address] UA reflex comment Reflex conditions for microscopic UA and culture not met. RU Comment:Testing performed by : [address] [address] Urine 11/06/2024 8:31 PM CASE MANAGER 11/06/2024 8:33 PM CASE MANAGER us Dennis Wolff MD LAB MICROBIOLOGY - GENERAL ORDERABLES Final Result RU SOTO [address] [facility] Department [place] [address] from Last 3 Months Insurance [facility] Care Teams Manager Financial Relationship Specialty Start Date End Date No, Physician PCP - General 05/20/21 Sarika Morrissey MD [address] [place] [phone] 12/09/20
--- OUTSIDE RECORDS SUMMARY | 2024-11-20 16:32 | XMS_ITS | Continuity of Care Document ---
Author Organization [facility] Address [address] [place] [address] Phone Care Team Providers Care Knifeman Name Role Phone No Information Unavailable Unavailable Medications Medication Instructions Dosage Effective Dates (start - stop) Status Comments No Drug Therapy Prescribed Advance Directives Directive Yes / No Effective Date File Name No Information Encounters Encounter Description Practice Location Reason(s) For Visit Diagnoses Date Provider Providers Copied on Encounter [facility], [address] [place] [address], [facility], [place] tel:[phone] No Information No Information Family History Family [...]
--- OUTSIDE RECORDS SUMMARY | 2024-11-20 16:33 | XMS_ITS | Referral Summary ---
Author Organization [facility] Address [address] [place] [address] Care Team Providers Care Spinning Mule Tender Name Role Phone Unavailable Primary Care Provider Unavailabl e Source Comments [facility],non-owned Affiliates and Associated Physician Practices is amultiple site organization consisting of ambulatory clinics and hospital sitesin [place], [place], [place] and [place]. This disclosure is being madepursuant to the Care Everywhere program and may not contain all information available regarding this patient. Last updated 18.[facility] [place] Allergies Active Allergy Reactions Criticality Noted Date [...] CDT Oxygen Saturation 96% 09/30/2019 1:20 AM EGG AND SPICE MIXER Inhaled Oxygen Concentration - - Weight 49.9 [...] if suspicious findings are present clinically. An [employer] certified facility. [facility] utilize [employer] [facility] as a reminder system to notify patients [...]
--- OUTSIDE RECORDS SUMMARY | 2024-11-20 16:33 | XMS_ITS | Clinical Summary ---
Author Organization [facility] [employer] Address [address] [place] [address] Care Team Providers Care Digital Experience Manager Name Role Phone Unavailable Primary Care Provider Unavailabl e Source Comments [facility],non-owned Affiliates and Associated Physician Practices is amultiple site organization consisting of ambulatory clinics and hospital sitesin [place], [place], [place] and [place]. This disclosure is being madepursuant to the Care Everywhere program and may not contain all information available regarding this patient. Last updated 18.[facility] [employer] Allergies Active Allergy Reactions Criticality Noted Date [...] CDT Oxygen Saturation 96% 09/30/2019 1:20 AM [employer] Inhaled Oxygen Concentration - - Weight 49.9 [...] if suspicious findings are present clinically. An [employer] certified facility. [facility] utilize [employer] as a reminder system to notify patients of their next recommended mammograms. Edited by Steff Gonzalez on 04/09/2020 2:52 PM *Reading Radiologist: Zhou Nicholas on 04/09/2020 at 2:58 PM Kandi Zavala DO MAMMO ORDERABLES from Last 3 Months or Most Recently Relevant to Health Maintenance Advance Directives * Full Code (Latest Code Status on File) Date Activated Date Inactivated Comments 06/24/2015 10:34 PM 06/25/2015 12:17 AM
--- OUTSIDE RECORDS SUMMARY | 2024-11-20 16:33 | XMS_ITS | Clinical Summary ---
Author Organization [facility] Address [address] [place] [phone] Phone Care Team Providers Care Highway Maintenance Technician Name Role Phone Unavailable Primary Care Provider Unavailabl e Allergies Active Allergy Reactions Criticality Noted Date Comments Prochlorperazine Anxiety Low 03/26/2021 Medications clonazePAM (KlonoPIN) 0.5 mg TabletIndication s:Generalized anxiety disorder Take 1 Tablet (0.5 mg) by mouth 2 times daily. 10 Tablet 06/24/20 20 Active PNV Comb #3-[id number]-RK-[place] 3 29-1-400 mg Combo Pack Take 1 Tablet by mouth daily. 30 Each 8 10/03/20 20 Active doxepin (SINEquan) 25 mg capsule Take 25 mg by mouth daily at bedtime. 12/20/19 21 Active oxyCODONE-acetam inophen (PERCOCET) 5-325 mg tabletIndication s:Exacerbation of Crohn's disease without complication (CMS/HCC) Take 1 Tablet by mouth every 4 hours as needed for Pain, Moderate. Max Daily Amount: 6 Tablets 9 Tablet 03/16/20 22 Active hydrOXYzine HCL (ATARAX) 50 mg tablet Take 25 mg by mouth 3 times daily as needed for Itching. Active oxyCODONE-acetam inophen (PERCOCET) 5-325 mg tabletIndication s:Acute pain of right knee Take 1 Tablet by mouth every 4 hours as needed for Pain, Moderate. Max Daily Amount: 6 Tablets 20 Tablet 04/22/20 22 Active ondansetron (ZOFRAN ODT) 4 mg Tablet, Rapid Dissolve Take 1 Tablet (4 mg) by mouth every 8 hours as needed for Nausea/Emesis. Dissolve tablet on top of tongue, then swallow with saliva. 15 Tablet 04/22/20 22 Active naloxone (NARCAN) 4 mg/spray [place], Non-Aerosol EMERGENCY USE ONLY: Administer 1 spray (4 mg) in one nostril one time. May repeat in alternating nostrils every 2-3 min until responsive or EMS arrives. 2 Each 3 04/22/20 22 Active cyclobenzaprine (FLEXERIL) 10 mg tablet Take 1 Tablet (10 mg) by mouth 3 times daily as needed for Spasm. 21 Tablet 07/27/20 22 Active valACYclovir (Valtrex) 500 mg tablet Take 1 Tablet (500 mg) by mouth daily. 30 Tablet 11/15/2024 4:08 PM CLAIMS SUPPORT SPECIALIST 11/13/19 25 Active amphetamine-dext roamphetamine (ADDERALL XR) 20 mg Extended Release 24 hour capsule Take 1 Capsule (20 mg) by mouth daily. 30 Capsule 11/19/2024 5:24 PM CLAIMS SUPPORT SPECIALIST 11/19/19 25 Active amphetamine-dext roamphetamine (Adderall XR) 20 mg Extended Release 24 hour capsule Take 2 Capsules (40 mg) by mouth daily. 60 Capsule 11/13/19 25 025 Discontin ued(Dose/ form adjustmen t) Active Problems Problem Noted Date Diagnosed Date Tobacco use 12/10/2020 History of herpes genitalis 12/31/2017 Generalized anxiety disorder 04/18/2016 Overview (04/18/2016): On Klonipin from PCP. Category C/D, not indicated in . withdrawal and depression Chronic anemia 04/18/2016 Abdominal pain Comments Yes Resolved Problems Problem Noted Date Diagnosed Date Resolved Date Normal labor 05/02/2016 12/31/2017 Threatened premature labor in third trimester 04/26/20 16 05/02/2016 Encounter for medication refill 04/18/2016 12/31/2017 uterine contractions in third trimester, antepartum 04/12/2016 05/02/2016 Uterine irritability 04/07/2016 018 Supervision of normal pregna ncy in first trimester 11/14/2015 12/31/2017 History of miscarriage, currently 11/14/2015 12/31/2017 Encounters Date Type Department Care Team Description 11/08/2024 External Device Data STL ABSTRACTION Provider, Abstract 11/01/2024 3:00 PM CLAIMS SUPPORT SPECIALIST - 11/01/2024 11:59 PM CLAIMS SUPPORT SPECIALIST Hospital Encounter [facility] Graciela Oh [address] [place] [phone] Nikki Mckeon MD Discharge Disposition: Home or Self Care 10/30/2024 External Device Data STL ABSTRACTION Provider, Abstract 10/18/2024 3:00 PM CLAIMS SUPPORT SPECIALIST - 10/18/2024 11:59 PM CLAIMS SUPPORT SPECIALIST Hospital Encounter [facility] Graciela Oh [address] [place] [phone] Odell Bennett MD Discharge Disposition: Home or Self Care 09/20/2024 1:45 PM CLAIMS SUPPORT SPECIALIST - 09/20/2024 11:59 PM CLAIMS SUPPORT SPECIALIST Hospital Encounter [facility] Graciela Oh [address] [place] [phone] Odell Bennett MD Discharge Disposition: Home or Self Care 09/06/2024 10:00 AM CLAIMS SUPPORT SPECIALIST - 09/06/2024 11:59 PM CLAIMS SUPPORT SPECIALIST Hospital Encounter [facility] Graciela Oh [address] [place] [phone] Nikki Mckeon MD Discharge Disposition: Home or Self Care from Last 3 Months Family History Medical History Relation Name Comments Healthy Daughter 1 Healthy Daughter 2 Healthy Father Breast Cancer Maternal Aunt Anxiety Mother Relation Name Status Comments Daughter 1 Alive Daughter 2 Alive Father Alive Maternal Aunt Mother Alive Social History Tobacco Use Types Packs/Day Years [...] declined 06/12/2019 How often do you attend rastafari or spiritism serv ices? Patient declined 06/12/2019 Do you belong to any clubs o r organizations such as rastafari groups, unions, fraternal or athletic groups, or [...] like food, housing, medical care, and heating? Very hard 04/26/2022 Food Insecurity Answer Date Recorded In the past 12 months, have you worried that your food would run out before you had money to buy more? Sometimes true 2021 In the past 12 months, did y ou run out of food and didn't have money to buy more? Never true 04/26/2022 Transportation Needs Answer Date Record ed In the past 12 months, has l ack of transportation kept you from medical appointments or from getting medications? No 04/16 In the past 12 months, has l ack of transportation kept you from meetings, work, or from getting things needed for daily living? No 04/26/2022 Housing Stability Answer Date Recorded In the last 12 months, was t here a time when you were not able to pay the mortgage or rent on time? Yes 04/26/2022 (RETIRED) In the last 12 months, how many places have you lived? 1 04/26/2022 (RETIRED) In the last 12 tue, was there a time when you did not have a steady place to sleep or slept in a nursing home (including now)? No 04/26/2022 Feeling Safe Answer Date Recorded Are you in a relationship wi th someone who hurts you emotionally and/or physically? No 04/03/2023 Comments Yes Sex and Gender Information Value Date Recorded Sex Assigned at Not on file Legal Sex Female 11:21 AM CDT Gender Identity Not on file Sexual Orientation Not on file Last Filed Vital Signs Vital Sign Reading Time Taken Comments Blood Pressure 101/65 04/03/2023 10:47 AM CDT Pulse 82 04/03/2023 10:47 AM CDT Temperature 36.2 ??C (97.1 ??F) 04/03/2023 5:02 AM CD T Respiratory Rate 20 04/03/2023 5:02 AM CDT Oxygen Saturation 100% 04/03/2023 10:47 AM CDT Inhaled Oxygen Concentration - - Weight 48.5 kg (107 lb) 07/27/2022 8:03 PM CDT Height 152.4 cm (5') 07/27/2022 8:03 PM CDT Body Mass Index 20.9 07/27/2022 8:03 PM CDT Plan of Treatment Health Maintenance Due Date Last Done Comments DTAP/TDAP/TD VACCINES (1 - Tdap) 2001 HEPATITIS B VACCINES (1 of 3 - 19+ 3-dose series) 2001 Preventative Visit-Managed Medicaid 10/08/2016 10/07/2015 CERVICAL CANCER SCREENING 10/07/20182014, 09/02/2014 (Previously completed) BREAST CANCER SCREENING 2022 04/15/20 20, 04/09/2020, 02/02/2019 INFLUENZA VACCINE (#1) 2024 RSV VACCINE (60+ or ) (1 - 1-dose 75+ series) 2057 HPV VACCINES Aged Out No longer eligi ble based on patient's age to complete this topic Procedures Procedure Name Priority Date/Time Associated Diagnosis Comments US OB FOLLOW UP PER FETUS Routine 11/01/2024 3:42 PM CLAIMS SUPPORT SPECIALIST Advanced maternal age in multigravida, third trimester History of delivery, currently Adderall use disorder, moderate (CMS/HCC) US OB FOLLOW UP PER FETUS Routine 10/18/2024 3:43 PM CLAIMS SUPPORT SPECIALIST Advanced maternal age in multigravida, third trimester History of delivery, currently Adderall use disorder, moderate (CMS/HCC) US OB FOLLOW UP PER FETUS Routine 09/20/2024 2:30 PM CLAIMS SUPPORT SPECIALIST Multigravida of advanced maternal age in second trimester Crohn's disease of colon with complication (CMS/HCC) Adderall use disorder, moderate (CMS/HCC) US OB FOLLOW UP + TV Routine 09/06/2024 10:40 AM CLAIMS SUPPORT SPECIALIST AMA (advanced maternal age) multigravida 35+, second trimester Placenta previa in second trimester CERV/VAG CYTO SCREEN PAP W/HPV Routine 10/07/2015 3:25 PM CLAIMS SUPPORT SPECIALIST Amenorrhea Positive blood test Screen for STD (sexually transmitted disease) Well woman exam with routine gynecological exam Screening for human papillomavirus from Last 3 Months or Most Recently Relevant to Health Maintenance Results * US OB FOLLOW UP PER FETUS (11/01/2024 3:42 PM CLAIMS SUPPORT SPECIALIST) Only the most recent of3 resultswithin the time period is included. Anatomical Region Laterality Modality Pelvis Ultrasound 11/01/2024 3:17 PM CLAIMS SUPPORT SPECIALIST Narrative 11/02/2024 8:15 AM CLAIMS SUPPORT SPECIALIST STL FOLLOW UP ----- Pat. Name: JEANINE OSORIO Study Date: 11/01/2024 3:17pm Pat. NO: [id number] Referring ??MD: SAMAN VACA MD Site: [facility] Officer: Stacie Pro RDMS : 1980 Age: 44 ----- INDICATION ----- Screening Follow-Up Exposure to Medications / Drugs, Suspected Damage to Fetus Advanced Maternal Age (AMA), Multigravida Recurrent Loss Crohn?s Disease History of PTL/PTD in Previous , Currently CODING ----- Diagnoses ? Z3A.34: Weeks of gestation ?O09.213: Supervision of with history of pre-term labor ?K50.90: Crohn's disease, unspecified, without complications ?N96: Recurrent loss ?O09.523: Supervision of elderly multigravida ?O35.5XX0: Maternal care for (suspected) damage to fetus by drugs ?Z36.3: Encounter for screening for malformations ?Z36.2: Encounter for other screening follow-up Procedures ?55341: Ultrasound, uterus, real time with image documentation, follow up, transabdominal ?approach per fetus HISTORY ----- OB History ? 8. Para 3 ?[id number] ?History of Two Vessel Cord and delivery Medication ?Klonopin: 0.5mg METHOD ----- Transabdominal ultrasound examination ----- Cervantes . Number of fetuses: 1 DATING ----- GA by prior assessment 34 w + 4 d DOMENICA by prior assessment: 12/09/2024 Ultrasound examination on: 11/01/2024 GA by U/S based upon: AC, BPD, EFW, Femur, HC GA by U/S 33 w + 5 d DOMENICA by U/S: 12/15/2024 Method of dating: Restore dating from previous exam Assigned: based on stated DOMENICA, selected on 08/02/2024 Assigned GA 34 w + 4 d Assigned DOMENICA: 12/09/2024 BIOMETRY ----- BPD ?83.7 ? mm ?33w 5d ?25% ?Hadlock OFD ?107.8 ?mm ?35w 4d ?73% ?Ricardo HC ? 306.0 ?mm ?34w 1d ?9% ?Hadlock AC ? 297.0 ?mm ?33w 5d ?29% ?Hadlock Femur ?64.7 ? mm ?33w 3d ?14% ?Hadlock HC / AC ?1.03 ? 46% ?Nicolaides Weight Calculation: EFW ? 2,241 ? g ? 33w 3d ?22% ?Hadlock EFW (lb,oz) ? 4 lb 15 ? oz EFW by ?Hadlock ([id number]) Extremities / Bony Struc Biometry: FL / BPD ?0.77 FL / HC ? 0.21 FL / AC ? 0.22 GENERAL EVALUATION ----- Cardiac activity present. FHR 149 bpm. movements: present. Presentation: cephalic Placenta: Placental site: posterior Umbilical cord: Cord vessels: 3 vessel cord. Amniotic fluid: Amount of AF: normal amount. MVP 4.9 cm. GERALDINE 18.9 cm. Q1 4.9 cm, Q2 4.5 cm, Q3 4.7 cm, Q4 4.7 cm ANATOMY ----- The following structures appear normal: Head / Neck ? Cranium. Cavum septi pellucidi. Heart / Thorax ?RVOT view. LVOT view. ?Diaphragm. Abdomen ? Stomach. Kidneys. Bladder. GROWTH OVERVIEW ----- Exam date ? GA ?BPD (mm) ? HC (mm) ?AC (mm) ? FL (mm) ?HL (mm) ?EFW (g) 08/02/2024 ?21w 4d ?48.9 ?19% ?183.8 ? 11% ?167.2 ?48% ?33.4 ?10% ?32.8 ?29% ?400 ? 22% 09/06/2024 ?26w 4d ?64.1 ?19% ?237.6 ? 8% ? 213.7 ?21% ?46.6 ?11% ? 847 ? 13% 09/20/2024 ? 28w 4d ?69.0 ?15% ?264.8 ? 25% ?237.4 ?27% ?52.2 ?16% ? 1,163 ? 20% 10/18/2024 ? 32w 4d ?80.2 ?31% ?293.6 ? 12% ?278.1 ?29% ?57.3 ?1% ? 1,756 ? 13% 11/01/2024 ?34w 4d ?83.7 ?25% ?306.0 ? 9% ? 297.0 ?29% ?64.7 ?14% ? 2,241 ? 22% COMMENT ----- Patient's name and date of were verified by the casing crew pusher prior to the exam IMPRESSION ----- 1. Single living fetus with a gestational age of 34w 4d, based on the reported clinical dates. 2. Current growth parameters are consistent with the stated EDC. The size is appropriate for gestational age at 22% percentile (2241 g). 3. Unremarkable limited anatomy noted. A detailed anatomy cannot be performed secondary to advanced gestational age. However, there are no gross structural abnormalities noted. 4. The amniotic fluid is normal for gestational age (MVP:4.9 cm , GERALDINE:18.9 cm ). 5. posterior placenta. No previa/not low-lying. 6. cephalic presentation. Recommendations: -Follow up growth sonograms at 4 week intervals Thank you for allowing us to participate in the care of this patient. ADDENDUM ----- Re-trigger Procedure Note Bassem Laws MD - 11/08/2024 STL FOLLOW UP ----- Pat. Name:Kenan OSORIO Date:11/01/2024 3:17pm Pat. NO: [id number] MD:SAMAN VACA [facility] Pro RDMS :1980Age:44 ----- INDICATION ----- Screening Follow-Up Exposure to Medications / Drugs, Suspected Damage to Fetus Advanced Maternal Age (AMA), Multigravida Recurrent Loss Crohn?s Disease History of PTL/PTD in Previous , Currently CODING ----- Diagnoses Z3A.34: Weeks of gestation O09.213: Supervision of with history ofpre-term labor K50.90: Crohn's disease, unspecified, withoutcomplications N96: Recurrent loss O09.523: Supervision of elderly multigravida O35.5XX0: Maternal care for (suspected) damage tofetus by drugs Z36.3: Encounter for screening formalformations Z36.2: Encounter for other screeningfollow-up Procedures [id number]: Ultrasound, uterus, real time withimage documentation, follow up, transabdominal approach per fetus HISTORY ----- OB History 8. Para 3 [id number] History of Two Vessel Cord and delivery Medication Klonopin: 0.5mg METHOD ----- Transabdominal ultrasound examination ----- Cervantes . Number of fetuses: 1 DATING ----- GA by prior [id number] w + 4 d DOMENICA by prior assessment:12/09/2024 Ultrasound examination on:11/01/2024 GA by U/S based upon:AC, BPD, EFW, Femur, HC GA by U/S33 w + 5 d DOMENICA by U/S:12/15/2024 Method of dating:Restore dating from previous exam Assigned:based on stated DOMENICA, selected on 08/02/2024 Assigned GA34 w + 4 d Assigned DOMENICA:12/09/2024 BIOMETRY ----- BPD 83.7 mm 33w 5d 25%Hadlock OFD 107.8 mm 35w 4d 73%Ricardo HC 306.0 mm 34w 1d 9%Hadlock AC 297.0 mm 33w 5d 29%Hadlock Femur 64.7 mm 33w 3d 14%Hadlock HC / AC 1.03 46%Nicolaides Weight Calculation: EFW 2,241 g 33w 3d22% Hadlock EFW (lb,oz) 4 lb 15 oz EFW by Hadlock ([id number]) Extremities / Bony Struc Biometry: FL / BPD 0.77 FL / HC 0.21 FL / AC 0.22 GENERAL EVALUATION ----- Cardiac activity present. FHR 149 bpm. movements: present.Presentation: cephalic Placenta: Placental site: posterior Umbilical cord: Cord vessels: 3 vessel cord. Amniotic fluid: Amount of AF: normal amount. MVP 4.9 cm. GERALDINE 18.9 cm. Q14.9 cm, Q2 4.5 cm, Q3 4.7 cm, Q4 4.7 cm ANATOMY ----- The following structures appear normal: Head / Neck Cranium. Cavum septi pellucidi. Heart / Thorax RVOT view. LVOT view. Diaphragm. Abdomen Stomach. Kidneys. Bladder. GROWTH OVERVIEW ----- Exam date GA BPD (mm) HC (mm) AC (mm) FL(mm) HL (mm) EFW (g) 08/02/2024 21w 4d 48.9 19% 183.8 11% 167.2 48%33.4 10% 32.8 29% 400 22% 09/06/2024 26w 4d 64.1 19% 237.6 8% 213.7 21%46.6 11% 847 13% 09/20/2024 28w 4d 69.0 15% 264.8 25% 237.4 27%52.2 16% 1,163 20% 10/18/2024 32w 4d 80.2 31% 293.6 12% 278.1 29%57.3 1% 1,756 13% 11/01/2024 34w 4d 83.7 25% 306.0 9% 297.0 29%64.7 14% 2,241 22% COMMENT ----- Patient's name and date of were verified by the casing crew pusher prior tothe exam IMPRESSION ----- 1. Single living fetus with a gestational age of 34w 4d, based on thereported clinical dates. 2. Current growth parameters are consistent with the stated EDC. The fetalsize is appropriate for gestational age at 22% percentile (2241 g). 3. Unremarkable limited anatomy noted. A detailed anatomycannot be performed secondary to advanced gestational age. However, there are no gross structural abnormalities noted. 4. The amniotic fluid is normal for gestational age (MVP:4.9 cm , GERALDINE:18.9cm ). 5. posterior placenta. No previa/not low-lying. 6. cephalic presentation. Recommendations: -Follow up growth sonograms at 4 week intervals Thank you for allowing us to participate in the care of this patient. ADDENDUM ----- Re-trigger us Nikki Mckeon MD US ORDERABLES Edited Result - Final * US OB FOLLOW UP + TV (09/06/2024 10:40 AM CLAIMS SUPPORT SPECIALIST) Anatomical Region Laterality Modality Pelvis Ultrasound 09/06/2024 10:1 1 AM CLAIMS SUPPORT SPECIALIST Narrative 09/06/2024 10:44 AM CLAIMS SUPPORT SPECIALIST STL FOLLOW UP ----- Pat. Name: JEANINE OSORIO Study Date: 09/06/2024 10:11am Pat. NO: [id number] Referring ??MD: SAMAN VACA MD Site: [facility] Officer: Catrina Pinto RDMS : 1980 Age: 44 ----- INDICATION ----- Screening Follow-Up Exposure to Medications / Drugs, Suspected Damage ?adderall to Fetus Advanced Maternal Age (AMA), Multigravida Recurrent Loss Crohn?s Disease History of PTL/PTD in Previous , ?@ 33 weeks due to POLY Currently CODING ----- Diagnoses ? Z3A.26: Weeks of gestation ?O09.212: Supervision of with history of pre-term labor ?K50.90: Crohn's disease, unspecified, without complications ?N96: Recurrent loss ?O09.522: Supervision of elderly multigravida ?O35.5XX0: Maternal care for (suspected) damage to fetus by drugs ?Z36.3: Encounter for screening for malformations ?Z3A.26: Weeks of gestation ?O09.212: Supervision of with history of pre-term labor ?O09.522: Supervision of elderly multigravida ?O35.5XX0: Maternal care for (suspected) damage to fetus by drugs ?Z36.2: Encounter for other screening follow-up Procedures ?36073: Ultrasound, uterus, real time with image documentation ?01411: Ultrasound, uterus, real time with image documentation, follow up, transabdominal ?approach per fetus HISTORY ----- OB History ? 7. Para 2 ?Miscarriages 4 ?[id number] ?History of Two Vessel Cord and delivery Medication ?Klonopin: 0.5mg MATERNAL ASSESSMENT ----- Physical Exam ? Weight 64 kg. BMI 24.02 kg/m?? METHOD ----- Transabdominal and transvaginal ultrasound examination ----- Cervantes . Number of fetuses: 1 DATING ----- GA by prior assessment 26 w + 4 d DOMENICA by prior assessment: 12/09/2024 Ultrasound examination on: 09/06/2024 GA by U/S based upon: AC, BPD, EFW, Femur, HC GA by U/S 25 w + 5 d DOMENICA by U/S: 12/15/2024 Method of dating: Restore dating from previous exam Assigned: based on stated DOMENICA, selected on 08/02/2024 Assigned GA 26 w + 4 d Assigned DOMENICA: 12/09/2024 BIOMETRY ----- BPD ?64.1 ? mm ?25w 6d ?19% ?Hadlock OFD ?84.3 ? mm ?27w 2d ?73% ?Ricardo HC ? 237.6 ?mm ?25w 6d ?8% ?Hadlock AC ? 213.7 ?mm ?25w 6d ?21% ?Hadlock Femur ?46.6 ? mm ?25w 4d ?11% ?Hadlock HC / AC ?1.11 ? 48% ?Nicolaides Weight Calculation: EFW ?847 ? g ?25w 3d ?13% ?Hadlock EFW (lb,oz) ?1 lb 14 ? oz EFW by ?Hadlock ([id number]) Extremities / Bony Struc Biometry: FL / BPD ?0.73 FL / HC ? 0.20 FL / AC ? 0.22 GENERAL EVALUATION ----- Cardiac activity present. FHR 145 bpm. movements: present. Presentation: cephalic Placenta: Placental site: posterior. Placental gvro-fn-ekgokffg os distance 21 mm Umbilical cord: Cord vessels: 3 vessel cord. Insertion site: placental insertion: normal Amniotic fluid: Amount of AF: normal amount. MVP 5.2 cm. GERALDINE 15.0 cm. Q1 3.1 cm, Q2 5.2 cm, Q3 3.1 cm, Q4 3.7 cm MATERNAL STRUCTURES ----- Cervix ?Normal ?Approach - Transvaginal ANATOMY ----- The following structures appear normal: Head / Neck ? Cranium. Lateral ventricles. Choroid plexus. Midline falx. Cavum septi pellucidi. Cerebellum. Cisterna ?magna. Heart / Thorax ?4-chamber view. RVOT view. LVOT view. ?Diaphragm. Abdomen ? Stomach. Kidneys. Bladder. GROWTH OVERVIEW ----- Exam date ? GA ?BPD (mm) ? HC (mm) ?AC (mm) ? FL (mm) ?HL (mm) ?EFW (g) 08/02/2024 ?21w 4d ?48.9 ?19% ?183.8 ? 11% ?167.2 ?48% ?33.4 ?10% ?32.8 ?29% ?400 ? 22% 09/06/2024 ?26w 4d ?64.1 ?19% ?237.6 ? 8% ? 213.7 ?21% ?46.6 ?11% ? 847 ? 13% COMMENT ----- Patient's name and date of were verified by the casing crew pusher prior to the exam. Nelli Willis was present for the transvaginal ultrasound and served as a conservation scientist. IMPRESSION ----- Impression: Cervantes viable intrauterine at 26w 4d in cephalic presentation. Estimated weight is 847 g (13%ile) with abdominal circumference at the 21%ile. Amniotic fluid volume is normal amount (Amniotic fluid index = 15 cm, maximum vertical pocket = 5.2 cm). Posterior placenta previa has resolved. Recommendation: Follow up growth in 2 weeks due to low normal growth. Thank you for inviting us to participate in your patient's care. Procedure Note Dianna Plata MD - 09/06/2024 STL FOLLOW UP ----- Pat. Name:Kenan OSORIO Date:09/06/2024 10:11am Pat. NO: [id number] MD:SAMAN VACA [facility] RDMS :1980Age:44 ----- INDICATION ----- Screening Follow-Up Exposure to Medications / Drugs, Suspected Damage adderall to Fetus Advanced Maternal Age (AMA), Multigravida Recurrent Loss Crohn?s Disease History of PTL/PTD in Previous , @ 33 weeks due toPOLY Currently CODING ----- Diagnoses Z3A.26: Weeks of gestation O09.212: Supervision of with history ofpre-term labor K50.90: Crohn's disease, unspecified, withoutcomplications N96: Recurrent loss O09.522: Supervision of elderly multigravida O35.5XX0: Maternal care for (suspected) damage tofetus by drugs Z36.3: Encounter for screening formalformations Z3A.26: Weeks of gestation O09.212: Supervision of with history ofpre-term labor O09.522: Supervision of elderly multigravida O35.5XX0: Maternal care for (suspected) damage tofetus by drugs Z36.2: Encounter for other screeningfollow-up Procedures [id number]: Ultrasound, uterus, real time withimage documentation 06867: Ultrasound, uterus, real time withimage documentation, follow up, transabdominal approach per fetus HISTORY ----- OB History 7. Para 2 Miscarriages 4 [id number] History of Two Vessel Cord and delivery Medication Klonopin: 0.5mg MATERNAL ASSESSMENT ----- Physical Exam Weight 64 kg. BMI 24.02 kg/m?? METHOD ----- Transabdominal and transvaginal ultrasound examination ----- Cervantes . Number of fetuses: 1 DATING ----- GA by prior [id number] w + 4 d DOMENICA by prior assessment:12/09/2024 Ultrasound examination on:09/06/2024 GA by U/S based upon:AC, BPD, EFW, Femur, HC GA by U/S25 w + 5 d DOMENICA by U/S:12/15/2024 Method of dating:Restore dating from previous exam Assigned:based on stated DOMENICA, selected on 08/02/2024 Assigned GA26 w + 4 d Assigned DOMENICA:12/09/2024 BIOMETRY ----- BPD 64.1 mm 25w 6d 19%Hadlock OFD 84.3 mm 27w 2d 73%Ricardo HC 237.6 mm 25w 6d 8%Hadlock AC 213.7 mm 25w 6d 21%Hadlock Femur 46.6 mm 25w 4d 11%Hadlock HC / AC 1.11 48%Nicolaides Weight Calculation: EFW 847 g 25w 3d 13%Hadlock EFW (lb,oz) 1 lb 14 oz EFW by Hadlock ([id number]) Extremities / Bony Struc Biometry: FL / BPD 0.73 FL / HC 0.20 FL / AC 0.22 GENERAL EVALUATION ----- Cardiac activity present. FHR 145 bpm. movements: present.Presentation: cephalic Placenta: Placental site: posterior. Placental cvvs-qf-rfnfdyto osdistance 21 mm Umbilical cord: Cord vessels: 3 vessel cord. Insertion site: placentalinsertion: normal Amniotic fluid: Amount of AF: normal amount. MVP 5.2 cm. GERALDINE 15.0 cm. Q13.1 cm, Q2 5.2 cm, Q3 3.1 cm, Q4 3.7 cm MATERNAL STRUCTURES ----- Cervix Normal Approach - Transvaginal ANATOMY ----- The following structures appear normal: Head / Neck Cranium. Lateral ventricles. Choroid plexus.Midline falx. Cavum septi pellucidi. Cerebellum. Cisterna magna. Heart / Thorax 4-chamber view. RVOT view. LVOT view. Diaphragm. Abdomen Stomach. Kidneys. Bladder. GROWTH OVERVIEW ----- Exam date GA BPD (mm) HC (mm) AC (mm) FL(mm) HL (mm) EFW (g) 08/02/2024 21w 4d 48.9 19% 183.8 11% 167.2 48%33.4 10% 32.8 29% 400 22% 09/06/2024 26w 4d 64.1 19% 237.6 8% 213.7 21%46.6 11% 847 13% COMMENT ----- Patient's name and date of were verified by the casing crew pusher prior tothe exam. Nelli Willis was present for the transvaginal ultrasound and served as achaperone. IMPRESSION ----- Impression: Cervantes viable intrauterine at 26w 4d in cephalicpresentation. Estimated weight is 847 g (13%ile) with abdominal circumference atthe 21%ile. Amniotic fluid volume is normal amount (Amniotic fluid index = 15 cm,maximum vertical pocket = 5.2 cm). Posterior placenta previa has resolved. Recommendation: Follow up growth in 2 weeks due to low normal growth. Thank you for inviting us to participate in your patient's care. us Nikki Mckeon MD ORDERABLES Final Result * CERV/VAG CYTOPATH, THIN PREP DONOR SERVICES COORDINATOR AND HPV (CP) (10/07/2015 3:25 PM CLAIMS SUPPORT SPECIALIST) CLINICAL INFORMATION SEE COMMENT 10/14/2015 3:30 PM CLAIMS SUPPORT SPECIALIST [facility] Comment:Information not prov ided LAST MENSTRUAL PERIOD SEE COMMENT 10/14/2015 3:30 PM CLAIMS SUPPORT SPECIALIST [facility] Comment:Information not prov ided PREV PAP: SEE COMMENT 10/14/2015 3:30 PM CLAIMS SUPPORT SPECIALIST [facility] Comment:Information not prov ided PREV BX: SEE COMMENT 10/14/2015 3:30 PM CLAIMS SUPPORT SPECIALIST [facility] Comment:Information not prov ided SOURCE Endocervix 10/14/2015 3:30 PM CLAIMS SUPPORT SPECIALIST [facility] ADEQUACY: SEE COMMENT 10/14/2015 3:30 PM CLAIMS SUPPORT SPECIALIST [facility] Comment: Satisfactory for evaluation. Endocervical/transformation zone component present. Age and/or menstrual status not provided INTERPRETATION SEE COMMENT 10/14/2015 3:30 PM CLAIMS SUPPORT SPECIALIST [facility] Comment:Negative for intraep ithelial lesion or malignancy. COMMENT SEE COMMENT 10/14/2015 3:30 PM CLAIMS SUPPORT SPECIALIST [facility] Comment: This Pap test has been evaluated with computer assisted technology. JAVA GROOVY DEVELOPER: SEE COMMENT 10/14/2015 3:30 PM CLAIMS SUPPORT SPECIALIST [facility] Comment: ALBERTO, CT(ASCP) CT screening location: [place] [address] [address] [place] [id number] HPV E6/E7 Not Detected Not Detected 10/14/2015 3:30 PM CLAIMS SUPPORT SPECIALIST [facility] Comment: This test was performed using the APTIMA HPV Assay ([employer] ? This assay detects E6/E7 viral messenger RNA (mRNA) from 14 high-risk HPV types (16,18,31,33,35,39,45,51,52,56,58,59,66,68). Endocervical Collection / Unknown 10/07/2015 3:25 PM CLAIMS SUPPORT SPECIALIST 10/07/2015 9:19 PM CLAIMS SUPPORT SPECIALIST Narrative [facility] - 10/14/2015 3:30 PM CLAIMS SUPPORT SPECIALIST Performing Organization Information: ?Site ID: [id number] ?Name[facility] ?Address: [facility] [place] [address] ?Director: Minor Patrick MD Lady Will NP PATHOLOGY/CYTOLOGY ORDERABLES nal Result [facility] [address] [address] [place] [address], from Last 3 Months or Most Recently Relevant to Health [place] [address] [place] [address] [employer] Commercial Advance Directives For more information, please contact: [phone] * Full Code (Latest Code Status on File) Date Activated Date Inactivated Comments 03/26/2021 8:40 AM 03/26/2021 3:58 PM * Full Code Date Activated Date Inactivated Comments 05/02/2016 6:46 PM 05/04/2016 5:30 PM * Full Code Date Activated Date Inactivated Comments 05/02/2016 2:17 PM 05/02/2016 6:46 PM * Full Code Date Activated Date Inactivated Comments 04/26/2016 4:02 PM 04/26/2016 6:57 PM * Full Code Date Activated Date Inactivated Comments 04/18/2016 11:16 AM 04/18/2016 2:14 PM
--- OUTSIDE RECORDS SUMMARY | 2024-11-20 16:33 | XMS_ITS | Patient Health Summary ---
Author Organization [facility] Address [address] [place] [address] Care Team Providers Care Paraprofessional Aide Name Role Phone Unavailable Primary Care Provider Unavailabl e Note from [facility],non-owned Affiliates and Associated Physician Practices is amultiple site organization consisting of ambulatory clinics and hospital sitesin [place], [place], [place] and [place]. This disclosure is being madepursuant to the Care Everywhere program and may not contain all information available regarding this patient. Last updated 18.[facility] Allergies * Prochlorperazine(Unknown) -Low Criticality Medications * [...] CDT Oxygen Saturation 96% 09/30/2019 1:20 AM HOLTER SCANNING TECHNICIAN Inhaled Oxygen Concentration - - Weight 49.9 kg (110 lb) 04/07/2020 11:24 AM CDT Height 162.6 cm (5' 4 ) 08/01/2023 8:17 AM CDT Body Mass Index 18.88 04/07/2020 11:24 AM CDT Procedures * LUPUS ANTICOAGULANT PANEL(Performed 08/01/2023) Performed for SAB (spontaneous ) (FORM[facility]LY [facility]) * BETA-2 GLYCOPROTEIN 1 ANTIBODY IGG/IGM PANEL(Performed 08/01/2023) Performed for SAB (spontaneous ) ([facility]) * CARDIOLIPIN ANTIBODY IGG/IGM PANEL(Performed 08/01/2023) Performed for SAB (spontaneous ) ([facility]) * COMPREHENSIVE METABOLIC PANEL(Performed 08/01/2023) Performed for SAB (spontaneous ) ([facility]) * CBC W/O DIFFERENTIAL(Performed 08/01/2023) Performed for SAB (spontaneous ) ([facility]) * SONOGRAM - COMPLETE(Performed 08/01/2023) Performed for Establish gestational age, ultrasound (FORMERLY [facility]) * MAMMO LEFT DIAGNOSTIC(Performed 04/15/2020) Performed for [...] - 38.4 Seconds 08/02/2023 12:02 PM CDT [facility] PT 12.5 12.1 - 14.8 Seconds 08/02/2023 12:02 PM [facility] INR 1.0 See Comment 08/02/2023 12:02 PM [facility] [place] Buffer 47.3 Seconds 023 12:02 PM [facility] [place] Phospholipid 44.6 Seconds 08/02/2023 12:02 PM [facility] [place] Delta 2.7 <8.0 Seconds 08/02/2023 12:02 PM [facility] Interpretation [place] Negative 08/02/2023 12:02 PM [facility] Comment:Up to 15-20% of mo ents [...] Heart MD LAB - HEMATOLOGY ORD ERABLES [facility] Organization Address City/State/ZIP Co de Phone Number [facility] [address] [place] [phone], [facility] [phone] * CARDIOLIPIN ANTIBODY IGG/IGM PANEL (08/01/2023 8:56 AM CDT) Cardiolipin Antibody IgG <9 0 - 14 GPL U/mL 08/02/2023 4:11 PM CDT [facility] ([facility]) Comment: ?Negative: ?<15 ?Indeterminate: ? 15 - 20 ?Low-Med Positive: >20 - 80 ?High Positive: ? >80 Cardiolipin Antibody IgM 10 0 - 12 MPL U/mL 08/02/2023 4:11 PM CDT [facility] ([facility]) Comment: ?Negative: ?<13 ?Indeterminate: ? 13 - 20 ?Low-Med Positive: >20 - 80 ?High Positive: ? >80 Blood BLOOD SPECIMEN / Unknown Venipuncture / Unknown 08/01/2023 8:56 AM CDT 08/01/2023 9:15 AM CDT [facility]ative [facility] - 08/02/2023 4:11 PM CDT Performed at: ??01 - Lab[facility] [address] [place], [place] ??[id number] Hardware Test Engineer: Young Reed PhD, Phone: ??[phone] Kimmy Heart MD LAB - SEROLOGY ORDER [facility] ([facility]) [address] [place] [address] * BETA-2 GLYCOPROTEIN 1 ANTIBODY IGG/IGM PANEL (08/01/2023 8:56 AM CDT) Beta-2 Glycoprotein I Antibody IgG <9 0 - 20 GPI IgG units 08/03/2023 3:35 AM CDT [facility] ([facility]) Comment: The reference interval reflects a 3SD or 99th percentile interval, which is thought to represent a potentially clinically significant result in accordance with the International Consensus Statement on the classification criteria for definitive antiphospholipid syndrome (APS). J Thromb Haem 2006;4:295-306. Beta-2 Glycoprotein I Antibody IgM 9 0 - 32 GPI IgM units 08/03/2023 3:35 AM CDT [facility] ([facility]) Comment: The reference interval reflects a 3SD or 99th percentile interval, which is thought to represent a potentially clinically significant result in accordance with the International Consensus Statement on the classification criteria for definitive antiphospholipid syndrome (APS). J Thromb Haem 2006;4:295-306. Blood BLOOD SPECIMEN / Unknown Venipuncture / Unknown 08/01/2023 8:56 AM CDT 08/01/2023 9:15 AM CDT [facility] ([facility]) - 08/03/2023 3:35 AM CDT Performed at: ??01 - [address] ??[id number] Hardware Test Engineer: Dylon Yap MD, Phone: ??[phone] Kimmy Heart MD LAB - CHEMISTRY [facility] Organization Address City/State/ZIP Co de Phone Number [facility] ([facility]) [address] [place] [address] * (ABNORMAL) CBC W/O DIFFERENTIAL (08/01/2023 8:56 AM CDT) [facility] WBC 9.7 4.4 - 10.7 x10E9/L 08/01/2023 9:24 AM CDT [facility] RBC 3.91 3.80 - 5.20 x10E12/L 08/01/2023 9:24 AM CDT [facility] Hemoglobin 12.1 12.0 - 15.6 gm/dL 08/01/2023 9:24 AM CDT [facility] Hematocrit 36.0 35.9 - 45.5 % 08/01/2023 9:24 AM CDT [facility] MCV 92.1 80.7 - 98.3 fl 08/01/2023 9:24 AM CDT [facility] MCH 30.9 26.7 - 34.0 pg 08/01/2023 9:24 AM CDT [facility] MCHC 33.6 30.8 - 35.9 gm/dL 08/01/2023 9:24 AM CDT [facility] Platelet Count 380 153 - 416 x10E9/L 08/01/2023 9:24 AM CDT [facility] RDW-CV 13.4 12.1 - 14.9 % 08/01/2023 9:24 AM CDT [facility] MPV 9.0(L) 9.4 - 12.9 fl 08/01/2023 9:24 AM CDT [facility] Blood BLOOD SPECIMEN / Unknown Venipuncture / Unknown 08/01/2023 8:56 AM CDT 08/01/2023 9:15 AM CDT Kimmy Heart MD LAB - HEMATOLOGY ORD ERABLES [facility] [address] [place] [address] * COMPREHENSIVE METABOLIC PANEL (08/01/2023 8:56 AM CDT) Only the most recent of5 resultswithin the time period is included. Glucose 92 70 - 105 mg/dL 08/01/2023 9:47 AM CDT [facility] Sodium 139 136 - 145 mmol/L 08/01/2023 9:47 AM CDT [facility] Potassium 3.8 3.5 - 5.1 mmol/L 08/01/2023 9:47 AM CDT [facility] Chloride 104 98 - 107 mmol/L 08/01/2023 9:47 AM CDT [facility] CO2 28 22 - 29 mmol/L 08/01/2023 9:47 AM CDT [facility] Calcium 9.5 8.4 - 10.4 mg/dL 08/01/2023 9:47 AM CDT [facility] Anion Gap 7 6 - 16 mmol/L 08/01/2023 9:47 AM CDT [facility] BUN 7 5.3 - 18.7 mg/dL 08/01/2023 9:47 AM CDT [facility] Creatinine 0.75 0.57 - 1.11 mg/dL 08/01/2023 9:47 AM CDT [facility] Alkaline Phosphatase 49 40 - 150 U/L 08/01/2023 9:47 AM CDT [facility] ALT 9 0 - 55 U/L 08/01/2023 9:47 AM CDT [facility] AST 20 5 - 34 U/L 08/01/2023 9:47 AM CDT [facility] Protein Total 7.3 6.4 - 8.3 gm/dL 08/01/2023 9:47 AM CDT [facility] Albumin 4.0 3.4 - 5.0 gm/dL 08/01/2023 9:47 AM CDT [facility] Bilirubin Total 0.3 0.2 - 1.2 mg/dL 08/01/2023 9:47 AM CDT [facility] eGFR by CKD-EPI >90 >=90 mL/min/1.7 3 m2 08/01/2023 9:47 AM CDT [facility] Blood BLOOD SPECIMEN / Unknown Venipuncture / Unknown 08/01/2023 8:56 AM CDT 08/01/2023 9:15 AM CDT Kimmy Heart MD LAB - CHEMISTRY [facility] Organization Address [facility]/State/[facility] Co de Phone Number [facility] [address] [place] [address] * SONOGRAM - COMPLETE (08/01/2023 7:52 AM CDT) Anatomical Region Laterality Modality Other 08/01/2023 7:52 AM CDT Narrative 08/01/2023 9:33 AM CDT ? [facility] ?PHONE: ??FAX: Pat. Name: ?JEANINE MONTOYA Pat. No: ?[id number] Study Date: ?? 08/01/2023 ??7:52am , Age: ? 1980, 43 Pregnancies: ?? 14, Para 2-1-10-3 Height: ? 64 in Weight: ? 110 lb LMP: ?06/06/2023 GA by LMP: ?08w0d GA by US: ? 06w4d ?? DOMENICA: 03/22/2024 GA Selected: ??06w4d (Sonographic) DOMENICA: ?03/22/2024 Referring MD: Narciso, , [facility] Compliance Aide: ??Poonam Mendez, RDMS, RDCS CPT4: ? 37333,[address]187 BMI: ?18.88 Hist/Ind: ? Dating ?Advanced maternal age, multigravida ?Chronh's ?Multiple SAB (possibly x 10) ?MJ use MEASUREMENTS & AGE ? GROWTH EVALUATION Measurement ??GA ? Range ? Srce %for GA Ratios ----- ---- ------- CRL ??0.7 cm 06w4d ([id number]) Hadl CRL 50% GA for sonogram 06w4d (26u6s-12g7o) based on (CRL) Avg ? PROCEDURE, TECHNIQUE [...] early failed . Patient was sent to [facility] for further management. RECOMMEND: Findings were communicated to provider care team at [facility] clinic at the time of the scan. Follow up as clinically indicated Vincenzo Blood MD <Electronic Signature> ??08/01/2023 09:32am Eulalio Lau MD [facility] ORDERABLES * MAMMO LEFT DIAGNOSTIC (04/15/2020 2:21 PM CDT) Anatomical Region Laterality Modality Breast Left Mammography 04/15/2020 2:19 PM CDT Impressions 04/16/2020 4:12 PM CDT Successful ultrasound-guided left breast biopsy and left axillary lymph node biopsy *Reading Radiologist: Jeffrey Ramirez on 04/16/2020 at 4:12 PM Narrative 04/16/2020 4:12 PM CDT EXAM: US BREAST LEFT BIOPSY*[id number] INDICATION: Other abnormal and inconclusive findings on [...] 2:22 PM CDT EXAM: US BREAST LEFT BIOPSY*[id number] INDICATION: Other abnormal and inconclusive findings on [...] Case Report Surgical Pathology Report ? Case: [id number] ? Authorizing Provider: ??Lucas, Kandi Powell, DO ?Collected: ? 04/15/2020 01:56 PM ? Ordering Location: ? [facility] ? Received: ?04/16/2020 08:50 AM ? Pathologist: ? Cynthia Fortune MD ? Specimens: ?? A) - Breast Core Biopsy, Left Breast 10:00, 1cmfn ? B) - Breast Core Biopsy ? 04/21/2020 11:33 AM CDT [facility] Final Diagnosis Breast, left, 10 o'clock, 1 cm from nipple, ultrasound-guided needle biopsy: - Focal proliferative fibrocystic changes - No evidence of malignancy - See description Lymph node, left axilla, ultrasound-guided needle biopsy: - Benign lymph node with tattoo pigment - No evidence of malignancy BECK/eric 04/21/2020 11:33 AM [facility] Gross Description Received in two formalin-filled [...] is 1 second. AGUSTÍN/lexx 04/21/2020 11:33 AM [facility] Microscopic Description Histologic sections show fragments [...] evidence of malignancy. BECK/eric 04/21/2020 11:33 AM [facility] Disclaimer All histochemical and/or immunohistochemical results are interpreted with controls that demonstrate appropriate staining reactions before reporting results. Note on use of immunocytochemistry reagents: This test was developed and its performance characteristic determined by [facility], Department of Laboratory Medicine. It has not [...] interpreted with caution. 04/21/2020 11:33 AM CDT [facility] Embedded Images 04/21/2020 11:33 AM CDT [facility] Pathology/Cytology SPECIMEN FROM BREAST OBTAINED BY CORE NEEDLE BIOPSY / Unknown 04/15/2020 1:56 PM CDT 04/16/2020 8:50 AM CDT Miscellaneous samples (specimen) SPECIMEN FROM BREAST OBTAINED BY CORE NEEDLE BIOPSY / Unknown 04/15/2020 1:57 PM CDT 04/16/2020 8:50 AM CDT Kandi Zavala DO LAB - PATHOLOGY/CYTO LOGY ORDERABLES [facility] [address] [place] [address] * US BREAST BILATERAL LTD( most commonly [...] if suspicious findings are present clinically. An [employer] certified facility. [facility] Breast Centers utilize Webs as a reminder system to notify patients of their next recommended mammograms. Edited by Steff Gonzalez on 04/09/2020 2:52 PM *Reading Radiologist: Zhou Nicholas on 04/09/2020 at 2:58 PM Kandi Zavala DO MAMMO ORDERABLES * PT PTT PANEL (09/29/2019 11:54 PM HOLTER SCANNING TECHNICIAN) PT 10.3 9.5 - 11.6 sec 09/30/2019 12:50 AM HOLTER SCANNING TECHNICIAN [facility] INR 1.0 0.9 - 1.1 09/30/2019 12:50 AM [facility] PTT 25.4 21.0 - 32.0 sec 09/30/2019 12:50 AM [facility] Blood BLOOD SPECIMEN / Unknown Venipuncture / Unknown 09/29/2019 11:54 PM HOLTER SCANNING TECHNICIAN 09/30/2019 12:01 AM HOLTER SCANNING TECHNICIAN Narrative [facility] - 09/30/2019 12:50 AM HOLTER SCANNING TECHNICIAN Conventional Warfarin Anticoagulant Therapy: INR Reference Range: ??2.0-3.0 Intensive Warfarin Anticoagulant Therapy: INR Reference Range: ? 2.5-3.5 Heparin Therapeutic Range for PTT: 50.5 - 74.3 seconds. Kasie Rodriguez MD LAB - COAGULATION OR DERABLES [facility] [address] [place] [address] * (ABNORMAL) CBC W AUTO DIFFERENTIAL (09/29/2019 11:54 PM HOLTER SCANNING TECHNICIAN) Only the most recent of5 resultswithin the time period is included. WBC 7.5 4.4 - 10.7 x10E9/L 09/30/2019 12:04 AM [facility] WBC Corrected 09/30/2019 12:04 AM [facility] RBC 3.18(L) 3.80 - 5.20 x10E12/L 09/30/2019 12:04 AM [facility] Hemoglobin 9.9(L) 12.0 - 15.6 gm/dL 09/30/2019 12:04 AM [facility] Hematocrit 29.3(L) 35.9 - 45.5 % 09/30/2019 12:04 AM [facility] MCV 92.1 80.7 - 98.3 fl 09/30/2019 12:04 AM [facility] MCH 31.1 26.7 - 34.0 pg 09/30/2019 12:04 AM [facility] MCHC 33.8 30.8 - 35.9 gm/dL 09/30/2019 12:04 AM [facility] Platelet Count 233 153 - 416 x10E9/L 09/30/2019 12:04 AM [facility] RDW-CV 12.7 12.1 - 14.9 % 09/30/2019 12:04 AM [facility] MPV 8.7(L) 9.4 - 12.9 fl 09/30/2019 12:04 AM [facility] Neutrophils % 54.5 44.0 - 73.0 % 09/30/2019 12:04 AM [facility] Lymphocytes % 34.3 20.0 - 43.0 % 09/30/2019 12:04 AM [facility] Monocytes % 8.5 5.0 - 13.0 % 09/30/2019 12:04 AM [facility] Eosinophils % 2.1 0.0 - 6.0 % 09/30/2019 12:04 AM [facility] Basophils % 0.5 0.0 - 2.0 % 09/30/2019 12:04 AM [facility] Immature Granulocytes 0.1 0 - 1 % 09/30/2019 12:04 AM [facility] Neutrophil Absolute 4.08 2.01 - 7.14 x10E9/L 09/30/2019 12:04 AM [facility] Lymphocytes Absolute 2.57 1.07 - 3.94 x10E9/L 09/30/2019 12:04 AM [facility] Monocytes Absolute 0.64 0.26 - 1.07 x10E9/L 09/30/2019 12:04 AM [facility] Eosinophils Absolute 0.16 0 - 0.47 x10E9/L 09/30/2019 12:04 AM [facility] Basophils Absolute 0.04 0 - 0.08 x10E9/L 09/30/2019 12:04 AM [facility] Immature Granulocytes Absolute 0.01 0.00 - 0.06 x10E9/L 09/30/2019 12:04 AM [facility] nRBC Auto 0 /100 WBC 09/30/2019 12:04 AM [facility] Blood BLOOD SPECIMEN / Unknown Venipuncture / Unknown 09/29/2019 11:54 PM HOLTER SCANNING TECHNICIAN 09/30/2019 12:01 AM [facility] Kasie Rodriguez MD LAB - HEMATOLOGY ORD ERABLES [facility] [address] [place] [id number] * HCG BETA BLOOD QUANTITATIVE (09/29/2019 11:54 PM [facility]) Only the most recent of3 resultswithin the time period is included. hCG Quantitative <1.20 mIU/mL 09/30/20 19 2:11 AM [facility] Blood BLOOD SPECIMEN / Unknown Venipuncture / Unknown 09/29/2019 11:54 PM HOLTER SCANNING TECHNICIAN 09/30/2019 12:01 AM HOLTER SCANNING TECHNICIAN Narrative [facility] - 09/30/2019 2:11 AM HOLTER SCANNING TECHNICIAN ? hCG Reference Range, mIU/mL: ? Males [...] Rodriguez MD LAB - CHEMISTRY DANIELLE FRANKLIN [facility] [address] [place] [address] * MAGNESIUM BLOOD (09/29/2019 11:54 PM HOLTER SCANNING TECHNICIAN) Magnesium 1.8 1.6 - 2.6 mg/dL 09/30/2019 12:21 AM HOLTER SCANNING TECHNICIAN [facility] Blood BLOOD SPECIMEN / Unknown Venipuncture / Unknown 09/29/2019 11:54 PM HOLTER SCANNING TECHNICIAN 09/30/2019 12:01 AM HOLTER SCANNING TECHNICIAN Kasie Rodriguez MD LAB - CHEMISTRY DANIELLE FRANKLIN Performing Organization Address City/[facility]/ZIP Co de Phone Number [facility] [place] [address] * LIPASE BLOOD (09/29/2019 11:54 PM HOLTER SCANNING TECHNICIAN) Lipase 12 8 - 78 U/L 09/30/2019 12:21 AM HOLTER SCANNING TECHNICIAN [facility] Blood BLOOD SPECIMEN / Unknown Venipuncture / Unknown 09/29/2019 11:54 PM HOLTER SCANNING TECHNICIAN 09/30/2019 12:01 AM HOLTER SCANNING TECHNICIAN Kasie Rodriguez MD LAB - CHEMISTRY DANIELLE FRANKLIN Performing Organization Address [facility] Co de Phone Number [facility] [place] [place] [address] * LACTIC ACID BLOOD (09/29/2019 11:54 PM HOLTER SCANNING TECHNICIAN) Lactic Acid 0.52 0.5 - 2.2 mmol/L 09/30/2019 12:16 AM HOLTER SCANNING TECHNICIAN [facility] Blood BLOOD SPECIMEN / Unknown Venipuncture / Unknown 09/29/2019 11:54 PM HOLTER SCANNING TECHNICIAN 09/30/2019 12:01 AM HOLTER SCANNING TECHNICIAN Kasie Rodriguez MD LAB - CHEMISTRY DANIELLE FRANKLIN Performing Organization Address [facility] Co de Phone Number [facility] [place] [phone] * XR SACRUM AND COCCYX (08/13/2017 10:05 AM CDT) Anatomical Region Laterality Modality Spine Radiographic Giovana ging 08/13/2017 10:1 8 AM CDT Narrative 08/13/2017 10:21 AM CDT EXAM: XR SACRUM AND COCCYX*[id number] INDICATION: Unspecified injury of lower back, initial [...] MD - 08/13/2017 EXAM: XR SACRUM AND COCCYX*[id number] INDICATION: Unspecified injury of lower back, initial [...] Bilateral sacroiliac joints are intact. Christel Voss APRN-MACHINE CLOTHING REPLACER DIAGNOSTIC IMAGI NG ORDERABLES * HCG URINE QUALITATIVE - POINT OF CARE (IP) (08/13/2017 8:25 AM CDT) Only the most recent of4 resultswithin the time period is included. HCG Qual Urine Negative Negative [facility] POCT TESTING QC Verified Yes Yes [facility] POC T TESTING Urine URINE / Unknown 08/13/2017 8 :25 AM CDT Christel Voss APRN-MACHINE CLOTHING REPLACER LAB - POINT OF C ARE ORDERABLES [facility] POCT TESTING [facility] [place] [address] * US OB 14+ WKS SINGLE GEST (12/12/2015 10:22 AM HOLTER SCANNING TECHNICIAN) Anatomical Region Laterality Modality Abdomen Ultrasound 12/12/2015 10:2 2 AM HOLTER SCANNING TECHNICIAN Impressions 12/12/2015 10:24 AM HOLTER SCANNING TECHNICIAN Intrauterine at 15 weeks 6 day gestation with heart rate 153 beats per minute. Followup should be performed as needed Narrative 12/12/2015 10:24 AM HOLTER SCANNING TECHNICIAN Ultrasound OB greater than 14 weeks transabdominal [...] * SLIDE SCAN HEMATOLOGY (12/12/2015 9:46 AM HOLTER SCANNING TECHNICIAN) Pathologist [facility] Platelet Estimation Normal Normal, Adequate platelets 12/12/2015 10:24 AM HOLTER SCANNING TECHNICIAN [facility] Comment:Platelet estimate = 180-240 Blood BLOOD SPECIMEN / Unknown 12/12/2015 9:46 AM HOLTER SCANNING TECHNICIAN 12/12/2015 9:59 AM HOLTER SCANNING TECHNICIAN Jorge Clifford MD LAB - HEMATOLOGY ORD ERABLES [facility] [address] [place] [address] * (ABNORMAL) URINALYSIS ROUTINE W/REFLEX TO CULTURE (12/12/2015 9:20 AM HOLTER SCANNING TECHNICIAN) Only the most recent of2 resultswithin the time period is included. Color UA Yellow Straw, Yellow, Dark Yellow 12/12/2015 9:35 AM HOLTER SCANNING TECHNICIAN [facility] Clarity UA Clear 12/12/2015 9:35 AM [facility] Specific [place] UA 1.002(L) 1.005 - 1.030 12/12/2015 9:35 AM [facility] pH UA 7.0 5.0 - 8.0 pH 12/12/2015 9:35 AM [facility] Protein UA Negative Negative 12/12/2015 9:35 AM [facility] Blood UA Negative Negative 12/12/2015 9:35 AM [facility] Leukocyte UA Negative Negative 12/12/2015 9:35 AM [facility] Nitrite UA Negative Negative 12/12/2015 9:35 AM [facility] Glucose UA Negative Negative 12/12/2015 9:35 AM [facility] Ketone UA Negative Negative 12/12/2015 9:35 AM [facility] Bilirubin UA Negative Negative 12/12/2015 9:35 AM [facility] Urobilinogen UA 0.2 0.1 - 1.0 EU/dL 12/12/2015 9:35 AM [facility] Reflex Status Culture not indicated 12/12/2015 9:35 AM [facility] Urine URINE SPECIMEN OBTAINED BY CLEAN CATCH PROCEDURE / Unknown 12/12/2015 9:20 AM HOLTER SCANNING TECHNICIAN 12/12/2015 9:29 AM HOLTER SCANNING TECHNICIAN Jorge Clifford MD LAB - URINALYSIS ORD ERABLES [facility] [address] [place] [address] * Stone Protocol CT (08/10/2015 [...] PANEL (CALCIUM TOTAL) (08/04/2015 10:59 AM CDT) [facility] Glucose 79 74 - 106 mg/dL 08/04/2015 11:34 AM [facility] Sodium 140 136 - 145 mmol/L 08/04/2015 11:34 AM [facility] Potassium 3.5 3.5 - 5.1 mmol/L 08/04/2015 11:34 AM [facility] Chloride 107 98 - 107 mmol/L 08/04/2015 11:34 AM [facility] CO2 28 22 - 31 mmol/L 08/04/2015 11:34 AM [facility] Calcium 8.7 8.5 - 10.1 mg/dL 08/04/2015 11:34 AM [facility] Anion Gap 5 5 - 20 mmol/L 08/04/2015 11:34 AM [facility] BUN 12 7 - 21 mg/dL 08/04/2015 11:34 AM [facility] Creatinine 0.66 0.50 - 1.30 mg/dL 08/04/2015 11:34 AM [facility] eGFR by MDRD >60 >60 mL/min/1.7 3m2 08/04/2015 11:34 AM [facility] eGFR by MDRD >60 >60 mL/min/1.7 3m2 08/04/2015 11:34 AM CDT [facility] Blood BLOOD SPECIMEN / Unknown Venipuncture / Unknown 08/04/2015 10:59 AM CDT 08/04/2015 11:10 AM CDT Kasie Rodriguez MD LAB - CHEMISTRY ORDE RABLES Performing Organization Address City/[facility]/ZIP Co de Phone Number [facility] [address] [place], [place] [id number] * HCG URINE QUALITATIVE (08/04/2015 10:26 AM CDT) hCG Qualitative Urine Negative Negative 08/04/2015 11:28 AM CDT [facility] Urine URINE / Unknown Collection / Unknown 08/04/2015 10:26 AM CDT 08/04/2015 11:10 AM CDT Kasie Rodriguez MD LAB - URINALYSIS ORD ERABLES Performing Organization Address [facility] Co de Phone Number [facility] [address] [place] [address] * URINALYSIS ROUTINE AUTO (08/04/2015 10:25 AM CDT) Color UA Yellow Straw, Yellow, Dark Yellow 08/04/2015 10:36 AM T [facility] Clarity UA Clear 08/04/2015 10:36 AM T [facility] Specific [place] UA 1.015 1.005 - 1.030 08/04/2015 10:36 AM T [facility] pH UA 6.0 5.0 - 8.0 pH 08/04/2015 10:36 AM T [facility] Protein UA Negative Negative 08/04/2015 10:36 AM CDT [facility] Blood UA Negative Negative 08/04/2015 10:36 AM T [facility] Leukocyte UA Negative Negative 08/04/2015 10:36 AM T [facility] Nitrite UA Negative Negative 08/04/2015 10:36 AM T [facility] Glucose UA Negative Negative 08/04/2015 10:36 AM T [facility] Ketone UA Negative Negative 08/04/2015 10:36 AM CDT [facility] Bilirubin UA Negative Negative 08/04/2015 10:36 AM CDT [facility] Urobilinogen UA 0.2 0.1 - 1.0 EU/dL 08/04/2015 10:36 AM CDT [facility] Urine URINE SPECIMEN OBTAINED BY CLEAN CATCH PROCEDURE / Unknown 08/04/2015 10:25 AM CDT 08/04/2015 10:28 AM CDT Kasie Rodriguez MD LAB - URINALYSIS ORD ERABLES [facility] [address] [address] * MRI SPINE CERVICAL NON CONTRAST (06/25/2015 [...] (Bezet) 402 ms [facility] MUSE Calculated P [place] 61 degrees [facility] MUSE Calculated R [place] 66 degrees [facility] MUSE Calculated T [place] 52 degrees [facility] MUSE Interpretation EKG Normal sinus rhythm Normal ECG No previous ECGs available Confirmed by MD KELI, LORI Ponce (3) on 06/26/2015 8:30:40 AM [facility] 06/24/2015 8:36 PM CDT 06/26/2015 8:30 AM CDT Ankit Astorga MD ECG ORDERABLE S [facility]
--- OUTSIDE RECORDS SUMMARY | 2024-11-20 16:33 | XMS_ITS | Clinical Summary ---
Author Organization [facility] Address [address] [place] [address] Care Team Providers Care Sighter Name Role Phone None, Provider MD Primary Care Provider Unavaila ble Allergies Active [...] on file Legal Sex Female 11:33 PM STRAIGHTEDGE MAN Gender Identity Not on file Sexual Orientation [...] Screening 2022 04/15/2020, 04/09/2020, 02/02/2019 COVID-19 Vaccine (1 - 2023-2 5 season) 2024 Influenza Adult [...] patient's age to complete this topic Insurance DIVISION Care Teams Sighter Relationship Specialty Start Date End Date None, Provider, PCP - General UNKNOWN PHYSICIAN SPECIALTY 05/15/24
[2024-11-20 17:20] LABS: Basophils Absolute Auto 0.1 K/mm3 (0.0-0.1); Basophils Percent Auto 0.5 % (0.2-1.2); Eosinophils Absolute Auto 0.6 K/mm3 (0-0.3); Eosinophils Percent Auto 4.4 % (0-4.4); Hematocrit 24.7 % (37.0-47.0); Hemoglobin 8.3 g/dL (12.0-15.0); Immature Granulocyte Absolute 0.18 K/mm3 (0.00-0.031); Immature Granulocyte Percent A 1.4 % (0-0.5); Lymphocytes Absolute Auto 2.32 K/mm3 (0.9-3.2); Lymphocytes Percent Auto 18.2 % (18.3-44.2); Mean Corpuscular HGB Conc 33.6 g/dl (32-36); Mean Corpuscular Hemoglobin 30.2 pg (26-34); Mean Corpuscular Volume 89.8 fl (80-100); Mean Platelet Volume 10.4 fl (7.4-10.4); Monocytes Absolute Auto 0.8 K/mm3 (0.1-0.6); Monocytes Percent Auto 6.2 % (2.6-8.5); Neutrophils Absolute Auto 8.8 K/mm3 (1.3-6.7); Neutrophils Percent Auto 69.3 % (45.5-73.1); Platelet Count Result 285 k/mm3 (150-375); Red Blood Count 2.75 M/mm3 (4.2-5.4); Red Cell Distribution Width 13.3 % (11.5-14.5); White Blood Count 12.7 K/mm3 (4.5-10.0)
[2024-11-20 17:24] LABS: Add Urine Microscopic? YES; Appearance Urine Clear (Clear); Bacteria Urine None Seen /hpf; Bilirubin Urine Negative (Negative); Blood Urine Negative (Negative); Color Urine Yellow (Yellow); Glucose Urine UA Negative (Negative); Ketones Urine Negative (Negative); Leukocyte Esterase Ur Negative LEU/UL (Negative); Nitrate Urine Negative (Negative); Non Pathogenic Casts 0-2; Protein Urine 1+ mg/dL (Negative); RBC Urine 0-2 /hpf (0-2); Specific Grav Ur 1.008 (1.001-1.035); Squamous Epithelial Cell Urine None Seen /hpf (Few); Urobilinogen Urine 0.2 mg/dL (<2.0); WBC Urine 0-5 /hpf (0-3)
[2024-11-20 17:31] LABS: Alanine Aminotransferase 12 U/L (6-35); Albumin Level 2.8 g/dL (3.5-5.1); Alkaline Phosphatase 191 U/L (38-126); Anion Gap 8 mmol/L (4-12); Aspartate Amino Transferase 21 U/L (14-36); Bilirubin,Total 0.4 mg/dL (0.2-1.3); Blood Urea Nitrogen 7 mg/dL (7-17); Carbon Dioxide 19 mmol/L (22-30); Chloride 107 mmol/L (98-107); Estimated Glomerular Filt Rate > 60; Glucose 97 mg/dL (65-110); Potassium 3.6 mmol/L (3.4-5.0); Sodium 134 mmol/L (137-145); Total Protein Urine Random 57 mg/dL; Uric Acid 6.1 mg/dL (2.5-7.5)
[2024-11-20 18:19] LABS: Creatinine Urine 39.4 mg/dL; Ur Ttl Prot Creatinine Ratio 1.45 mg/mg (0-0.20)
--- NOTE | 2024-11-20 18:33 | PC.NURSE ---
Called Dr. Shearer, update on pt, labs, blood pressure, and tracing. Orders received to admit as observation, collect 24 hour urine, IV iron transfusion 400 mg, NST every shift, and vitals every four hours.
--- NOTE | 2024-11-20 18:41 | PC.NURSE ---
Called Dr. Shearer, clarified iron dosage, orders received to administer max dose of 400 mg.
--- NOTE | 2024-11-20 18:47 | PC.NURSE ---
Called Dr. Shearer, update on pt not wanting to stay overnight, needs to go home to care for children and wants to come back after getting them settled for the evening. Orders received to have pt go home and return for observation, 24 hour urine collection, and iron transfusion.
--- NOTE | 2024-11-20 18:53 | PC.NURSE ---
Addendum entered by Gloria Rodriguez RN 11/20/24 19:07: Pt verbalizes understanding. Original Note: Pt discharged with instructions to return to unit after going home to care for children and getting overnight items.
== END 2024-11-20 18:53 | disposition home or self-care (01) ==
LOC: ANHOBOP 16:29 → ANHOBPP 16:31
PROVIDERS: Visit Provider Obstetrics & Gynecology Gynecology
DX: O13.9 Gestational [pregnancy-induced] hypertension without significant proteinuria, unspecified trimester (principal)
CPT/HCPCS: 36415; 59025; 80053; 81001; 82542; 82570; 84156; 84550; 85025; 99199

== ENCOUNTER 2024-11-20 20:23 | Outpatient (CLI) | payer OTHER, SELFPAY ==
[2024-11-20] VITALS (35 sets, daily range): BP systolic 112–125; BP diastolic 75–87; PULSE 77–120; TEMP 37.2; O2SAT 100; BMI 27.6
--- OUTSIDE RECORDS SUMMARY | 2024-11-20 20:32 | XMS_ITS | Continuity of Care Document ---
Author Organization [facility] Address [address] [place] [address] Phone Care Team Providers Care Supervisor Livestock Yard Name Role Phone Glenis Hamilton Unavailable Unavailab le Advance Directives Directive Yes / No Effective Date File Name No Information Encounters Encounter Description Practice Location Reason(s) For Visit Diagnoses Date Provider Providers Copied on Encounter [facility], [address], [place], [place], [id number], [place] tel:[phone] [facility] No Information Cricket Galvin. [address] [place] [address], [id number], [place]. tel:[phone] Family History Family Member Type Diagnosis Age [...]
--- OUTSIDE RECORDS SUMMARY | 2024-11-20 20:33 | XMS_ITS | Continuity of Care Document ---
Author Organization [facility] Address [address] [facility] [place] [address] Phone Care Team Providers Care Cage Unloader Name Role Phone Unavailable Unavailable Unavailable Advance Directives Directive Yes / No Effective Date File Name No Information Encounters Encounter Description Practice Location Reason(s) For Visit Diagnoses Date Provider Providers Copied on Encounter [facility], [address] [facility], [place], [place], [id number], tel:[phone] [facility] No Information 6 No Information Referring Provider: RAYSA DOWLING, [address] [facility] [address], [place], [address]. tel:[phone] Family History Family Member Type Diagnosis Age At Onset No Information Payers Payer name Insurance type Covered republican ID Authoriza tiusha(s) [facility] [id number] Social History Type Description Quantity Date Captured Comments Sex Female Smoking Status No Information Chief Complaint And Reason For Visit No Information History Of Present Illness Encounter Date Complaint History Of Prese nt Illness No Information Instructions Date Instruction Additional Infor mation No Information Assessments Type Assessment Date No Information
--- OUTSIDE RECORDS SUMMARY | 2024-11-20 20:33 | XMS_ITS | Referral Summary ---
Author Organization [facility] Virtual Care Address [address] [place] [address] Phone Care Team Providers Care Health Inspector Food Name Role Phone No, Physician Primary Care Provider [phone] Sarika Morrissey MD Unavailable [phone] Encounters Date Type Department Care Team Description 11/06/2024 7:49 PM ASSISTANT PURCHASING MANAGER - 11/06/2024 9:18 PM [facility] Emergency [facility] OB Emergency Department [facility] [place] [address] Rob Abdul MD Pelvic pain affecting in third trimester, antepartum (Primary Dx); 35 weeks gestation of Discharge Disposition: Discharge to home or self care from Last 3 Months Allergies Active Allergy Reactions Criticality Noted Date Comments Prochlorperazine Mental status changes Low 12/09/19 21 Medications vit 17-vtyr-grvbc-dha 27mg iron- 800 mcg-250 mg capsule Take [...] any time in the past 12 m [facility], were you homeless or living in a residential (including now)? No 11/06/2024 Personal Safety Answer [...] on file Legal Sex Female 9:12 PM ASSISTANT PURCHASING MANAGER Gender Identity Not on file Sexual Orientation Not on file Last Filed Vital Signs Vital Sign Reading Time Taken Comments Blood Pressure 122/74 11/06/2024 8:05 PM ASSISTANT PURCHASING MANAGER Pulse 113 11/06/2024 8:05 PM ASSISTANT PURCHASING MANAGER Temperature 36.7 ??C (98.1 ??F) 11/06/2024 8:05 PM CS T Respiratory Rate 18 11/06/2024 8:05 PM ASSISTANT PURCHASING MANAGER Oxygen Saturation 100% 11/06/2024 8:05 PM ASSISTANT PURCHASING MANAGER Inhaled Oxygen Concentration - - Weight 69.9 kg (154 lb) 11/06/2024 8:28 PM ASSISTANT PURCHASING MANAGER Height 162.6 cm (5' 4 ) 11/06/2024 8:28 PM ASSISTANT PURCHASING MANAGER Body Mass Index 26.43 11/06/2024 8:28 PM ASSISTANT PURCHASING MANAGER Plan of Treatment Not on file Procedures Procedure Name Priority Date/Time Associated Diagnosis Comments URINALYSIS AND REFLEX TO MICROSCOPIC AND CULTURE STAT 11/06/2024 8:31 PM ASSISTANT PURCHASING MANAGER from Last 3 Months Results * Urinalysis reflex to microscopic and culture Urine (11/06/2024 8:31 PM ASSISTANT PURCHASING MANAGER) Color, ur Straw Yellow Comment:Testing performed by : [address] [address] Clarity, ur Clear Clear RU Comment:Testing performed by : [address] [address] Specific gravity, ur 1.005 1.003 - 1.030 RU Comment:Testing performed by : [address] [address] pH, urine 6.5 RU Comment: Interpretive Data ? Urine pH is affected by diet, medications, systemic acid-base disturbances, and renal tubular function. ??pH may affect urinary stone formation. ??For example, urine pH below 6.0 may help reduce the tendency for calcium phosphate stones and pH greater than 6.0 may reduce the tendency for uric acid stone formation. Source: [facility] Current Interpretive Data was last revised on 2017 Testing performed by: [facility], [address] [place] [address]., [address] Protein, ur ql Negative Negative RU Comment:Testing performed by : [address] [address] Glucose, ur ql Negative Negative RU Comment:Testing performed by : [address], [place]., [address] Ketones, ur Negative Negative RU Comment:Testing performed by : [address], [place]., [address] Bilirubin, ur Negative Negative RU Comment:Testing performed by : [address] [address] Blood, ur Negative Negative RU Comment:Testing performed by : [address], [place]., [address] Urobilinogen, ur <2.0 <2.0 mg/dL RU Comment:Testing performed by : [address] [address] Nitrite, ur Negative Negative RU Comment:Testing performed by : [address] [address] Leukocyte esterase, ur Negative Negative RU Comment:Testing performed by : [address] [address] UA reflex comment Reflex conditions for microscopic UA and culture not met. RU Comment:Testing performed by : [address] [address] Urine 11/06/2024 8:31 PM ASSISTANT PURCHASING MANAGER 11/06/2024 8:33 PM ASSISTANT PURCHASING MANAGER us Dennis Wolff MD LAB MICROBIOLOGY - GENERAL ORDERABLES Final Result RU [address] [facility] [place] [address] from Last 3 Months Insurance [facility] Care Teams Health Inspector Food Relationship Specialty Start Date End Date No, Physician PCP - General 05/20/21 Sarika Morrissey MD [address] [place] [phone] 12/09/20
--- OUTSIDE RECORDS SUMMARY | 2024-11-20 20:33 | XMS_ITS | Clinical Summary ---
Author Organization [facility] Address [address] [place] [address] Care Team Providers Care Engineering Technical Specialist Name Role Phone None, Provider MD Primary [...] on file Legal Sex Female 11:33 PM NETWORK ARCHITECT MANAGER Gender Identity Not on file Sexual [...] complete this topic Insurance DIVISION Care Teams Engineering Technical Specialist Relationship Specialty Start Date End Date None, Provider, PCP - General UNKNOWN PHYSICIAN SPECIALTY 05/15/24
--- OUTSIDE RECORDS SUMMARY | 2024-11-20 20:33 | XMS_ITS | Clinical Summary ---
Author Organization [facility] Address [address] [place] [address] Care Team Providers Care Foundation Stage Teacher Name Role Phone Unavailable Primary Care Provider Unavailabl e Source Comments [facility],non-owned Affiliates and Associated Physician Practices is amultiple site organization consisting of ambulatory clinics and hospital sitesin [place], [place], [place] and [place]. This disclosure is being madepursuant to the Care Everywhere program and may not contain all information available regarding this patient. Last updated 18.[facility] Allergies Active Allergy Reactions Criticality Noted Date [...] CDT Oxygen Saturation 96% 09/30/2019 1:20 AM SERVER ENGINEER Inhaled Oxygen Concentration - - Weight 49.9 [...] if suspicious findings are present clinically. An [employer] certified facility. [facility] utilize [employer] as a reminder system to notify patients [...]
--- OUTSIDE RECORDS SUMMARY | 2024-11-20 20:33 | XMS_ITS | Clinical Summary ---
Author Organization [facility] Care Address [address] [place] [address] Phone Care Team Providers Care Bulk Delivery Driver Name Role Phone No, Physician Primary Care Provider [phone] Sarika Morrissey MD Unavailable [phone] Allergies Active Allergy Reactions Criticality Noted Date Comments Prochlorperazine Mental status changes Low 12/09/19 21 Medications vit 23-kclf-ziaop-dha 27mg iron- 800 mcg-250 mg capsule Take [...] Department Care Team Description 11/06/2024 7:49 PM FLAG MAKER - 11/06/2024 9:18 PM FLAG MAKER Emergency [facility] OB Emergency Department [address] [place] [address] Rob Abdul MD Pelvic pain affecting in third trimester, antepartum (Primary Dx); 35 weeks gestation of Discharge Disposition: Discharge to home or self care from Last 3 Months Surgical History Surgery Date Site/Laterality Comments INDUCED UPPER GASTROINTESTINAL ENDOSCOPY SECTION Medical History Medical History Date Comments Meningitis Crohn's colitis (CMS/HCC) (HCC) Anxiety Yanique-Danlos syndrome Crohn's disease (CMS/HCC) ([facility]) Adhd Social History Tobacco Use Types Packs/Day [...] any time in the past 12 m [facility], were you homeless or living in a penitentiary (including now)? No 11/06/2024 Personal Safety Answer [...] on file Legal Sex Female 9:12 PM FLAG MAKER Gender Identity Not on file Sexual Orientation [...] Comments Blood Pressure 122/74 11/06/2024 8:05 PM FLAG MAKER Pulse 113 11/06/2024 8:05 PM FLAG MAKER Temperature 36.7 ??C (98.1 ??F) 11/06/2024 8:05 PM CS T Respiratory Rate 18 11/06/2024 8:05 PM FLAG MAKER Oxygen Saturation 100% 11/06/2024 8:05 PM FLAG MAKER Inhaled Oxygen Concentration - - Weight 69.9 kg (154 lb) 11/06/2024 8:28 PM FLAG MAKER Height 162.6 cm (5' 4 ) 11/06/2024 8:28 PM FLAG MAKER Body Mass Index 26.43 11/06/2024 8:28 PM FLAG MAKER Plan of Treatment Health Maintenance Due Date [...] MICROSCOPIC AND CULTURE STAT 11/06/2024 8:31 PM FLAG MAKER from Last 3 Months Results * Urinalysis reflex to microscopic and culture Urine (11/06/2024 8:31 PM FLAG MAKER) Color, ur Straw Yellow Comment:Testing performed by : [address] [address] Clarity, ur Clear Clear RU Comment:Testing performed by : [address] [address] Specific gravity, ur 1.005 1.003 - 1.030 RU Comment:Testing performed by : [address] [address] pH, urine 6.5 RU Comment: Interpretive Data ? Urine pH is affected by diet, medications, systemic acid-base disturbances, and renal tubular function. ??pH may affect urinary stone formation. ??For example, urine pH below 6.0 may help reduce the tendency for calcium phosphate stones and pH greater than 6.0 may reduce the tendency for uric acid stone formation. Source: [facility] [employer] Current Interpretive Data was last revised on 2017 Testing performed by: [facility], [address] [place] [address], [place]., [address] Protein, ur ql Negative Negative RU Comment:Testing performed by : [facility], [address] [place] [address], [place]., [address] Glucose, ur ql Negative Negative RU Comment:Testing performed by : [address], [place]., [address] Ketones, ur Negative Negative RU Comment:Testing performed by : [address], [place]., [address] Bilirubin, ur Negative Negative RU Comment:Testing performed by : [address], [place]., [address] Blood, ur Negative Negative RU Comment:Testing performed by : [address], [place]., [address] Urobilinogen, ur <2.0 <2.0 mg/dL RU Comment:Testing performed by : [address], [place]., [address] Nitrite, ur Negative Negative RU Comment:Testing performed by : [address], [place]., [address] Leukocyte esterase, ur Negative Negative RU Comment:Testing performed by : [address], [place]., [address] UA reflex comment Reflex conditions for microscopic UA and culture not met. RU Comment:Testing performed by : [address] [address] Urine 11/06/2024 8:31 PM FLAG MAKER 11/06/2024 8:33 PM FLAG MAKER us Dennis Wolff MD LAB MICROBIOLOGY - GENERAL ORDERABLES Final Result RU SOTO [address] [facility] [place] [address] from Last 3 Months Insurance [facility] Care Teams Bulk Delivery Driver Relationship Specialty Start Date End Date No, Physician PCP - General 05/20/21 Sarika Morrissey MD [address] [place] [phone] 12/09/20
--- OUTSIDE RECORDS SUMMARY | 2024-11-20 20:33 | XMS_ITS | Referral Summary ---
Author Organization [facility] Address [address] [place] [address] Care Team Providers Care Weatherization Operations Manager Name Role Phone Unavailable Primary Care Provider Unavailabl e Source Comments [facility],non-owned Affiliates and Associated Physician Practices is amultiple site organization consisting of ambulatory clinics and hospital sitesin [place], [place], [place] and [place]. This disclosure is being madepursuant to the Care Everywhere program and may not contain all information available regarding this patient. Last updated 18.[facility] [employer] Allergies Active Allergy Reactions Criticality Noted Date [...] Oxygen Saturation 96% 09/30/2019 1:20 AM MANAGER COMBINATION Inhaled Oxygen Concentration - - Weight 49.9 [...] if suspicious findings are present clinically. An [employer] certified facility. [facility] Breast Centers utilize [employer] as a reminder system to notify patients [...]
--- OUTSIDE RECORDS SUMMARY | 2024-11-20 20:33 | XMS_ITS | Continuity of Care Document ---
Author Organization [facility] Address [address] [place] [address] Phone Care Team Providers Care Battery Container Tester Name Role Phone No Information Unavailable Unavailable Medications Medication Instructions Dosage Effective Dates (start - stop) Status Comments No Drug Therapy Prescribed Advance Directives Directive Yes / No Effective Date File Name No Information Encounters Encounter Description Practice Location Reason(s) For Visit Diagnoses Date Provider Providers Copied on Encounter [facility], [address] [place] [address], [facility], [place] tel:[phone] No Information No Information Family History Family Member Type Diagnosis Age At Onset No Information Payers Payer name Insurance type Covered constitution party ID Authoriza tion(s) No Information Social History [...]
--- OUTSIDE RECORDS SUMMARY | 2024-11-20 20:33 | XMS_ITS | Patient Health Summary ---
Author Organization [facility] Address [address] [place] [address] Care Team Providers Care Fittings Tightener Name Role Phone Unavailable Primary Care Provider Unavailabl e Note from [facility],non-owned Affiliates and Associated Physician Practices is amultiple site organization consisting of ambulatory clinics and hospital sitesin [place], [place], [place] and [place]. This disclosure is being madepursuant to the Care Everywhere program and may not contain all information available regarding this patient. Last updated 18.[facility] Allergies * Prochlorperazine(Unknown) -Low Criticality Medications * [...] Oxygen Saturation 96% 09/30/2019 1:20 AM [employer] Inhaled Oxygen Concentration - - Weight 49.9 kg (110 lb) 04/07/2020 11:24 AM CDT Height 162.6 cm (5' 4 ) 08/01/2023 8:17 AM CDT Body Mass Index 18.88 04/07/2020 11:24 AM CDT Procedures * LUPUS ANTICOAGULANT PANEL(Performed 08/01/2023) Performed for SAB (spontaneous ) ([facility]) * BETA-2 GLYCOPROTEIN 1 ANTIBODY IGG/IGM PANEL(Performed 08/01/2023) Performed for SAB (spontaneous ) ([facility]) * CARDIOLIPIN ANTIBODY IGG/IGM PANEL(Performed 08/01/2023) Performed for SAB (spontaneous ) ([facility]) * COMPREHENSIVE METABOLIC PANEL(Performed 08/01/2023) Performed for SAB (spontaneous ) ([facility]) * CBC W/O DIFFERENTIAL(Performed 08/01/2023) Performed for SAB (spontaneous ) ([facility]) * SONOGRAM - COMPLETE(Performed 08/01/2023) Performed for Establish gestational age, ultrasound ([facility]) * MAMMO LEFT DIAGNOSTIC(Performed 04/15/2020) Performed for [...] - 38.4 Seconds 08/02/2023 12:02 PM CDT [facility] PT 12.5 12.1 - 14.8 Seconds 08/02/2023 12:02 PM [facility] INR 1.0 See Comment 08/02/2023 12:02 PM [facility] [place] Buffer 47.3 Seconds 023 12:02 PM [facility] [place] Phospholipid 44.6 Seconds 08/02/2023 12:02 PM [facility] [place] Delta 2.7 <8.0 Seconds 08/02/2023 12:02 PM [facility] Interpretation [place] Negative 08/02/2023 12:02 PM [facility] Comment:Up to 15-20% of mo ents [...] Heart MD LAB - HEMATOLOGY ORD ERABLES [facility] Organization Address City/State/ZIP Co de Phone Number [facility] [address] [address] LABORAT[facility] [address] [place] [id number], [facility] [phone] * CARDIOLIPIN ANTIBODY IGG/IGM PANEL (08/01/2023 8:56 AM CDT) Cardiolipin Antibody IgG <9 0 - 14 GPL U/mL 08/02/2023 4:11 PM CDT [facility] ([facility]) Comment: ?Negative: ?<15 ?Indeterminate: ? 15 - 20 ?Low-Med Positive: >20 - 80 ?High Positive: ? >80 Cardiolipin Antibody IgM 10 0 - 12 MPL U/mL 08/02/2023 4:11 PM CDT [facility] ([facility]) Comment: ?Negative: ?<13 ?Indeterminate: ? 13 - 20 ?Low-Med Positive: >20 - 80 ?High Positive: ? >80 Blood BLOOD SPECIMEN / Unknown Venipuncture / Unknown 08/01/2023 8:56 AM CDT 08/01/2023 9:15 AM CDT [facility]ative [facility] - 08/02/2023 4:11 PM CDT Performed at: ??01 - [facility] [address] [place], [place] ??[id number] Interpreter: Young Reed PhD, Phone: ??[phone] Kimmy Heart MD LAB - SEROLOGY ORDER REAL [facility] ([facility]) [address] [place] [address] * BETA-2 GLYCOPROTEIN 1 ANTIBODY IGG/IGM PANEL (08/01/2023 8:56 AM CDT) Beta-2 Glycoprotein I Antibody IgG <9 0 - 20 GPI IgG units 08/03/2023 3:35 AM CDT [facility] ([facility]) Comment: The reference interval reflects a 3SD or 99th percentile interval, which is thought to represent a potentially clinically significant result in accordance with the International Consensus Statement on the classification criteria for definitive antiphospholipid syndrome (APS). J Thromb Haem 2006;4:295-306. Beta-2 Glycoprotein I Antibody IgM 9 0 - 32 GPI IgM units 08/03/2023 3:35 AM CDT [facility] ([facility]) Comment: The reference interval reflects a 3SD or 99th percentile interval, which is thought to represent a potentially clinically significant result in accordance with the International Consensus Statement on the classification criteria for definitive antiphospholipid syndrome (APS). J Thromb Haem 2006;4:295-306. Blood BLOOD SPECIMEN / Unknown Venipuncture / Unknown 08/01/2023 8:56 AM CDT 08/01/2023 9:15 AM CDT [facility] ([facility]) - 08/03/2023 3:35 AM CDT Performed at: ??01 - [address] ??[id number] Interpreter: Dylon Yap MD, Phone: ??[phone] Kimmy Heart MD LAB - CHEMISTRY [facility] Organization Address City/State/ZIP Co de Phone Number [facility] ([facility]) [address] [place] [address] * (ABNORMAL) CBC W/O DIFFERENTIAL (08/01/2023 8:56 AM CDT) [facility] WBC 9.7 4.4 - 10.7 x10E9/L 08/01/2023 9:24 AM CDT [facility] RBC 3.91 3.80 - 5.20 x10E12/L 08/01/2023 9:24 AM CDT [facility] Hemoglobin 12.1 12.0 - 15.6 gm/dL 08/01/2023 9:24 AM CDT [facility] Hematocrit 36.0 35.9 - 45.5 % 08/01/2023 9:24 AM CDT [facility] MCV 92.1 80.7 - 98.3 fl 08/01/2023 9:24 AM CDT [facility] MCH 30.9 26.7 - 34.0 pg 08/01/2023 9:24 AM CDT [facility] MCHC 33.6 30.8 - 35.9 gm/dL 08/01/2023 9:24 AM CDT [facility] Platelet Count 380 153 - 416 x10E9/L 08/01/2023 9:24 AM CDT [facility] RDW-CV 13.4 12.1 - 14.9 % 08/01/2023 9:24 AM CDT [facility] MPV 9.0(L) 9.4 - 12.9 fl 08/01/2023 9:24 AM CDT [facility] Blood BLOOD SPECIMEN / Unknown Venipuncture / Unknown 08/01/2023 8:56 AM CDT 08/01/2023 9:15 AM CDT Kimmy Heart MD LAB - HEMATOLOGY ORD ERABLES [facility] [address] [place] [address] * COMPREHENSIVE METABOLIC PANEL (08/01/2023 8:56 AM CDT) Only the most recent of5 resultswithin the time period is included. Glucose 92 70 - 105 mg/dL 08/01/2023 9:47 AM CDT [facility] Sodium 139 136 - 145 mmol/L 08/01/2023 9:47 AM CDT [facility] Potassium 3.8 3.5 - 5.1 mmol/L 08/01/2023 9:47 AM CDT [facility] Chloride 104 98 - 107 mmol/L 08/01/2023 9:47 AM CDT [facility] CO2 28 22 - 29 mmol/L 08/01/2023 9:47 AM CDT [facility] Calcium 9.5 8.4 - 10.4 mg/dL 08/01/2023 9:47 AM CDT [facility] Anion Gap 7 6 - 16 mmol/L 08/01/2023 9:47 AM CDT [facility] BUN 7 5.3 - 18.7 mg/dL 08/01/2023 9:47 AM CDT [facility] Creatinine 0.75 0.57 - 1.11 mg/dL 08/01/2023 9:47 AM CDT [facility] Alkaline Phosphatase 49 40 - 150 U/L 08/01/2023 9:47 AM CDT [facility] ALT 9 0 - 55 U/L 08/01/2023 9:47 AM CDT [facility] AST 20 5 - 34 U/L 08/01/2023 9:47 AM CDT [facility] Protein Total 7.3 6.4 - 8.3 gm/dL 08/01/2023 9:47 AM CDT [facility] Albumin 4.0 3.4 - 5.0 gm/dL 08/01/2023 9:47 AM CDT [facility] Bilirubin Total 0.3 0.2 - 1.2 mg/dL 08/01/2023 9:47 AM CDT [facility] eGFR by CKD-EPI >90 >=90 mL/min/1.7 3 m2 08/01/2023 9:47 AM CDT [facility] Blood BLOOD SPECIMEN / Unknown Venipuncture / Unknown 08/01/2023 8:56 AM CDT 08/01/2023 9:15 AM CDT Kimmy Heart MD LAB - CHEMISTRY [facility] Organization Address [facility]/State/[facility] Co de Phone Number [facility] [address] [place] [address] * SONOGRAM - COMPLETE (08/01/2023 7:52 AM CDT) Anatomical Region Laterality Modality Other 08/01/2023 7:52 AM CDT Narrative 08/01/2023 9:33 AM CDT ? [facility] ?[facility] ?PHONE: ??FAX: Pat. Name: ?JEANINE MONTOYA Pat. No: ?[id number] Study Date: ?? 08/01/2023 ??7:52am , Age: ? 1980, 43 Pregnancies: ?? 14, Para 2-1-10-3 Height: ? 64 in Weight: ? 110 lb LMP: ?06/06/2023 GA by LMP: ?08w0d GA by US: ? 06w4d ?? DOMENICA: 03/22/2024 GA Selected: ??06w4d (Sonographic) DOMENICA: ?03/22/2024 Referring MD: Narciso, , [facility] Supervising Editor News Reel: ??Poonam Mendez, RDMS, RDCS CPT4: ? 31142,94518 BMI: ?18.88 Hist/Ind: ? Dating ?Advanced maternal age, multigravida ?Chronh's ?Multiple SAB (possibly x 10) ?MJ use MEASUREMENTS & AGE ? GROWTH EVALUATION Measurement ??GA ? Range ? Srce %for GA Ratios ----- ---- ------- CRL ??0.7 cm 06w4d ([id number]) Hadl CRL 50% GA for sonogram 06w4d ([id number]) based on (CRL) Avg ? PROCEDURE, TECHNIQUE [...] early failed . Patient was sent to [facility] clinic for further management. RECOMMEND: Findings were communicated to provider care team at HROB clinic at the time of the scan. Follow up as clinically indicated Vincenzo Blood MD <Electronic Signature> ??08/01/2023 09:32am Eulalio Lau MD [facility] ORDERABLES * MAMMO LEFT DIAGNOSTIC (04/15/2020 2:21 PM CDT) Anatomical Region Laterality Modality Breast Left Mammography 04/15/2020 2:19 PM CDT Impressions 04/16/2020 4:12 PM CDT Successful ultrasound-guided left breast biopsy and left axillary lymph node biopsy *Reading Radiologist: Jeffrey Ramirez on 04/16/2020 at 4:12 PM Narrative 04/16/2020 4:12 PM CDT EXAM: US BREAST LEFT BIOPSY*[id number] INDICATION: Other abnormal and inconclusive findings on [...] 2:22 PM CDT EXAM: US BREAST LEFT BIOPSY*[id number] INDICATION: Other abnormal and inconclusive findings on [...] Case Report Surgical Pathology Report ? Case: [id number] ? Authorizing Provider: ??Lucas, Kandi Powell, DO ?Collected: ? 04/15/2020 01:56 PM ? Ordering Location: ? [facility] ? Received: ?04/16/2020 08:50 AM ? Pathologist: ? Cynthia Fortune MD ? Specimens: ?? A) - Breast Core Biopsy, Left Breast 10:00, 1cmfn ? B) - Breast Core Biopsy ? 04/21/2020 11:33 AM CDT [facility] Final Diagnosis Breast, left, 10 o'clock, 1 cm from nipple, ultrasound-guided needle biopsy: - Focal proliferative fibrocystic changes - No evidence of malignancy - See description Lymph node, left axilla, ultrasound-guided needle biopsy: - Benign lymph node with tattoo pigment - No evidence of malignancy BECK/eric 04/21/2020 11:33 AM [facility] Gross Description Received in two [...] is 1 second. AGUSTÍN/lexx 04/21/2020 11:33 AM [facility] Microscopic Description Histologic sections show [...] evidence of malignancy. BECK/eric 04/21/2020 11:33 AM [facility] Disclaimer All histochemical and/or immunohistochemical results are interpreted with controls that demonstrate appropriate staining reactions before reporting results. Note on use of immunocytochemistry reagents: This test was developed and its performance characteristic determined by [facility], Department of Laboratory Medicine. It has [...] interpreted with caution. 04/21/2020 11:33 AM CDT [facility] Embedded Images 04/21/2020 11:33 AM CDT [facility] Pathology/Cytology SPECIMEN FROM BREAST OBTAINED BY CORE NEEDLE BIOPSY / Unknown 04/15/2020 1:56 PM CDT 04/16/2020 8:50 AM CDT Miscellaneous samples (specimen) SPECIMEN FROM BREAST OBTAINED BY CORE NEEDLE BIOPSY / Unknown 04/15/2020 1:57 PM CDT 04/16/2020 8:50 AM CDT Kandi Zavala DO LAB - PATHOLOGY/CYTO LOGY ORDERABLES [facility] [address] [place] [address] * US BREAST BILATERAL LTD( most commonly [...] if suspicious findings are present clinically. An [employer] certified facility. [facility] utilize [employer] as a reminder system to notify patients of their next recommended mammograms. Edited by Steff Gonzalez on 04/09/2020 2:52 PM *Reading Radiologist: Zhou Nicholas on 04/09/2020 at 2:58 PM Kandi Zavala DO MAMMO ORDERABLES * PT PTT PANEL (09/29/2019 11:54 PM [employer]) PT 10.3 9.5 - 11.6 sec 09/30/2019 12:50 AM [employer] [facility] INR 1.0 0.9 - 1.1 09/30/2019 12:50 AM [facility] PTT 25.4 21.0 - 32.0 sec 09/30/2019 12:50 AM [facility] Blood BLOOD SPECIMEN / Unknown Venipuncture / Unknown 09/29/2019 11:54 PM [employer] 09/30/2019 12:01 AM [employer] Narrative [facility] - 09/30/2019 12:50 AM [employer] Conventional Warfarin Anticoagulant Therapy: INR Reference Range: ??2.0-3.0 Intensive Warfarin Anticoagulant Therapy: INR Reference Range: ? 2.5-3.5 Heparin Therapeutic Range for PTT: 50.5 - 74.3 seconds. Kasie Rodriguez MD LAB - COAGULATION OR DERABLES [facility] [address] [place] [address] * (ABNORMAL) CBC W AUTO DIFFERENTIAL (09/29/2019 11:54 PM [employer]) Only the most recent of5 resultswithin the time period is included. WBC 7.5 4.4 - 10.7 x10E9/L 09/30/2019 12:04 AM [facility] WBC Corrected 09/30/2019 12:04 AM [facility] RBC 3.18(L) 3.80 - 5.20 x10E12/L 09/30/2019 12:04 AM [facility] Hemoglobin 9.9(L) 12.0 - 15.6 gm/dL 09/30/2019 12:04 AM [facility] Hematocrit 29.3(L) 35.9 - 45.5 % 09/30/2019 12:04 AM [facility] MCV 92.1 80.7 - 98.3 fl 09/30/2019 12:04 AM [facility] MCH 31.1 26.7 - 34.0 pg 09/30/2019 12:04 AM [facility] MCHC 33.8 30.8 - 35.9 gm/dL 09/30/2019 12:04 AM [facility] Platelet Count 233 153 - 416 x10E9/L 09/30/2019 12:04 AM [facility] RDW-CV 12.7 12.1 - 14.9 % 09/30/2019 12:04 AM [facility] MPV 8.7(L) 9.4 - 12.9 fl 09/30/2019 12:04 AM [facility] Neutrophils % 54.5 44.0 - 73.0 % 09/30/2019 12:04 AM [facility] Lymphocytes % 34.3 20.0 - 43.0 % 09/30/2019 12:04 AM [facility] Monocytes % 8.5 5.0 - 13.0 % 09/30/2019 12:04 AM [facility] Eosinophils % 2.1 0.0 - 6.0 % 09/30/2019 12:04 AM [facility] Basophils % 0.5 0.0 - 2.0 % 09/30/2019 12:04 AM [facility] Immature Granulocytes 0.1 0 - 1 % 09/30/2019 12:04 AM [facility] Neutrophil Absolute 4.08 2.01 - 7.14 x10E9/L 09/30/2019 12:04 AM [facility] Lymphocytes Absolute 2.57 1.07 - 3.94 x10E9/L 09/30/2019 12:04 AM [facility] Monocytes Absolute 0.64 0.26 - 1.07 x10E9/L 09/30/2019 12:04 AM [facility] Eosinophils Absolute 0.16 0 - 0.47 x10E9/L 09/30/2019 12:04 AM [facility] Basophils Absolute 0.04 0 - 0.08 x10E9/L 09/30/2019 12:04 AM [facility] Immature Granulocytes Absolute 0.01 0.00 - 0.06 x10E9/L 09/30/2019 12:04 AM [facility] nRBC Auto 0 /100 WBC 09/30/2019 12:04 AM [facility] Blood BLOOD SPECIMEN / Unknown Venipuncture / Unknown 09/29/2019 11:54 PM [employer] 09/30/2019 12:01 AM [facility] Kasie Rodriguez MD LAB - HEMATOLOGY ORD ERABLES [facility] [address] [place] [id number] * HCG BETA BLOOD QUANTITATIVE (09/29/2019 11:54 PM [facility]) Only the most recent of3 resultswithin the time period is included. hCG Quantitative <1.20 mIU/mL 09/30/20 19 2:11 AM [facility] Blood BLOOD SPECIMEN / Unknown Venipuncture / Unknown 09/29/2019 11:54 PM [employer] 09/30/2019 12:01 AM [employer] Narrative [facility] - 09/30/2019 2:11 AM [employer] ? hCG Reference Range, mIU/mL: ? Males [...] Rodriguez MD LAB - CHEMISTRY DANIELLE FRANKLIN [facility] [address] [place] [address] * MAGNESIUM BLOOD (09/29/2019 11:54 PM [employer]) Magnesium 1.8 1.6 - 2.6 mg/dL 09/30/2019 12:21 AM [employer] [facility] Blood BLOOD SPECIMEN / Unknown Venipuncture / Unknown 09/29/2019 11:54 PM [employer] 09/30/2019 12:01 AM [employer] Kasie Rodriguez MD LAB - CHEMISTRY DANIELLE FRANKLIN Performing Organization Address City/[facility]/ZIP Co de Phone Number [facility] [place] [address] * LIPASE BLOOD (09/29/2019 11:54 PM [employer]) Lipase 12 8 - 78 U/L 09/30/2019 12:21 AM [employer] [facility] Blood BLOOD SPECIMEN / Unknown Venipuncture / Unknown 09/29/2019 11:54 PM [employer] 09/30/2019 12:01 AM [employer] Kasie Rodriguez MD LAB - CHEMISTRY DANIELLE FRANKLIN Performing Organization Address [facility] Co de Phone Number [facility] [address] [place] [address] * LACTIC ACID BLOOD (09/29/2019 11:54 PM [employer]) Lactic Acid 0.52 0.5 - 2.2 mmol/L 09/30/2019 12:16 AM [employer] [facility] Blood BLOOD SPECIMEN / Unknown Venipuncture / Unknown 09/29/2019 11:54 PM [employer] 09/30/2019 12:01 AM [employer] Kasie Rodriguez MD LAB - CHEMISTRY DANIELLE FRANKLIN Performing Organization Address [facility] Co de Phone Number [facility] [place] [phone] * XR SACRUM AND COCCYX (08/13/2017 10:05 AM CDT) Anatomical Region Laterality Modality Spine Radiographic Giovana ging 08/13/2017 10:1 8 AM CDT Narrative 08/13/2017 10:21 AM CDT EXAM: XR SACRUM AND COCCYX*[id number] INDICATION: Unspecified injury of lower back, initial [...] MD - 08/13/2017 EXAM: XR SACRUM AND COCCYX*[id number] INDICATION: Unspecified injury of lower back, initial [...] Bilateral sacroiliac joints are intact. Christel Voss APRN-FOREST LOGISTICS MANAGER DIAGNOSTIC IMAGI NG ORDERABLES * HCG URINE QUALITATIVE - POINT OF CARE (IP) (08/13/2017 8:25 AM CDT) Only the most recent of4 resultswithin the time period is included. HCG Qual Urine Negative Negative [facility] POCT TESTING QC Verified Yes Yes [facility] POC T TESTING Urine URINE / Unknown 08/13/2017 8 :25 AM CDT Christel Voss APRN-FOREST LOGISTICS MANAGER LAB - POINT OF C ARE ORDERABLES [facility] POCT TESTING [facility] [place] Tavares. [address] * US OB 14+ WKS SINGLE GEST (12/12/2015 10:22 AM [employer]) Anatomical Region Laterality Modality Abdomen Ultrasound 12/12/2015 10:2 2 AM [employer] Impressions 12/12/2015 10:24 AM [employer] Intrauterine at 15 weeks 6 day gestation with heart rate 153 beats per minute. Followup should be performed as needed Narrative 12/12/2015 10:24 AM [employer] Ultrasound OB greater than 14 weeks transabdominal [...] * SLIDE SCAN HEMATOLOGY (12/12/2015 9:46 AM [employer]) Pathologist [facility] Platelet Estimation Normal Normal, Adequate platelets 12/12/2015 10:24 AM [employer] [facility] Comment:Platelet estimate = 180-240 Blood BLOOD SPECIMEN / Unknown 12/12/2015 9:46 AM [employer] 12/12/2015 9:59 AM [employer] Jorge Clifford MD LAB - HEMATOLOGY ORD ERABLES [facility] [address] [place] [address] * (ABNORMAL) URINALYSIS ROUTINE W/REFLEX TO CULTURE (12/12/2015 9:20 AM [employer]) Only the most recent of2 resultswithin the time period is included. Color UA Yellow Straw, Yellow, Dark Yellow 12/12/2015 9:35 AM [employer] [facility] Clarity UA Clear 12/12/2015 9:35 AM [facility] Specific [place] UA 1.002(L) 1.005 - 1.030 12/12/2015 9:35 AM [facility] pH UA 7.0 5.0 - 8.0 pH 12/12/2015 9:35 AM [facility] Protein UA Negative Negative 12/12/2015 9:35 AM [facility] Blood UA Negative Negative 12/12/2015 9:35 AM [facility] Leukocyte UA Negative Negative 12/12/2015 9:35 AM [facility] Nitrite UA Negative Negative 12/12/2015 9:35 AM [facility] Glucose UA Negative Negative 12/12/2015 9:35 AM [facility] Ketone UA Negative Negative 12/12/2015 9:35 AM [facility] Bilirubin UA Negative Negative 12/12/2015 9:35 AM [facility] Urobilinogen UA 0.2 0.1 - 1.0 EU/dL 12/12/2015 9:35 AM [facility] Reflex Status Culture not indicated 12/12/2015 9:35 AM [facility] Urine URINE SPECIMEN OBTAINED BY CLEAN CATCH PROCEDURE / Unknown 12/12/2015 9:20 AM [employer] 12/12/2015 9:29 AM [employer] Jorge Clifford MD LAB - URINALYSIS ORD ERABLES [facility] [address] [place] [address] * Stone Protocol CT (08/10/2015 [...] PANEL (CALCIUM TOTAL) (08/04/2015 10:59 AM CDT) [facility] Glucose 79 74 - 106 mg/dL 08/04/2015 11:34 AM [facility] Sodium 140 136 - 145 mmol/L 08/04/2015 11:34 [facility] Potassium 3.5 3.5 - 5.1 mmol/L 08/04/2015 11:34 AM [facility] Chloride 107 98 - 107 mmol/L 08/04/2015 11:34 AM [facility] CO2 28 22 - 31 mmol/L 08/04/2015 11:34 AM [facility] Calcium 8.7 8.5 - 10.1 mg/dL 08/04/2015 11:34 AM [facility] Anion Gap 5 5 - 20 mmol/L 08/04/2015 11:34 AM [facility] BUN 12 7 - 21 mg/dL 08/04/2015 11:34 AM [facility] Creatinine 0.66 0.50 - 1.30 mg/dL 08/04/2015 11:34 AM [facility] eGFR by MDRD >60 >60 mL/min/1.7 3m2 08/04/2015 11:34 AM [facility] eGFR by MDRD >60 >60 mL/min/1.7 3m2 08/04/2015 11:34 AM CDT [facility] Blood BLOOD SPECIMEN / Unknown Venipuncture / Unknown 08/04/2015 10:59 AM CDT 08/04/2015 11:10 AM CDT Kasie Rodriguez MD LAB - CHEMISTRY ORDE RABLES Performing Organization Address City/[facility]/ZIP Co de Phone Number [facility] [address] [place], [place] [id number] * HCG URINE QUALITATIVE (08/04/2015 10:26 AM CDT) hCG Qualitative Urine Negative Negative 08/04/2015 11:28 AM CDT [facility] Urine URINE / Unknown Collection / Unknown 08/04/2015 10:26 AM CDT 08/04/2015 11:10 AM CDT Kasie Rodriguez MD LAB - URINALYSIS ORD ERABLES Performing Organization Address [facility] Co de Phone Number [facility] [address] [place] [address] * URINALYSIS ROUTINE AUTO (08/04/2015 10:25 AM CDT) Color UA Yellow Straw, Yellow, Dark Yellow 08/04/2015 10:36 AM T [facility] Clarity UA Clear 08/04/2015 10:36 AM T [facility] Specific [place] UA 1.015 1.005 - 1.030 08/04/2015 10:36 AM T [facility] pH UA 6.0 5.0 - 8.0 pH 08/04/2015 10:36 AM T [facility] Protein UA Negative Negative 08/04/2015 10:36 AM CDT [facility] Blood UA Negative Negative 08/04/2015 10:36 AM T [facility] Leukocyte UA Negative Negative 08/04/2015 10:36 AM T [facility] Nitrite UA Negative Negative 08/04/2015 10:36 AM T [facility] Glucose UA Negative Negative 08/04/2015 10:36 AM T [facility] Ketone UA Negative Negative 08/04/2015 10:36 AM CDT [facility] Bilirubin UA Negative Negative 08/04/2015 10:36 AM CDT [facility] Urobilinogen UA 0.2 0.1 - 1.0 EU/dL 08/04/2015 10:36 AM CDT [facility] Urine URINE SPECIMEN OBTAINED BY CLEAN CATCH PROCEDURE / Unknown 08/04/2015 10:25 AM CDT 08/04/2015 10:28 AM CDT Kasie Rodriguez MD LAB - URINALYSIS ORD ERABLES [facility] [address] [address] * MRI SPINE CERVICAL NON CONTRAST (06/25/2015 2:05 PM CDT) Anatomical Region Laterality Modality Pelvis Magnetic Resonan ce 06/25/2015 2:21 PM CDT Impressions 06/25/2015 3:16 PM CDT Normal MRI cervical spine. Edited by Michlel Jesus on 06/25/2015 3:06 PM Narrative 06/25/2015 [...] (Bezet) 402 ms [facility] MUSE Calculated P [place] 61 degrees [facility] MUSE Calculated R [place] 66 degrees [facility] MUSE Calculated T [place] 52 degrees [facility] MUSE Interpretation EKG Normal sinus rhythm Normal ECG No previous ECGs available Confirmed by MD KELI, LORI Ponce (3) on 06/26/2015 8:30:40 AM [facility] 06/24/2015 8:36 PM CDT 06/26/2015 8:30 AM CDT Ankit Astorga MD ECG ORDERABLE S [facility]
[2024-11-20] MEDS: IRON SUCROSE COMPLEX 400 MG in SODIUM CHLORIDE 0.9% IV 250 ML 108 MG IVPB (21:52)
--- NOTE | 2024-11-20 23:59 | PC.NURSE ---
Called Dr. Shearer, update on pt, reactive NST, blood pressure, and iron transfusion. Orders received to discharge pt with instructions to collect urine to Tuesday, 11/21 at 2030, return urine to unit, keep next scheduled appointment, and when to return to the unit.
[2024-11-21] VITALS: PULSE 88; O2SAT 100
[2024-11-21 00:01] VITALS: BP 119/70; PULSE 82
[2024-11-21 00:05] VITALS: PULSE 78; O2SAT 100
--- NOTE | 2024-11-21 00:17 | PC.NURSE ---
Pt discharged with instructions to collect urine to Tuesday, 11/21 2029, return urine to unit, keep next scheduled appointment and when to return to the unit, pt verbalizes understanding.
== END 2024-11-21 00:17 | disposition home or self-care (01) ==
LOC: ANHOBOP 20:31 → ANHOBPP 21:00
PROVIDERS: Visit Provider Obstetrics & Gynecology Gynecology
DX: O13.9 Gestational [pregnancy-induced] hypertension without significant proteinuria, unspecified trimester (principal)
CPT/HCPCS: 59025; 96365; 96366; 99199; J1756; J7050

== ENCOUNTER 2024-11-21 20:59 | Outpatient (NON) | payer OTHER, SELFPAY ==
--- OUTSIDE RECORDS SUMMARY | 2024-11-21 21:08 | XMS_ITS | Encounter Summary ---
Author Organization [facility] Address [address] [place] [address] Care Team Providers Care Plasterer Journeyman Name Role Phone Unavailable Primary Care Provider [...] declined 06/12/2019 How often do you attend mandaen or alevism serv ices? Patient declined 06/12/2019 Do you belong to any clubs o r organizations such as mandaen groups, unions, fraternal or athletic groups, or [...]
--- OUTSIDE RECORDS SUMMARY | 2024-11-21 21:08 | XMS_ITS | Referral Summary ---
Author Organization [facility] Address [address] [place] [phone] Phone Care Team Providers Care Rate Examiner Name Role Phone No, Physician Primary Care Provider [phone] Sarika Morrissey MD Unavailable [phone] Encounters Date Type Department Care Team Description 11/06/2024 7:49 PM FIREMAN - 11/06/2024 9:18 PM [email or web address] Emergency [facility] OB Emergency Department [facility] [place] [address] Rob Abdul MD Pelvic pain affecting in third trimester, antepartum (Primary Dx); 35 weeks gestation of Discharge Disposition: Discharge to home or self care from Last 3 Months Allergies Active Allergy Reactions Criticality Noted Date Comments Prochlorperazine Mental status changes Low 12/09/19 21 Medications vit 52-ybvn-dpodc-dha 27mg iron- 800 mcg-250 mg capsule Take [...] any time in the past 12 m [facility], were you homeless or living in a fpc (including now)? No 11/06/2024 Personal Safety Answer [...] on file Legal Sex Female 9:12 PM FIREMAN Gender Identity Not on file Sexual Orientation Not on file Last Filed Vital Signs Vital Sign Reading Time Taken Comments Blood Pressure 122/74 11/06/2024 8:05 PM FIREMAN Pulse 113 11/06/2024 8:05 PM FIREMAN Temperature 36.7 C (98.1 F) 11/06/2024 8:05 PM FIREMAN Respiratory Rate 18 11/06/2024 8:05 PM FIREMAN Oxygen Saturation 100% 11/06/2024 8:05 PM FIREMAN Inhaled Oxygen Concentration - - Weight 69.9 kg (154 lb) 11/06/2024 8:28 PM FIREMAN Height 162.6 cm (5' 4 ) 11/06/2024 8:28 PM FIREMAN Body Mass Index 26.43 11/06/2024 8:28 PM FIREMAN Plan of Treatment Not on file Procedures Procedure Name Priority Date/Time Associated Diagnosis Comments URINALYSIS AND REFLEX TO MICROSCOPIC AND CULTURE STAT 11/06/2024 8:31 PM FIREMAN from Last 3 Months Results * Urinalysis reflex to microscopic and culture Urine (11/06/2024 8:31 PM FIREMAN) Color, ur Straw Yellow Comment:Testing performed by : [address] [address] Clarity, ur Clear Clear RU Comment:Testing performed by : [address] [address] Specific gravity, ur 1.005 1.003 - 1.030 RU Comment:Testing performed by : [address] [address] pH, urine 6.5 RU Comment: Interpretive Data U rine pH is affected by diet, medications, systemic acid-base disturbances, and renal tubular function. pH may affect urinary stone formation. For example, urine pH below 6.0 may help reduce the tendency for calcium phosphate stones and pH greater than 6.0 may reduce the tendency for uric acid stone formation. Source: [facility] [employer] Current Interpretive Data was last revised on 2017 Testing performed by: [facility], [address] [place] [address]., [address] Protein, ur ql Negative Negative RU Comment:Testing performed by : [address] [address] Glucose, ur ql Negative Negative RU Comment:Testing performed by : [address], [place]., [address] Ketones, ur Negative Negative RU Comment:Testing performed by : [address] [address] Bilirubin, ur Negative Negative RU Comment:Testing performed by : [address], [place]., [address] Blood, ur Negative Negative RU Comment:Testing performed by : [address], [place]., [address] Urobilinogen, ur <2.0 <2.0 mg/dL RU Comment:Testing performed by : [address] [address] Nitrite, ur Negative Negative RU Comment:Testing performed by : [address] [address] Leukocyte esterase, ur Negative Negative RU Comment:Testing performed by : [address] [address] UA reflex comment Reflex conditions for microscopic UA and culture not met. RU Comment:Testing performed by : [address] [address] Urine 11/06/2024 8:31 PM FIREMAN 11/06/2024 8:33 PM FIREMAN us Dennis Wolff MD LAB MICROBIOLOGY - GENERAL ORDERABLES Final Result RU [id number] [facility] [place] [address] from Last 3 Months Insurance [facility] Care Teams Rate Examiner Relationship Specialty Start Date End Date No, Physician PCP - General 05/20/21 Sarika Morrissey MD [address] [place] [phone] 12/09/20
--- OUTSIDE RECORDS SUMMARY | 2024-11-21 21:08 | XMS_ITS | Encounter Summary ---
Author Organization [facility] Address [address] [place] [address] Care Team Providers Care Aquatic Instructor Name Role Phone Unavailable Primary Care Provider Unavailabl e Encounter Details Date Type Department Care Team (Late st Contact Info) Description 11/20/2024 External Device Data ST[place] ABSTRACTION Provider, Abstract NO ADDRESS ON [...] declined 06/12/2019 How often do you attend baptism or sabianist serv ices? Patient declined 06/12/2019 Do you belong to any clubs o r organizations such as baptism groups, unions, fraternal or athletic groups, or [...] 1 04/26/2022 (RETIRED) In the last 12 tue ths, was there a time when you did not have a steady place to sleep or slept in a long-term (including now)? No 04/26/2022 Feeling Safe Answer Date Recorded Are you in a relationship wi th someone who hurts you emotionally and/or physically? No 04/03/2023 Comments Yes Sex and Gender Information Value Date Recorded Sex Assigned at Not on file Legal Sex Female 11:21 AM CDT Gender Identity Not on file Sexual Orientation Not on file documented as of this encounter Plan of Treatment Not on file documented as of this encounter Visit Diagnoses Not on filedocumented in this encounter
--- OUTSIDE RECORDS SUMMARY | 2024-11-21 21:08 | XMS_ITS | Encounter Summary ---
Author Organization [facility] Address [address] [place] [address] Care Team Providers Care Front Office Supervisor Name Role Phone Unavailable Primary Care [...] declined 06/12/2019 How often do you attend confucianism or faith serv ices? Patient declined 06/12/2019 Do you belong to any clubs o r organizations such as confucianism groups, unions, fraternal or athletic groups, or [...]
--- OUTSIDE RECORDS SUMMARY | 2024-11-21 21:08 | XMS_ITS | Encounter Summary ---
Author Organization [facility] Address [address] [place] [address] Care Team Providers Care Lens Mold Setter Name Role Phone Unavailable Primary Care Provider [...] declined 06/12/2019 How often do you attend mandaeism or methodist serv ices? Patient declined 06/12/2019 Do you belong to any clubs o r organizations such as mandaeism groups, unions, fraternal or athletic groups, or [...]
--- OUTSIDE RECORDS SUMMARY | 2024-11-21 21:08 | XMS_ITS | Clinical Summary ---
Author Organization [facility] Virtual Care Address [address] [place] [phone] Phone Care Team Providers Care Software Test Specialist Name Role Phone No, Physician Primary Care Provider [phone] Sarika Morrissey MD Unavailable [phone] Allergies Active Allergy Reactions Criticality Noted Date Comments Prochlorperazine Mental status changes Low 12/09/19 21 Medications vit 10-trwq-ylyno-dha 27mg iron- 800 mcg-250 mg capsule Take [...] Department Care Team Description 11/06/2024 7:49 PM ELECTRON BEAM WELDER - 11/06/2024 9:18 PM ELECTRON BEAM WELDER Emergency [facility] OB Emergency Department [address] [place] [address] Rob Abdul MD Pelvic pain affecting in third trimester, antepartum (Primary Dx); 35 weeks gestation of Discharge Disposition: Discharge to home or self care from Last 3 Months Surgical History Surgery Date Site/Laterality Comments INDUCED UPPER GASTROINTESTINAL ENDOSCOPY SECTION Medical History Medical History Date Comments Meningitis Crohn's colitis (CMS/HCC) (HCC) Anxiety Yanique-Danlos syndrome Crohn's disease (CMS/HCC) ([facility]) Adhd Social History Tobacco Use Types Packs/Day [...] any time in the past 12 m [facility], were you homeless or living in a [...] on file Legal Sex Female 9:12 PM ELECTRON BEAM WELDER Gender Identity Not on file Sexual Orientation [...] Estimated Date of Delivery 11/06/2024 - Present (11/21/2024) 12/09/2024 (set by Marita Trimble, RN on 11/06/2024 based on Patient Reported) Dating Summary Based On DOMEN[place] Diff Patient Reported 12/09/2024 Working Vitals Pregravid Weight Height TWG (As of 11/21/2024) Pregrav id BMI 162.6 cm (5' 4 ) Date GA Fund Present FHR Mvmt BP Weight Edema Alb Glu Ket Dil/ Eff/Sta 35w2d Inpatient data not displayed here. See encounter summary. Last Filed Vital Signs Vital Sign Reading Time Taken Comments Blood Pressure 122/74 11/06/2024 8:05 PM ELECTRON BEAM WELDER Pulse 113 11/06/2024 8:05 PM ELECTRON BEAM WELDER Temperature 36.7 C (98.1 F) 11/06/2024 8:05 PM ELECTRON BEAM WELDER Respiratory Rate 18 11/06/2024 8:05 PM ELECTRON BEAM WELDER Oxygen Saturation 100% 11/06/2024 8:05 PM ELECTRON BEAM WELDER Inhaled Oxygen Concentration - - Weight 69.9 kg (154 lb) 11/06/2024 8:28 PM ELECTRON BEAM WELDER Height 162.6 cm (5' 4 ) 11/06/2024 8:28 PM ELECTRON BEAM WELDER Body Mass Index 26.43 11/06/2024 8:28 PM ELECTRON BEAM WELDER Plan of Treatment Health Maintenance Due Date [...] MICROSCOPIC AND CULTURE STAT 11/06/2024 8:31 PM ELECTRON BEAM WELDER from Last 3 Months Results * Urinalysis reflex to microscopic and culture Urine (11/06/2024 8:31 PM ELECTRON BEAM WELDER) Color, ur Straw Yellow Comment:Testing performed by : [address] [address] Clarity, ur Clear Clear RU Comment:Testing performed by : [address] [address] Specific gravity, ur 1.005 1.003 - 1.030 RU Comment:Testing performed by : [address] [address] pH, urine 6.5 RU Comment: Interpretive Data U rine pH is affected by diet, medications, systemic acid-base disturbances, and renal tubular function. pH may affect urinary stone formation. For example, urine pH below 6.0 may help reduce the tendency for calcium phosphate stones and pH greater than 6.0 may reduce the tendency for uric acid stone formation. Source: [facility] Current Interpretive Data was last revised on 2017 Testing performed by: [facility], [address] [place] [address], [place]., [address] Protein, ur ql Negative Negative RU Comment:Testing performed by : [facility], [address] [place] [address], [place]., [address] Glucose, ur ql Negative Negative RU Comment:Testing performed by : [facility], [address] [place] [address], [place]., [address] Ketones, ur Negative Negative CERMELVIN Comment:Testing performed by : [facility], [address] [place] [address], [place]., [address] Bilirubin, ur Negative Negative RU Comment:Testing performed by : [address], [place]., [address] Blood, ur Negative Negative RU Comment:Testing performed by : [address], [place]., [address] Urobilinogen, ur <2.0 <2.0 mg/dL RU Comment:Testing performed by : [address], [place]., [address] Nitrite, ur Negative Negative RU Comment:Testing performed by : [address], [place]., [address] Leukocyte esterase, ur Negative Negative RU Comment:Testing performed by : [address], [place]., [address] UA reflex comment Reflex conditions for microscopic UA and culture not met. RU Comment:Testing performed by : [address], [place]., [address] Urine 11/06/2024 8:31 PM ELECTRON BEAM WELDER 11/06/2024 8:33 PM ELECTRON BEAM WELDER us Dennis Wolff MD LAB MICROBIOLOGY - GENERAL ORDERABLES Final Result RU SOTO [address] [facility] [place] [address] from Last 3 Months Insurance [facility] Care Teams Software Test Specialist Relationship Specialty Start Date End Date No, Physician PCP - General 05/20/21 Sarika Morrissey MD [address] [place] [phone] 12/09/20
--- OUTSIDE RECORDS SUMMARY | 2024-11-21 21:08 | XMS_ITS | Referral Summary ---
Author Organization [facility] Address [address] [place] [address] Care Team Providers Care Escape Wheel Tooth Cutter Name Role Phone Unavailable Primary Care Provider Unavailabl e Source Comments [facility],non-owned Affiliates and Associated Physician Practices is amultiple site organization consisting of ambulatory clinics and hospital sitesin [place], [place], [place] and [place]. This disclosure is being madepursuant to the Care Everywhere program and may not contain all information available regarding this patient. Last updated 18.[facility] [employer] Allergies Active Allergy Reactions Criticality Noted Date [...] 93 08/01/2023 8:17 AM CDT Temperature 36.9 C (98.4 F) 09/29/2019 11:09 PM EYEWEAR CONSULTANT Respiratory Rate 16 08/01/2023 8:17 AM CDT Oxygen Saturation 96% 09/30/2019 1:20 AM EYEWEAR CONSULTANT Inhaled Oxygen Concentration - - Weight 49.9 [...] findings should be correlated with physical examination. A relatively nonspecific study should not preclude additional evaluation if suspicious findings are present clinically. An [employer] certified facility. [facility] utilize [employer] as a reminder system to notify patients [...]
--- OUTSIDE RECORDS SUMMARY | 2024-11-21 21:08 | XMS_ITS | Continuity of Care Document ---
Author Organization [facility] Address [address] [place] [address] Phone Care Team Providers Care Line Closer Name Role Phone Glenis Hamilton Unavailable Unavailab le Advance Directives Directive Yes / No Effective Date File Name No Information Encounters Encounter Description Practice Location Reason(s) For Visit Diagnoses Date Provider Providers Copied on Encounter [employer], [address], [place], [place], [id number], [place] tel:[phone] [facility] No Information Cricket Galvin. [address] [place] [address], [id number], [place]. tel:[phone] Family History Family Member Type Diagnosis Age At Onset No Information Payers Payer name Insurance type Covered alliance party ID Authoriza tion(s) No Information Social [...]
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
--- OUTSIDE RECORDS SUMMARY | 2024-11-21 21:08 | XMS_ITS | Encounter Summary ---
Author Organization [employer] [facility] Address [address] [place] [address] Care Team Providers Care Coo & Co Founder Name Role Phone Sukhjinder Chidi Balaji DO Primary Care Provider Un available Encounter Details Date Type Department Care Team (Late st Contact Info) Description 12/31/2015 Nurse Triage Report [facility] ABSTRACTION iSma You, RN Social History Tobacco Use Types [...] documented as of this encounter Care Teams Coo & Co Founder Relationship Specialty Start Date End Date Chidi Slaughter DO PCP - General Internal Medicine 09/21/19 10/24/19 documented as of this encounter
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
--- OUTSIDE RECORDS SUMMARY | 2024-11-21 21:08 | XMS_ITS | Clinical Summary ---
Author Organization [facility] Address [address] [place] [address] Care Team Providers Care Field Training Agent Name Role Phone None, Provider MD Primary [...] on file Legal Sex Female 11:33 PM PRE SALES TECHNICAL CONSULTANT Gender Identity Not on file Sexual Orientation Not on file Last Filed Vital Signs Vital Sign Reading Time Taken Comments Blood Pressure 142/85 05/15/2024 5:03 AM CDT Pulse 86 05/15/2024 5:03 AM CDT Temperature 36.5 C (97.7 F) 05/15/2024 5:03 AM CDT Respiratory Rate 22 05/15/2024 5:03 AM CDT [...] Screening 2022 04/15/2020, 04/09/2020, 02/02/2019 COVID-19 Vaccine (2023-2 5 season) 2024 Influenza Adult (#1) 2024 HPV Vaccines Aged Out No longer eligi ble based on patient's age to complete this topic Meningococcal B Vaccine Aged Out No l onger eligible based on patient's age to complete this topic Meningococcal Vaccine Aged Out No skylar radha eligible based on patient's age to complete this topic RSV Immunization or 60+ Years (No Doses Required) Completed RSV Immunizations Under 20 Months Aged Out No longer eligible b ased on patient's age to complete this topic Insurance Dr Mack [address] DIV[employer] Care Teams Field Training Agent Relationship Specialty Start Date End Date None, Provider, MD PCP - General UNKNOWN PHYSICIAN SPECIALTY 05/15/24
--- OUTSIDE RECORDS SUMMARY | 2024-11-21 21:08 | XMS_ITS | Encounter Summary ---
Author Organization [facility] Address [address] [place] [address] Care Team Providers Care School Photographs Detailer Name Role Phone Unavailable Primary Care Provider [...] declined 06/12/2019 How often do you attend orthodoxy or congregational serv ices? Patient declined 06/12/2019 Do you belong to any clubs o r organizations such as orthodoxy groups, unions, fraternal or athletic groups, or [...]
--- OUTSIDE RECORDS SUMMARY | 2024-11-21 21:08 | XMS_ITS | Continuity of Care Document ---
Author Organization [facility] Address [address] [place] [address] Phone Care Team Providers Care Money Market Dealer Name Role Phone No Information Unavailable Unavailable Medications Medication Instructions Dosage Effective Dates (start - stop) Status Comments No Drug Therapy Prescribed Advance Directives Directive Yes / No Effective Date File Name No Information Encounters Encounter Description Practice Location Reason(s) For Visit Diagnoses Date Provider Providers Copied on Encounter [facility], [address] [place] [address], [employer], [place] tel:[phone] No Information No Information Family History Family [...]
--- OUTSIDE RECORDS SUMMARY | 2024-11-21 21:08 | XMS_ITS | Continuity of Care Document ---
Author Organization [facility] Address [address] [facility] [place] [address] Phone Care Team Providers Care Small Business Director Name Role Phone Unavailable Unavailable Unavailable Advance Directives Directive Yes / No Effective Date File Name No Information Encounters Encounter Description Practice Location Reason(s) For Visit Diagnoses Date Provider Providers Copied on Encounter [facility], [address] [facility], [place], [place], [id number], tel:[phone] [facility] No Information 201 6 No Information Referring Provider: RAYSA DOWLING, [address], [place], [address]. tel:[phone] Family History Family Member Type Diagnosis Age At Onset No Information Payers Payer name Insurance type Covered alliance party ID Authoriza tiusha(s) [facility] [id number] Social History Type Description Quantity Date Captured Comments Sex Female Smoking Status No Information Chief Complaint And Reason For Visit No Information History Of Present Illness Encounter Date Complaint History Of Prese nt Illness No Information Instructions Date Instruction Additional Infor mation No Information Assessments Type Assessment Date No Information
--- OUTSIDE RECORDS SUMMARY | 2024-11-21 21:08 | XMS_ITS | Patient Health Summary ---
Author Organization [facility] Address [address] [place] [address] Care Team Providers Care Winder Contort Operator Name Role Phone Unavailable Primary Care Provider Unavailabl e Note from [facility],non-owned Affiliates and Associated Physician Practices is amultiple site organization consisting of ambulatory clinics and hospital sitesin [place], [place], [place] and [place]. This disclosure is being madepursuant to the Care Everywhere program and may not contain all information available regarding this patient. Last updated 18.[facility] Allergies * Prochlorperazine(Unknown) -Low Criticality Medications * [...] 36.9 C (98.4 F) 09/29/2019 11:09 PM SEED CORE OPERATOR Respiratory Rate 16 08/01/2023 8:17 AM CDT Oxygen Saturation 96% 09/30/2019 1:20 AM SEED CORE OPERATOR Inhaled Oxygen Concentration - - Weight 49.9 kg (110 lb) 04/07/2020 11:24 AM CDT Height 162.6 cm (5' 4 ) 08/01/2023 8:17 AM CDT Body Mass Index 18.88 04/07/2020 11:24 AM CDT Procedures * LUPUS ANTICOAGULANT PANEL(Performed 08/01/2023) Performed for SAB (spontaneous ) ([facility]) * BETA-2 GLYCOPROTEIN 1 ANTIBODY IGG/IGM PANEL(Performed 08/01/2023) Performed for SAB (spontaneous ) ([facility]) * CARDIOLIPIN ANTIBODY IGG/IGM PANEL(Performed 08/01/2023) Performed for SAB (spontaneous ) ([facility]) * COMPREHENSIVE METABOLIC PANEL(Performed 08/01/2023) Performed for SAB (spontaneous ) ([facility]) * CBC W/O DIFFERENTIAL(Performed 08/01/2023) Performed for SAB (spontaneous ) ([facility]) * SONOGRAM - COMPLETE(Performed 08/01/2023) Performed for Establish gestational age, ultrasound ([facility]) * MAMMO LEFT DIAGNOSTIC(Performed 04/15/2020) Performed [...] - 38.4 Seconds 08/02/2023 12:02 PM CDT [facility] PT 12.5 12.1 - 14.8 Seconds 08/02/2023 12:02 PM [facility] INR 1.0 See Comment 08/02/2023 12:02 PM [facility] [place] Buffer 47.3 Seconds 023 12:02 PM [facility] [place] Phospholipid 44.6 Seconds 08/02/2023 12:02 PM [facility] [place] Delta 2.7 <8.0 Seconds 08/02/2023 12:02 PM [facility] Interpretation [place] Negative 08/02/2023 12:02 PM [facility] Comment:Up to 15-20% of mo ents [...] Heart MD LAB - HEMATOLOGY ORD ERABLES [address] [address], [facility] [phone] * CARDIOLIPIN ANTIBODY IGG/IGM PANEL (08/01/2023 8:56 AM CDT) Cardiolipin Antibody IgG <9 0 - 14 GPL U/mL 08/02/2023 4:11 PM CDT [facility] ([facility]) Comment: Negative: <15 Indeterminate: 15 - 20 Low-Med Positive: >20 - 80 High Positive: >80 Cardiolipin Antibody IgM 10 0 - 12 MPL U/mL 08/02/2023 4:11 PM CDT [facility] ([facility]) Comment: Negative: <13 Indeterminate: 13 - 20 Low-Med Positive: >20 - 80 High Positive: >80 Blood BLOOD SPECIMEN / Unknown Venipuncture / Unknown 08/01/2023 8:56 AM CDT 08/01/2023 9:15 AM CDT Narrative [facility] ([facility]) - 08/02/2023 4:11 PM CDT Performed at: [facility] [address] [place], [place] [id number] Senior Web Applications Developer: Young Reed PhD, Phone: [phone] Kimmy Heart MD LAB - SEROLOGY ORDER REAL [facility] ([facility]) [address] [place] [address] * BETA-2 GLYCOPROTEIN 1 ANTIBODY IGG/IGM PANEL (08/01/2023 8:56 AM CDT) [facility] Beta-2 Glycoprotein I Antibody IgG <9 0 - 20 GPI IgG units 08/03/2023 3:35 AM CDT [facility] ([facility]) Comment: The reference interval reflects a 3SD or 99th percentile interval, which is thought to represent a potentially clinically significant result in accordance with the International Consensus Statement on the classification criteria for definitive antiphospholipid syndrome (APS). J Thromb Haem 2006;4:295-306. Beta-2 Glycoprotein I Antibody IgM 9 0 - 32 GPI IgM units 08/03/2023 3:35 AM CDT [facility] ([facility]) Comment: The reference interval reflects a 3SD or 99th percentile interval, which is thought to represent a potentially clinically significant result in accordance with the International Consensus Statement on the classification criteria for definitive antiphospholipid syndrome (APS). J Thromb Haem 2006;4:295-306. Blood BLOOD SPECIMEN / Unknown Venipuncture / Unknown 08/01/2023 8:56 AM CDT 08/01/2023 9:15 AM CDT Narrative [facility] ([facility]) - 08/03/2023 3:35 AM CDT Performed at: [address] [id number] Senior Web Applications Developer: Dylon Yap MD, Phone: [phone] Kimmy Heart MD LAB - CHEMISTRY DANIELLE FRANKLIN [facility] ([facility]) [address] [address] * (ABNORMAL) CBC W/O DIFFERENTIAL (08/01/2023 8:56 AM CDT) WBC 9.7 4.4 - 10.7 x10E9/L 08/01/2023 9:24 AM CDT [facility] RBC 3.91 3.80 - 5.20 x10E12/L 08/01/2023 9:24 AM CDT [facility] Hemoglobin 12.1 12.0 - 15.6 gm/dL 08/01/2023 9:24 AM CDT [facility] Hematocrit 36.0 35.9 - 45.5 % 08/01/2023 9:24 AM CDT [facility] MCV 92.1 80.7 - 98.3 fl 08/01/2023 9:24 AM CDT [facility] MCH 30.9 26.7 - 34.0 pg 08/01/2023 9:24 AM CDT [facility] MCHC 33.6 30.8 - 35.9 gm/dL 08/01/2023 9:24 AM CDT [facility] Platelet Count 380 153 - 416 x10E9/L 08/01/2023 9:24 AM CDT [facility] RDW-CV 13.4 12.1 - 14.9 % 08/01/2023 9:24 AM CDT [facility] MPV 9.0(L) 9.4 - 12.9 fl 08/01/2023 9:24 AM CDT [facility] Blood BLOOD SPECIMEN / Unknown Venipuncture / Unknown 08/01/2023 8:56 AM CDT 08/01/2023 9:15 AM CDT Kimmy Heart MD LAB - HEMATOLOGY ORD ERACADEN [facility] [address] [place] [address] * COMPREHENSIVE METABOLIC PANEL (08/01/2023 8:56 AM CDT) Only the most recent of5 resultswithin the time period is included. Glucose 92 70 - 105 mg/dL 08/01/2023 9:47 AM CDT [facility] Sodium 139 136 - 145 mmol/L 08/01/2023 9:47 AM CDT [facility] Potassium 3.8 3.5 - 5.1 mmol/L 08/01/2023 9:47 AM CDT [facility] Chloride 104 98 - 107 mmol/L 08/01/2023 9:47 AM CDT [facility] CO2 28 22 - 29 mmol/L 08/01/2023 9:47 AM CDT [facility] Calcium 9.5 8.4 - 10.4 mg/dL 08/01/2023 9:47 AM CDT [facility] Anion Gap 7 6 - 16 mmol/L 08/01/2023 9:47 AM CDT [facility] BUN 7 5.3 - 18.7 mg/dL 08/01/2023 9:47 AM CDT [facility] Creatinine 0.75 0.57 - 1.11 mg/dL 08/01/2023 9:47 AM CDT [facility] Alkaline Phosphatase 49 40 - 150 U/L 08/01/2023 9:47 AM CDT [facility] ALT 9 0 - 55 U/L 08/01/2023 9:47 AM CDT [facility] AST 20 5 - 34 U/L 08/01/2023 9:47 AM CDT [facility] Protein Total 7.3 6.4 - 8.3 gm/dL 08/01/2023 9:47 AM CDT [facility] Albumin 4.0 3.4 - 5.0 gm/dL 08/01/2023 9:47 AM CDT [facility] Bilirubin Total 0.3 0.2 - 1.2 mg/dL 08/01/2023 9:47 AM CDT [facility] eGFR by CKD-EPI >90 >=90 mL/min/1.7 3 m2 08/01/2023 9:47 AM CDT [facility] Blood BLOOD SPECIMEN / Unknown Venipuncture / Unknown 08/01/2023 8:56 AM CDT 08/01/2023 9:15 AM CDT Kimmy Heart MD LAB - CHEMISTRY DANIELLE Ibarra Organization Address City/State/ZIP Co de Phone Number [facility] [address] [place], [place] [id number] * SONOGRAM - COMPLETE (08/01/2023 7:52 AM CDT) Anatomical Region Laterality Modality Other 08/01/2023 7:52 AM CDT Narrative 08/01/2023 9:33 AM CDT [facility] PHONE: FAX: Pat. Name: JEANINE MONTOYA Pat. No: [id number] Study Date: 08/01/2023 7:52am , Age: 09 1980, 43 Pregnancies: 14, Para 2-1-10-3 Height: 64 in Weight: 110 lb LMP: 06/06/2023 GA by LMP: 08w0d GA by US: 06w4d DOMENICA: 03/22/2024 GA Selected: 06w4d (Sonographic) DOMENICA: 03/22/2024 Referring MD: MD Narciso, [facility] Medical Insurance Clerk: Poonam Mendez, [facility], RDCS CPT4: 76373,82924 BMI: 18.88 Hist/Ind: Dating Advanced maternal age, multigravida Chronh's Multiple SAB (possibly x 10) MJ use MEASUREMENTS & AGE GROWTH EVALUATION Measurement GA Range Srce %for GA Ratios ----- ---- ------- CRL 0.7 cm 06w4d ([id number]) Hadl CRL 50% GA for sonogram 06w4d ([id number]) based on (CRL) Avg PROCEDURE, TECHNIQUE Technique: transabdominal, transvaginal EVAL, PLACENTA [...] single intrauterine was seen without cardiac activity. Free fluid was not seen in the pelvis. The right ovary appears normal. The left ovary was seen with suspected septated cyst. IMPRESSION: Single, IUP seen with CRL corresponding to gestational age at 6w4d with no cardiac activity noted at this time. Findings are indicative of early failed . Patient was sent to [facility] clinic for further management. RECOMMEND: Findings were communicated to provider care team at [facility] clinic at the time of the scan. Follow up as clinically indicated Vincenzo Blood MD <Electronic Signature> 08/01/2023 09:32am Eulalio Lau MD [facility] ORDERABLES * MAMMO LEFT DIAGNOSTIC (04/15/2020 2:21 PM CDT) Anatomical Region Laterality Modality Breast Left Mammography 04/15/2020 2:19 PM CDT Impressions 04/16/2020 4:12 PM CDT Successful ultrasound-guided left breast biopsy and left axillary lymph node biopsy *Reading Radiologist: Jeffrey Ramirez on 04/16/2020 at 4:12 PM Narrative 04/16/2020 4:12 PM CDT EXAM: US BREAST LEFT BIOPSY*[id number] INDICATION: Other abnormal and inconclusive findings on [...] 2:22 PM CDT EXAM: US BREAST LEFT BIOPSY*[id number] INDICATION: Other abnormal and inconclusive findings on [...] PM CDT) Case Report Surgical Pathology Report Case: [id number] Authorizing Provider: Kandi Zavala DO Collected: 04/15/2020 01:56 PM Ordering Location: [facility] Received: 04/16/2020 08:50 AM Pathologist: Cynthia Fortune MD Specimens: A) - Breast Core Biopsy, Left Breast 10:00, 1cmfn B) - Breast Core Biopsy 04/21/2020 11:33 AM CDT [facility] Final Diagnosis Breast, left, 10 o'clock, 1 cm from nipple, ultrasound-guided needle biopsy: - Focal proliferative fibrocystic changes - No evidence of malignancy - See description Lymph node, left axilla, ultrasound-guided needle biopsy: - Benign lymph node with tattoo pigment - No evidence of malignancy KL/scs 04/21/2020 11:33 AM [facility] Gross Description Received in two formalin-filled containers, each labeled with the patient s name, Jeanine Montoya. Specimen A is [...] pm. Cold ischemic time is 1 second. SD/na 04/21/2020 11:33 AM T [facility] Microscopic Description Histologic sections show [...] pigment. There is no evidence of malignancy. KL/scs 04/21/2020 11:33 AM CDT [facility] Disclaimer All histochemical and/or immunohistochemical results are interpreted with controls that demonstrate appropriate staining reactions before reporting results. Note on use of immunocytochemistry reagents: This test was developed and its performance characteristic determined by [facility], Department of Laboratory Medicine. It has not been cleared or approved by the U.S. Food and Drug Administration (FDA). The FDA has determined that such clearance or approval is not necessary. The test is used for clinical purpose. It should not be regarded as investigational or for research. This laboratory is certified to perform high complexity testing. The performance characteristics of the IHC/JALNY assays have been validated on formalin-fixed paraffin embedded tissues only. The assays have not been validated on decalcified tissues. Results should be interpreted with caution. 04/21/2020 11:33 AM CDT [facility] Embedded Images 04/21/2020 11:33 AM CDT [facility] Pathology/Cytology SPECIMEN FROM BREAST OBTAINED BY CORE NEEDLE BIOPSY / Unknown 04/15/2020 1:56 PM CDT 04/16/2020 8:50 AM CDT Miscellaneous samples (specimen) SPECIMEN FROM BREAST OBTAINED BY CORE NEEDLE BIOPSY / Unknown 04/15/2020 1:57 PM CDT 04/16/2020 8:50 AM CDT Kandi Zavala DO LAB - PATHOLOGY/CYTO LOGY ORDERABLES [facility] [address] [place] [address] * US BREAST BILATERAL LTD( most commonly [...] if suspicious findings are present clinically. An [employer] certified facility. [facility] utilize [employer] as a reminder system to notify patients of their next recommended mammograms. Edited by Steff Gonzalez on 04/09/2020 2:52 PM *Reading Radiologist: Zhou Nicholas on 04/09/2020 at 2:58 PM Kandi Zavala DO MAMMO ORDERABLES * PT PTT PANEL (09/29/2019 11:54 PM SEED CORE OPERATOR) PT 10.3 9.5 - 11.6 sec 09/30/2019 12:50 AM SEED CORE OPERATOR [facility] INR 1.0 0.9 - 1.1 09/30/2019 12:50 AM [facility] PTT 25.4 21.0 - 32.0 sec 09/30/2019 12:50 AM [facility] Blood BLOOD SPECIMEN / Unknown Venipuncture / Unknown 09/29/2019 11:54 PM SEED CORE OPERATOR 09/30/2019 12:01 AM SEED CORE OPERATOR Narrative [facility] - 09/30/2019 12:50 AM [facility] Conventional Warfarin Anticoagulant Therapy: INR Reference Range: 2.0-3.0 Intensive Warfarin Anticoagulant Therapy: INR Reference Range: 2.5-3.5 Heparin Therapeutic Range for PTT: 50.5 - 74.3 seconds. Kasie Rodriguez MD LAB - COAGULATION OR DERABLES [facility] [address] [address] * (ABNORMAL) CBC W AUTO DIFFERENTIAL (09/29/2019 11:54 PM [facility]) Only the most recent of5 resultswithin the time period is included. WBC 7.5 4.4 - 10.7 x10E9/L 09/30/2019 12:04 AM [facility] WBC Corrected 09/30/2019 12:04 AM [facility] RBC 3.18(L) 3.80 - 5.20 x10E12/L 09/30/2019 12:04 AM [facility] Hemoglobin 9.9(L) 12.0 - 15.6 gm/dL 09/30/2019 12:04 AM [facility] Hematocrit 29.3(L) 35.9 - 45.5 % 09/30/2019 12:04 AM [facility] MCV 92.1 80.7 - 98.3 fl 09/30/2019 12:04 AM [facility] MCH 31.1 26.7 - 34.0 pg 09/30/2019 12:04 AM [facility] MCHC 33.8 30.8 - 35.9 gm/dL 09/30/2019 12:04 AM [facility] Platelet Count 233 153 - 416 x10E9/L 09/30/2019 12:04 AM [facility] RDW-CV 12.7 12.1 - 14.9 % 09/30/2019 12:04 AM [facility] MPV 8.7(L) 9.4 - 12.9 fl 09/30/2019 12:04 AM [facility] Neutrophils % 54.5 44.0 - 73.0 % 09/30/2019 12:04 AM [facility] Lymphocytes % 34.3 20.0 - 43.0 % 09/30/2019 12:04 AM [facility] Monocytes % 8.5 5.0 - 13.0 % 09/30/2019 12:04 AM [facility] Eosinophils % 2.1 0.0 - 6.0 % 09/30/2019 12:04 AM [facility] Basophils % 0.5 0.0 - 2.0 % 09/30/2019 12:04 AM [facility] Immature Granulocytes 0.1 0 - 1 % 09/30/2019 12:04 AM [facility] Neutrophil Absolute 4.08 2.01 - 7.14 x10E9/L 09/30/2019 12:04 AM [facility] Lymphocytes Absolute 2.57 1.07 - 3.94 x10E9/L 09/30/2019 12:04 AM [facility] Monocytes Absolute 0.64 0.26 - 1.07 x10E9/L 09/30/2019 12:04 AM [facility] Eosinophils Absolute 0.16 0 - 0.47 x10E9/L 09/30/2019 12:04 AM [facility] Basophils Absolute 0.04 0 - 0.08 x10E9/L 09/30/2019 12:04 AM [facility] Immature Granulocytes Absolute 0.01 0.00 - 0.06 x10E9/L 09/30/2019 12:04 AM [facility] nRBC Auto 0 /100 WBC 09/30/2019 12:04 AM [facility] Blood BLOOD SPECIMEN / Unknown Venipuncture / Unknown 09/29/2019 11:54 PM SEED CORE OPERATOR 09/30/2019 12:01 AM [facility] Kasie Rodriguez MD LAB - HEMATOLOGY ORD ERABLES [facility] [address] [id number] * HCG BETA BLOOD QUANTITATIVE (09/29/2019 11:54 PM SEED CORE OPERATOR) Only the most recent of3 resultswithin the time period is included. hCG Quantitative <1.20 mIU/mL 09/30/20 19 2:11 AM [facility] Blood BLOOD SPECIMEN / Unknown Venipuncture / Unknown 09/29/2019 11:54 PM SEED CORE OPERATOR 09/30/2019 12:01 AM SEED CORE OPERATOR Narrative [facility] - 09/30/2019 2:11 AM SEED CORE OPERATOR hCG Reference Range, mIU/mL: Males 0-2.0 Non Females 0-6.0 Perimenopausal Females ages 41-55* 0-7.7 Postmenopausal Females age >55* 0-14 Females, Weeks after Last Menstrual Period 0.2-1 week 5-50 1 - 2 weeks 50-500 2 - 3 weeks 100-5000 3 - 4 weeks 500-10,000 4 - 5 weeks 1000-50,000 5 - 6 weeks 10,000-100,000 6 - 8 weeks 15,000-200,000 2 - 3 months 10,000-100,000 Trophoblastic Disease >100,000 *In higher than expected hCG in females > age 40, a serum FSH >20 IU/L makes unlikely. Kasie Rodriguez MD LAB - CHEMISTRY DANIELLE FRANKLIN Performing Organization Address City/[facility]/ZIP Co de Phone Number [facility] [address] [place], [place] [phone] * MAGNESIUM BLOOD (09/29/2019 11:54 PM SEED CORE OPERATOR) Magnesium 1.8 1.6 - 2.6 mg/dL 09/30/2019 12:21 AM SEED CORE OPERATOR [facility] Blood BLOOD SPECIMEN / Unknown Venipuncture / Unknown 09/29/2019 11:54 PM SEED CORE OPERATOR 09/30/2019 12:01 AM SEED CORE OPERATOR Kasie Rodriguez MD LAB - CHEMISTRY DANIELLE FRANKLIN Performing Organization Address City/[facility]/ZIP Co de Phone Number [facility] [address] [place] [address] * LIPASE BLOOD (09/29/2019 11:54 PM SEED CORE OPERATOR) Lipase 12 8 - 78 U/L 09/30/2019 12:21 AM SEED CORE OPERATOR [facility] Blood BLOOD SPECIMEN / Unknown Venipuncture / Unknown 09/29/2019 11:54 PM SEED CORE OPERATOR 09/30/2019 12:01 AM SEED CORE OPERATOR Kasie Rodriguez MD LAB - CHEMISTRY DANIELLE FRANKLIN [facility] [address] [address] * LACTIC ACID BLOOD (09/29/2019 11:54 PM SEED CORE OPERATOR) Lactic Acid 0.52 0.5 - 2.2 mmol/L 09/30/2019 12:16 AM SEED CORE OPERATOR [facility] Blood BLOOD SPECIMEN / Unknown Venipuncture / Unknown 09/29/2019 11:54 PM SEED CORE OPERATOR 09/30/2019 12:01 AM SEED CORE OPERATOR Kasie Rodriguez MD LAB - CHEMISTRY DANIELLE FRANKLIN Performing Organization Address City/[facility]/ZIP Co de Phone Number [facility] [address] [address] * XR SACRUM AND COCCYX (08/13/2017 10:05 AM CDT) Anatomical Region Laterality Modality Spine Radiographic Giovana ging 08/13/2017 10:1 8 AM CDT Narrative 08/13/2017 10:21 AM CDT EXAM: XR SACRUM AND COCCYX*[id number] INDICATION: Unspecified injury of lower back, initial [...] MD - 08/13/2017 EXAM: XR SACRUM AND COCCYX*[id number] INDICATION: Unspecified injury of lower back, initial [...] Bilateral sacroiliac joints are intact. Christel Voss APRN-REGISTERED NURSE [facility]WIFE [facility]AGI NG ORDERABLES * HCG URINE QUALITATIVE - POINT OF CARE (IP) (08/13/2017 8:25 AM CDT) Only the most recent of4 resultswithin the time period is included. HCG Qual Urine Negative Negative [facility] POCT TESTING QC Verified Yes Yes [facility] POC T TESTING Urine URINE / Unknown 08/13/2017 8 :25 AM CDT Christel Voss APRN-REGISTERED NURSE MIDWIFE LAB - POINT OF C ARE ORDERABLES [facility] [address] * US OB 14+ WKS SINGLE GEST (12/12/2015 10:22 AM SEED CORE OPERATOR) Anatomical Region Laterality Modality Abdomen Ultrasound 12/12/2015 10:2 2 AM SEED CORE OPERATOR Impressions 12/12/2015 10:24 AM SEED CORE OPERATOR Intrauterine at 15 weeks 6 day gestation with heart rate 153 beats per minute. Followup should be performed as needed Narrative 12/12/2015 10:24 AM SEED CORE OPERATOR Ultrasound OB greater than 14 weeks transabdominal [...] * SLIDE SCAN HEMATOLOGY (12/12/2015 9:46 AM SEED CORE OPERATOR) Platelet Estimation Normal Normal, Adequate platelets 12/12/2015 10:24 AM [facility] Comment:Platelet estimate = 180-240 Blood BLOOD SPECIMEN / Unknown 12/12/2015 9:46 AM SEED CORE OPERATOR 12/12/2015 9:59 AM SEED CORE OPERATOR Jorge Clifford MD LAB - HEMATOLOGY ORD ERABLES [facility] [address] [id number] * (ABNORMAL) URINALYSIS ROUTINE W/REFLEX TO CULTURE (12/12/2015 9:20 AM SEED CORE OPERATOR) Only the most recent of2 resultswithin the time period is included. Color UA Yellow Straw, Yellow, Dark Yellow 12/12/2015 9:35 AM [facility] Clarity UA Clear 12/12/2015 9:35 AM [facility] Specific Buchanan UA 1.002(L) 1.005 - 1.030 12/12/2015 9:35 AM [facility] pH UA 7.0 5.0 - 8.0 pH 12/12/2015 9:35 AM [facility] Protein UA Negative Negative 12/12/2015 9:35 AM [facility] Blood UA Negative Negative 12/12/2015 9:35 AM [facility] Leukocyte UA Negative Negative 12/12/2015 9:35 AM [facility] Nitrite UA Negative Negative 12/12/2015 9:35 AM [facility] Glucose UA Negative Negative 12/12/2015 9:35 AM [facility] Ketone UA Negative Negative 12/12/2015 9:35 AM [facility] Bilirubin UA Negative Negative 12/12/2015 9:35 AM [facility] Urobilinogen UA 0.2 0.1 - 1.0 EU/dL 12/12/2015 9:35 AM [facility] Reflex Status Culture not indicated 12/12/2015 9:35 AM SEED CORE OPERATOR [facility] Urine URINE SPECIMEN OBTAINED BY CLEAN CATCH PROCEDURE / Unknown 12/12/2015 9:20 AM SEED CORE OPERATOR 12/12/2015 9:29 AM SEED CORE OPERATOR Jorge Clifford MD LAB - URINALYSIS ORD ERABLES [facility] [address] [id number] * [facility] Protocol CT (08/10/2015 3:19 PM [...] is appreciated. No pelvic mass is present. Procedure Note Amanda [...] PANEL (CALCIUM TOTAL) (08/04/2015 10:59 AM CDT) Glucose 79 74 - 106 mg/dL 08/04/2015 11:34 AM CDT [facility] Sodium 140 136 - 145 mmol/L 08/04/2015 11:34 AM CDT [facility] Potassium 3.5 3.5 - 5.1 mmol/L 08/04/2015 11:34 AM T [facility] [facility] Chloride 107 98 - 107 mmol/L 08/04/2015 11:34 AM [facility] CO2 28 22 - 31 mmol/L 08/04/2015 11:34 AM [facility] Calcium 8.7 8.5 - 10.1 mg/dL 08/04/2015 11:34 AM [facility] Anion Gap 5 5 - 20 mmol/L 08/04/2015 11:34 AM [facility] BUN 12 7 - 21 mg/dL 08/04/2015 11:34 AM [facility] Creatinine 0.66 0.50 - 1.30 mg/dL 08/04/2015 11:34 AM [facility] eGFR by MDRD >60 >60 mL/min/1.7 3m2 08/04/2015 11:34 AM [facility] eGFR by MDRD >60 >60 mL/min/1.7 3m2 08/04/2015 11:34 AM [facility] Blood BLOOD SPECIMEN / Unknown Venipuncture / Unknown 08/04/2015 10:59 AM CDT 08/04/2015 11:10 AM CDT Kasie Rodriguez MD LAB - CHEMISTRY [facility] Address City/State/ZIP Co de Phone Number [facility] [address] [place] [address] * HCG URINE QUALITATIVE (08/04/2015 10:26 AM CDT) Pathologist [facility] hCG Qualitative Urine Negative Negative 08/04/2015 11:28 AM [facility] Urine URINE / Unknown Collection / Unknown 08/04/2015 10:26 AM CDT 08/04/2015 11:10 AM CDT Kasie Rodriguez MD LAB - URINALYSIS ORD ERABLES [facility] [address] [address] * URINALYSIS ROUTINE AUTO (08/04/2015 10:25 AM CDT) Color UA Yellow Straw, Yellow, Dark Yellow 08/04/2015 10:36 AM CDT [facility] Clarity UA Clear 08/04/2015 10:36 AM CDT [facility] Specific [place] UA 1.015 1.005 - 1.030 08/04/2015 10:36 AM CDT [facility] pH UA 6.0 5.0 - 8.0 pH 08/04/2015 10:36 AM CDT [facility] Protein UA Negative Negative 08/04/2015 10:36 AM CDT [facility] Blood UA Negative Negative 08/04/2015 10:36 AM T [facility] Leukocyte UA Negative Negative 08/04/2015 10:36 AM CDT [facility] Nitrite UA Negative Negative 08/04/2015 10:36 AM CDT [facility] Glucose UA Negative Negative 08/04/2015 10:36 AM T [facility] Ketone UA Negative Negative 08/04/2015 10:36 AM T [facility] Bilirubin UA Negative Negative 08/04/2015 10:36 AM CDT [facility] Urobilinogen UA 0.2 0.1 - 1.0 EU/dL 08/04/2015 10:36 AM T [facility] Urine URINE SPECIMEN OBTAINED BY CLEAN CATCH PROCEDURE / Unknown 08/04/2015 10:25 AM CDT 08/04/2015 10:28 AM CDT Kasie Rodriguez MD LAB - URINALYSIS ORD ERABLES [facility] [address] [id number] * MRI SPINE CERVICAL NON CONTRAST (06/25/2015 [...] (Bezet) 402 ms [facility] MUSE Calculated P [place] 61 degrees [facility] MUSE Calculated R [place] 66 degrees [facility] MUSE Calculated T [place] 52 degrees [facility] MUSE Interpretation EKG Normal sinus rhythm Normal ECG No previous ECGs available Confirmed by MD KELI, LORI Ponce ([id number]) on 06/26/2015 8:30:40 AM [facility] MUSE 06/24/2015 8:36 PM CDT 06/26/2015 8:30 AM CDT Ankit Astorga MD ECG ORDERABLE S [facility] MUSE
--- OUTSIDE RECORDS SUMMARY | 2024-11-21 21:08 | XMS_ITS | Clinical Summary ---
Author Organization [facility] [employer] Address [address] [place] [address] Care Team Providers Care Bench Worker Name Role Phone Unavailable Primary Care Provider Unavailabl e Source Comments [facility],non-owned Affiliates and Associated Physician Practices is amultiple site organization consisting of ambulatory clinics and hospital sitesin [place], [place], [place] and [place]. This disclosure is being madepursuant to the Care Everywhere program and may not contain all information available regarding this patient. Last updated 18.[facility] [employer] Allergies Active Allergy Reactions Criticality Noted Date [...] 36.9 C (98.4 F) 09/29/2019 11:09 PM CONTACT CENTER ENGINEER Respiratory Rate 16 08/01/2023 8:17 AM CDT Oxygen Saturation 96% 09/30/2019 1:20 AM CONTACT CENTER ENGINEER Inhaled Oxygen Concentration - - Weight [...] 2001 MAMMOGRAM 04/09/2022 04/09/2020, 02/02/2019 COVID-19 VACCINE ( - 2023-2 5 season) 2024 INFLUENZA VACCINE [...] if suspicious findings are present clinically. An [employer] certified facility. [facility] utilize [employer] as a reminder system to notify patients [...]
[2024-11-21 21:12] VITALS: BMI 27.6
[2024-11-21 21:51] LABS: Collection Time Urine 24 HOURS
[2024-11-21 21:59] LABS: Creatinine Urine 58.5 mg/dL; Serum Creat 0.57; Total Protein Urine Random 63 mg/dL
[2024-11-21 22:01] LABS: Creatinine Clearance Urine 90.4 ml/min (75-125); Patient Weight 160 Lbs; Total Protein Urine 24 Hr 819 mg/24hr (28-141); Total Volume 24 Hour Urine 1300 ml
== END 2024-11-21 21:00 | disposition home or self-care (01) ==
LOC: ANHLAB 21:05
PROVIDERS: Visit Provider Obstetrics & Gynecology Gynecology
DX: Z34.90 Encounter for supervision of normal pregnancy, unspecified, unspecified trimester (principal); Z3A.00 Weeks of gestation of pregnancy not specified
CPT/HCPCS: 81050; 82575; 84156

== ENCOUNTER 2024-11-23 07:35 | Inpatient (IN) | payer OTHER, SELFPAY ==
[2024-11-23] VITALS (39 sets, daily range): BP systolic 102–154; BP diastolic 66–93; PULSE 57–119; RESP 14–20; TEMP 35.8–37.1; O2SAT 95–100; BMI 27.6
--- OUTSIDE RECORDS SUMMARY | 2024-11-23 01:49 | XMS_ITS | Referral Summary ---
Author Organization [facility] Address [address] [place] [address] Care Team Providers Care Cnmt Name Role Phone Unavailable Primary Care Provider Unavailabl e Source Comments [facility],non-owned Affiliates and Associated Physician Practices is amultiple site organization consisting of ambulatory clinics and hospital sitesin [place], [place], [place] and [place]. This disclosure is being madepursuant to the Care Everywhere program and may not contain all information available regarding this patient. Last updated 18.[facility] Allergies Active Allergy Reactions Criticality Noted Date [...] 36.9 C (98.4 F) 09/29/2019 11:09 PM MANAGER REPORT Respiratory Rate 16 08/01/2023 8:17 AM CDT Oxygen Saturation 96% 09/30/2019 1:20 AM MANAGER REPORT Inhaled Oxygen Concentration - - Weight 49.9 [...] if suspicious findings are present clinically. An [employer] certified facility. [facility] utilize [email or web address] as a reminder system to notify patients [...]
--- OUTSIDE RECORDS SUMMARY | 2024-11-23 01:49 | XMS_ITS | Encounter Summary ---
Author Organization [facility] [facility] Address [address] [place] [address] Care Team Providers Care Juvenile Justice Specialist Name Role Phone Sukhjinder Chidi Balaji DO [...] documented as of this encounter Care Teams Juvenile Justice Specialist Relationship Specialty Start Date End Date Chidi Slaughter DO PCP - General Internal Medicine 09/21/19 10/24/19 documented as of this encounter
--- OUTSIDE RECORDS SUMMARY | 2024-11-23 01:49 | XMS_ITS | Patient Health Summary ---
Author Organization [facility] Address [address] [place] [address] Care Team Providers Care Repair Armature Winder Helper Name Role Phone Unavailable Primary Care Provider Unavailabl e Note from [facility],non-owned Affiliates and Associated Physician Practices is amultiple site organization consisting of ambulatory clinics and hospital sitesin [place], [place], [place] and [place]. This disclosure is being madepursuant to the Care Everywhere program and may not contain all information available regarding this patient. Last updated 18.[facility] Allergies * Prochlorperazine(Unknown) -Low Criticality Medications [...] 36.9 C (98.4 F) 09/29/2019 11:09 PM ARMATURE TESTER Respiratory Rate 16 08/01/2023 8:17 AM CDT Oxygen Saturation 96% 09/30/2019 1:20 AM ARMATURE TESTER Inhaled Oxygen Concentration - - Weight 49.9 kg (110 lb) 04/07/2020 11:24 AM CDT Height 162.6 cm (5' 4 ) 08/01/2023 8:17 AM CDT Body Mass Index 18.88 04/07/2020 11:24 AM CDT Procedures * LUPUS ANTICOAGULANT PANEL(Performed 08/01/2023) Performed for SAB (spontaneous ) ([facility]) * BETA-2 GLYCOPROTEIN 1 ANTIBODY IGG/IGM PANEL(Performed 08/01/2023) Performed for SAB (spontaneous ) ([facility]) * CARDIOLIPIN ANTIBODY IGG/IGM PANEL(Performed 08/01/2023) Performed for SAB (spontaneous ) ([facility]) * COMPREHENSIVE METABOLIC PANEL(Performed 08/01/2023) Performed for SAB (spontaneous ) ([facility]) * CBC W/O DIFFERENTIAL(Performed 08/01/2023) Performed for SAB (spontaneous ) ([facility]) * SONOGRAM - COMPLETE(Performed 08/01/2023) Performed for Establish gestational age, ultrasound ([facility]) * MAMMO LEFT DIAGNOSTIC(Performed 04/15/2020) Performed for [...] 12.1 - 14.8 Seconds 08/02/2023 12:02 PM [facility] INR 1.0 See Comment 08/02/2023 12:02 PM [facility] [place] Buffer 47.3 Seconds 023 12:02 PM [facility] [place] Phospholipid 44.6 Seconds 08/02/2023 12:02 PM [facility] [place] Delta 2.7 <8.0 Seconds 08/02/2023 12:02 PM [facility] Interpretation [place] Negative 08/02/2023 12:02 PM [facility] Comment:Up to 15-20% of mo ents [...] Heart MD LAB - HEMATOLOGY ORD ERABLES [address] [address], [facility] [phone] * CARDIOLIPIN ANTIBODY IGG/IGM PANEL (08/01/2023 8:56 AM CDT) Cardiolipin Antibody IgG <9 0 - 14 GPL U/mL 08/02/2023 4:11 PM CDT [facility] ([facility]) Comment: Negative: <15 Indeterminate: 15 - 20 Low-Med Positive: >20 - 80 High Positive: >80 Cardiolipin Antibody IgM 10 0 - 12 MPL U/mL 08/02/2023 4:11 PM CDT [facility] ([facility]) Comment: Negative: <13 Indeterminate: 13 - 20 Low-Med Positive: >20 - 80 High Positive: >80 Blood BLOOD SPECIMEN / Unknown Venipuncture / Unknown 08/01/2023 8:56 AM CDT 08/01/2023 9:15 AM CDT [facility] - 08/02/2023 4:11 PM CDT Performed at: [facility] [address] [place], [place] [id number] Electronic Tech: Young Reed PhD, Phone: [phone] Kimmy Heart MD LAB - SEROLOGY ORDER REAL [facility] ([facility]) [address] [place] [address] * BETA-2 GLYCOPROTEIN 1 ANTIBODY IGG/IGM PANEL (08/01/2023 8:56 AM CDT) [facility] Beta-2 Glycoprotein I Antibody IgG <9 0 - 20 GPI IgG units 08/03/2023 3:35 AM CDT [facility] ([facility]) Comment: The reference interval reflects a 3SD or 99th percentile interval, which is thought to represent a potentially clinically significant result in accordance with the International Consensus Statement on the classification criteria for definitive antiphospholipid syndrome (APS). J Thromb Haem 2006;4:295-306. Beta-2 Glycoprotein I Antibody IgM 9 0 - 32 GPI IgM units 08/03/2023 3:35 AM CDT [facility] Comment: The reference interval reflects a 3SD or 99th percentile interval, which is thought to represent a potentially clinically significant result in accordance with the International Consensus Statement on the classification criteria for definitive antiphospholipid syndrome (APS). J Thromb Haem 2006;4:295-306. Blood BLOOD SPECIMEN / Unknown Venipuncture / Unknown 08/01/2023 8:56 AM CDT 08/01/2023 9:15 AM CDT Narrative [facility] - 08/03/2023 3:35 AM CDT Performed at: [address] [id number] Electronic Tech: Dylon Yap MD, Phone: [phone] Kimmy Heart MD LAB - CHEMISTRY DANIELLE FRANKLIN [facility] ([facility]) [address] [place] [address] * (ABNORMAL) CBC W/O DIFFERENTIAL (08/01/2023 8:56 AM CDT) WBC 9.7 4.4 - 10.7 x10E9/L 08/01/2023 9:24 AM CDT [facility] RBC 3.91 3.80 - 5.20 x10E12/L 08/01/2023 9:24 AM CDT [facility] Hemoglobin 12.1 12.0 - 15.6 gm/dL 08/01/2023 9:24 AM CDT [facility] Hematocrit 36.0 35.9 - 45.5 % 08/01/2023 9:24 AM CDT [facility] MCV 92.1 80.7 - 98.3 fl 08/01/2023 9:24 AM CDT [facility] MCH 30.9 26.7 - 34.0 pg 08/01/2023 9:24 AM CDT [facility] MCHC 33.6 30.8 - 35.9 gm/dL 08/01/2023 9:24 AM CDT [facility] Platelet Count 380 153 - 416 x10E9/L 08/01/2023 9:24 AM CDT [facility] RDW-CV 13.4 12.1 - 14.9 % 08/01/2023 9:24 AM CDT [facility] MPV 9.0(L) 9.4 - 12.9 fl 08/01/2023 9:24 AM CDT [facility] Blood BLOOD SPECIMEN / Unknown Venipuncture / Unknown 08/01/2023 8:56 AM CDT 08/01/2023 9:15 AM CDT Kimmy Heart MD LAB - HEMATOLOGY ORD ERACADEN [facility] [address] [place] [address] * COMPREHENSIVE METABOLIC PANEL (08/01/2023 8:56 AM CDT) Only the most recent of5 resultswithin the time period is included. Glucose 92 70 - 105 mg/dL 08/01/2023 9:47 AM CDT [facility] Sodium 139 136 - 145 mmol/L 08/01/2023 9:47 AM CDT [facility] Potassium 3.8 3.5 - 5.1 mmol/L 08/01/2023 9:47 AM CDT [facility] Chloride 104 98 - 107 mmol/L 08/01/2023 9:47 AM CDT [facility] CO2 28 22 - 29 mmol/L 08/01/2023 9:47 AM CDT [facility] Calcium 9.5 8.4 - 10.4 mg/dL 08/01/2023 9:47 AM CDT [facility] Anion Gap 7 6 - 16 mmol/L 08/01/2023 9:47 AM CDT [facility] BUN 7 5.3 - 18.7 mg/dL 08/01/2023 9:47 AM CDT [facility] Creatinine 0.75 0.57 - 1.11 mg/dL 08/01/2023 9:47 AM CDT [facility] Alkaline Phosphatase 49 40 - 150 U/L 08/01/2023 9:47 AM CDT [facility] ALT 9 0 - 55 U/L 08/01/2023 9:47 AM CDT [facility] AST 20 5 - 34 U/L 08/01/2023 9:47 AM CDT [facility] Protein Total 7.3 6.4 - 8.3 gm/dL 08/01/2023 9:47 AM CDT [facility] Albumin 4.0 3.4 - 5.0 gm/dL 08/01/2023 9:47 AM CDT [facility] Bilirubin Total 0.3 0.2 - 1.2 mg/dL 08/01/2023 9:47 AM CDT [facility] eGFR by CKD-EPI >90 >=90 mL/min/1.7 3 m2 08/01/2023 9:47 AM CDT [facility] Blood BLOOD SPECIMEN / Unknown Venipuncture / Unknown 08/01/2023 8:56 AM CDT 08/01/2023 9:15 AM CDT Kimmy Heart MD LAB - CHEMISTRY DANIELLE Ibarra Organization Address City/State/ZIP Co de Phone Number [facility] [address] [place], [place] [id number] * SONOGRAM - COMPLETE (08/01/2023 7:52 AM CDT) Anatomical Region Laterality Modality Other 08/01/2023 7:52 AM CDT Narrative 08/01/2023 9:33 AM CDT [facility] PHONE: FAX: Pat. Name: JEANINE MONTOYA Pat. No: [id number] Study Date: 08/01/2023 7:52am , Age: 09 1980, 43 Pregnancies: 14, Para 2-1-10-3 Height: 64 in Weight: 110 lb LMP: 06/06/2023 GA by LMP: 08w0d GA by US: 06w4d DOMENICA: 03/22/2024 GA Selected: 06w4d (Sonographic) DOMENICA: 03/22/2024 Referring MD: MD Narciso, [facility] Paper Cup Machine Operator: Poonam Mendez, [facility], RDCS CPT4: 57675,26802 BMI: 18.88 Hist/Ind: Dating Advanced maternal age, multigravida Chronh's Multiple SAB (possibly x 10) MJ use MEASUREMENTS & AGE GROWTH EVALUATION Measurement GA Range Srce %for GA Ratios ----- ---- ------- CRL 0.7 cm 06w4d (50a0h-23a4j) Hadl CRL 50% GA for sonogram 06w4d (16e4j-22v1i) based on (CRL) Avg PROCEDURE, TECHNIQUE Technique: [...] early failed . Patient was sent to [facility] clinic for further management. RECOMMEND: Findings were communicated to provider care team at [facility] clinic at the time of the scan. Follow up as clinically indicated Vincenzo Blood MD <Electronic Signature> 08/01/2023 09:32am Eulalio Lau MD [facility] ORDERABLES * MAMMO LEFT DIAGNOSTIC (04/15/2020 2:21 PM CDT) Anatomical Region Laterality Modality Breast Left Mammography 04/15/2020 2:19 PM CDT Impressions 04/16/2020 4:12 PM CDT Successful ultrasound-guided left breast biopsy and left axillary lymph node biopsy *Reading Radiologist: Jeffrey Ramirez on 04/16/2020 at 4:12 PM Narrative 04/16/2020 4:12 PM CDT EXAM: US BREAST LEFT BIOPSY*[id number] INDICATION: Other abnormal and inconclusive findings on [...] 2:22 PM CDT EXAM: US BREAST LEFT BIOPSY*[id number] INDICATION: Other abnormal and inconclusive findings on [...] CDT) Case Report Surgical Pathology Report Case: [id number] Authorizing Provider: Kandi Zavala DO Collected: 04/15/2020 01:56 PM Ordering Location: [facility] Received: 04/16/2020 08:50 AM Pathologist: Cynthia Fortune MD Specimens: A) - Breast Core Biopsy, Left Breast 10:00, 1cmfn B) - Breast Core Biopsy 04/21/2020 11:33 AM CDT [facility] Final Diagnosis Breast, left, 10 o'clock, 1 cm from nipple, ultrasound-guided needle biopsy: - Focal proliferative fibrocystic changes - No evidence of malignancy - See description Lymph node, left axilla, ultrasound-guided needle biopsy: - Benign lymph node with tattoo pigment - No evidence of malignancy KL/scs 04/21/2020 11:33 AM [facility] Gross Description Received in two [...] 1 second. SD/na 04/21/2020 11:33 AM T [facility] Microscopic Description Histologic sections show [...] of malignancy. KL/scs 04/21/2020 11:33 AM CDT [facility] Disclaimer All histochemical and/or immunohistochemical results are interpreted with controls that demonstrate appropriate staining reactions before reporting results. Note on use of immunocytochemistry reagents: This test was developed and its performance characteristic determined by [facility], Department of Laboratory Medicine. It [...] interpreted with caution. 04/21/2020 11:33 AM CDT [facility] Embedded Images 04/21/2020 11:33 AM CDT [facility] Pathology/Cytology SPECIMEN FROM BREAST OBTAINED BY CORE NEEDLE BIOPSY / Unknown 04/15/2020 1:56 PM CDT 04/16/2020 8:50 AM CDT Miscellaneous samples (specimen) SPECIMEN FROM BREAST OBTAINED BY CORE NEEDLE BIOPSY / Unknown 04/15/2020 1:57 PM CDT 04/16/2020 8:50 AM CDT Kandi Zavala DO LAB - PATHOLOGY/CYTO LOGY ORDERABLES [facility] [address] [place] [address] * US BREAST BILATERAL LTD( [...] if suspicious findings are present clinically. An [employer] certified facility. [facility] Centers utilize [employer] as a reminder system to notify patients of their next recommended mammograms. Edited by Steff Gonzalez on 04/09/2020 2:52 PM *Reading Radiologist: Zhou Nicholas on 04/09/2020 at 2:58 PM Kandi Zavala DO MAMMO ORDERABLES * PT PTT PANEL (09/29/2019 11:54 PM ARMATURE TESTER) PT 10.3 9.5 - 11.6 sec 09/30/2019 12:50 AM ARMATURE TESTER [facility] INR 1.0 0.9 - 1.1 09/30/2019 12:50 AM [facility] PTT 25.4 21.0 - 32.0 sec 09/30/2019 12:50 AM [facility] Blood BLOOD SPECIMEN / Unknown Venipuncture / Unknown 09/29/2019 11:54 PM ARMATURE TESTER 09/30/2019 12:01 AM ARMATURE TESTER Narrative [facility] - 09/30/2019 12:50 AM [facility] Conventional Warfarin Anticoagulant Therapy: INR Reference Range: 2.0-3.0 Intensive Warfarin Anticoagulant Therapy: INR Reference Range: 2.5-3.5 Heparin Therapeutic Range for PTT: 50.5 - 74.3 seconds. Kasie Rodriguez MD LAB - COAGULATION OR DERABLES [facility] [address] [address] * (ABNORMAL) CBC W AUTO DIFFERENTIAL (09/29/2019 11:54 PM [facility]) Only the most recent of5 resultswithin the time period is included. WBC 7.5 4.4 - 10.7 x10E9/L 09/30/2019 12:04 AM [facility] WBC Corrected 09/30/2019 12:04 AM [facility] RBC 3.18(L) 3.80 - 5.20 x10E12/L 09/30/2019 12:04 AM [facility] Hemoglobin 9.9(L) 12.0 - 15.6 gm/dL 09/30/2019 12:04 AM [facility] Hematocrit 29.3(L) 35.9 - 45.5 % 09/30/2019 12:04 AM [facility] MCV 92.1 80.7 - 98.3 fl 09/30/2019 12:04 AM [facility] MCH 31.1 26.7 - 34.0 pg 09/30/2019 12:04 AM [facility] MCHC 33.8 30.8 - 35.9 gm/dL 09/30/2019 12:04 AM [facility] Platelet Count 233 153 - 416 x10E9/L 09/30/2019 12:04 AM [facility] RDW-CV 12.7 12.1 - 14.9 % 09/30/2019 12:04 AM [facility] MPV 8.7(L) 9.4 - 12.9 fl 09/30/2019 12:04 AM [facility] Neutrophils % 54.5 44.0 - 73.0 % 09/30/2019 12:04 AM [facility] Lymphocytes % 34.3 20.0 - 43.0 % 09/30/2019 12:04 AM [facility] Monocytes % 8.5 5.0 - 13.0 % 09/30/2019 12:04 AM [facility] Eosinophils % 2.1 0.0 - 6.0 % 09/30/2019 12:04 AM [facility] Basophils % 0.5 0.0 - 2.0 % 09/30/2019 12:04 AM [facility] Immature Granulocytes 0.1 0 - 1 % 09/30/2019 12:04 AM [facility] Neutrophil Absolute 4.08 2.01 - 7.14 x10E9/L 09/30/2019 12:04 AM [facility] Lymphocytes Absolute 2.57 1.07 - 3.94 x10E9/L 09/30/2019 12:04 AM [facility] Monocytes Absolute 0.64 0.26 - 1.07 x10E9/L 09/30/2019 12:04 AM [facility] Eosinophils Absolute 0.16 0 - 0.47 x10E9/L 09/30/2019 12:04 AM [facility] Basophils Absolute 0.04 0 - 0.08 x10E9/L 09/30/2019 12:04 AM [facility] Immature Granulocytes Absolute 0.01 0.00 - 0.06 x10E9/L 09/30/2019 12:04 AM [facility] nRBC Auto 0 /100 WBC 09/30/2019 12:04 AM [facility] Blood BLOOD SPECIMEN / Unknown Venipuncture / Unknown 09/29/2019 11:54 PM ARMATURE TESTER 09/30/2019 12:01 AM [facility] Kasie Rodriguez MD LAB - HEMATOLOGY ORD ERABLES [facility] [address] [id number] * HCG BETA BLOOD QUANTITATIVE (09/29/2019 11:54 PM ARMATURE TESTER) Only the most recent of3 resultswithin the time period is included. hCG Quantitative <1.20 mIU/mL 09/30/20 19 2:11 AM [facility] Blood BLOOD SPECIMEN / Unknown Venipuncture / Unknown 09/29/2019 11:54 PM ARMATURE TESTER 09/30/2019 12:01 AM ARMATURE TESTER Narrative [facility] - 09/30/2019 2:11 AM ARMATURE TESTER hCG Reference Range, mIU/mL: Males 0-2.0 Non [...] - CHEMISTRY DANIELLE FRANKLIN Performing Organization Address City/[facility]/ZIP Co de Phone Number [facility] [address] [place], [place] [id number] * MAGNESIUM BLOOD (09/29/2019 11:54 PM ARMATURE TESTER) Magnesium 1.8 1.6 - 2.6 mg/dL 09/30/2019 12:21 AM ARMATURE TESTER [facility] Blood BLOOD SPECIMEN / Unknown Venipuncture / Unknown 09/29/2019 11:54 PM ARMATURE TESTER 09/30/2019 12:01 AM ARMATURE TESTER Kasie Rodriguez MD LAB - CHEMISTRY DANIELLE FRANKLIN Performing Organization Address City/[facility]/ZIP Co de Phone Number [facility] [address] [place] [place] [address] * LIPASE BLOOD (09/29/2019 11:54 PM ARMATURE TESTER) Lipase 12 8 - 78 U/L 09/30/2019 12:21 AM ARMATURE TESTER [facility] Blood BLOOD SPECIMEN / Unknown Venipuncture / Unknown 09/29/2019 11:54 PM ARMATURE TESTER 09/30/2019 12:01 AM ARMATURE TESTER Kasie Rodriguez MD LAB - CHEMISTRY DANIELLE FRANKLIN [facility] [address] [address] * LACTIC ACID BLOOD (09/29/2019 11:54 PM ARMATURE TESTER) Lactic Acid 0.52 0.5 - 2.2 mmol/L 09/30/2019 12:16 AM ARMATURE TESTER [facility] Blood BLOOD SPECIMEN / Unknown Venipuncture / Unknown 09/29/2019 11:54 PM ARMATURE TESTER 09/30/2019 12:01 AM ARMATURE TESTER Kasie Rodriguez MD LAB - CHEMISTRY DANIELLE FRANKLIN Performing Organization Address City/[facility]/ZIP Co de Phone Number [facility] [address] [address] * XR SACRUM AND COCCYX (08/13/2017 10:05 AM CDT) Anatomical Region Laterality Modality Spine Radiographic Giovana ging 08/13/2017 10:1 8 AM CDT Narrative 08/13/2017 10:21 AM CDT EXAM: XR SACRUM AND COCCYX*[id number] INDICATION: Unspecified injury of lower back, initial [...] MD - 08/13/2017 EXAM: XR SACRUM AND COCCYX*[id number] INDICATION: Unspecified injury of lower back, initial [...] Bilateral sacroiliac joints are intact. Christel Voss APRN-SERVICE SPECIALIST DIAGNOSTIC IMAGI NG ORDERABLES * HCG URINE QUALITATIVE - POINT OF CARE (IP) (08/13/2017 8:25 AM CDT) Only the most recent of4 resultswithin the time period is included. HCG Qual Urine Negative Negative [facility] POCT TESTING QC Verified Yes Yes [facility] POC T TESTING Urine URINE / Unknown 08/13/2017 8 :25 AM CDT Christel Voss APRN-SERVICE SPECIALIST LAB - POINT OF C ARE ORDERABLES [facility] [address] * US OB 14+ WKS SINGLE GEST (12/12/2015 10:22 AM ARMATURE TESTER) Anatomical Region Laterality Modality Abdomen Ultrasound 12/12/2015 10:2 2 AM ARMATURE TESTER Impressions 12/12/2015 10:24 AM ARMATURE TESTER Intrauterine at 15 weeks 6 day gestation with heart rate 153 beats per minute. Followup should be performed as needed Narrative 12/12/2015 10:24 AM ARMATURE TESTER Ultrasound OB greater than 14 weeks transabdominal [...] * SLIDE SCAN HEMATOLOGY (12/12/2015 9:46 AM ARMATURE TESTER) Platelet Estimation Normal Normal, Adequate platelets 12/12/2015 10:24 AM [facility] Comment:Platelet estimate = 180-240 Blood BLOOD SPECIMEN / Unknown 12/12/2015 9:46 AM ARMATURE TESTER 12/12/2015 9:59 AM ARMATURE TESTER Jorge Clifford MD LAB - HEMATOLOGY ORD ERABLES [facility] [address] [id number] * (ABNORMAL) URINALYSIS ROUTINE W/REFLEX TO CULTURE (12/12/2015 9:20 AM ARMATURE TESTER) Only the most recent of2 resultswithin the time period is included. Color UA Yellow Straw, Yellow, Dark Yellow 12/12/2015 9:35 AM [facility] Clarity UA Clear 12/12/2015 9:35 AM [facility] Specific [place] UA 1.002(L) 1.005 - 1.030 12/12/2015 9:35 AM [facility] pH UA 7.0 5.0 - 8.0 pH 12/12/2015 9:35 AM [facility] Protein UA Negative Negative 12/12/2015 9:35 AM [facility] Blood UA Negative Negative 12/12/2015 9:35 AM [facility] Leukocyte UA Negative Negative 12/12/2015 9:35 AM [facility] Nitrite UA Negative Negative 12/12/2015 9:35 AM [facility] Glucose UA Negative Negative 12/12/2015 9:35 AM [facility] Ketone UA Negative Negative 12/12/2015 9:35 AM [facility] Bilirubin UA Negative Negative 12/12/2015 9:35 AM [facility] Urobilinogen UA 0.2 0.1 - 1.0 EU/dL 12/12/2015 9:35 AM [facility] Reflex Status Culture not indicated 12/12/2015 9:35 AM ARMATURE TESTER [facility] Urine URINE SPECIMEN OBTAINED BY CLEAN CATCH PROCEDURE / Unknown 12/12/2015 9:20 AM ARMATURE TESTER 12/12/2015 9:29 AM ARMATURE TESTER Jorge Clifford MD LAB - URINALYSIS ORD ERABLES [facility] [address] [address] * Stone Protocol CT (08/10/2015 3:19 PM [...] - 106 mg/dL 08/04/2015 11:34 AM CDT [facility] Sodium 140 136 - 145 mmol/L 08/04/2015 11:34 AM CDT [facility] Potassium 3.5 3.5 - 5.1 mmol/L 08/04/2015 11:34 AM T [facility] Chloride 107 98 - 107 mmol/L 08/04/2015 11:34 AM T [facility] CO2 28 22 - 31 mmol/L 08/04/2015 11:34 AM [facility] Calcium 8.7 8.5 - 10.1 mg/dL 08/04/2015 11:34 AM [facility] Anion Gap 5 5 - 20 mmol/L 08/04/2015 11:34 AM T [facility] BUN 12 7 - 21 mg/dL 08/04/2015 11:34 AM [facility] Creatinine 0.66 0.50 - 1.30 mg/dL 08/04/2015 11:34 AM [facility] eGFR by MDRD >60 >60 mL/min/1.7 3m2 08/04/2015 11:34 AM [facility] eGFR by MDRD >60 >60 mL/min/1.7 3m2 08/04/2015 11:34 AM [facility] Blood BLOOD SPECIMEN / Unknown Venipuncture / Unknown 08/04/2015 10:59 AM CDT 08/04/2015 11:10 AM CDT Kasie Rodriguez MD LAB - CHEMISTRY DANIELLE FRANKLIN [facility] Organization Address City/State/ZIP Co de Phone Number [facility] [address] [place] [address] * HCG URINE QUALITATIVE (08/04/2015 10:26 AM CDT) Pathologist [facility] hCG Qualitative Urine Negative Negative 08/04/2015 11:28 AM T [facility] Urine URINE / Unknown Collection / Unknown 08/04/2015 10:26 AM CDT 08/04/2015 11:10 AM CDT Kasie Rodriguez MD LAB - URINALYSIS ORD ERABLES [facility] [address] [id number] * URINALYSIS ROUTINE AUTO (08/04/2015 10:25 AM CDT) Color UA Yellow Straw, Yellow, Dark Yellow 08/04/2015 10:36 AM CDT [facility] Clarity UA Clear 08/04/2015 10:36 AM CDT [facility] Specific [place] UA 1.015 1.005 - 1.030 08/04/2015 10:36 AM CDT [facility] pH UA 6.0 5.0 - 8.0 pH 08/04/2015 10:36 AM CDT [facility] Protein UA Negative Negative 08/04/2015 10:36 AM CDT [facility] Blood UA Negative Negative 08/04/2015 10:36 AM T [facility] Leukocyte UA Negative Negative 08/04/2015 10:36 AM CDT [facility] Nitrite UA Negative Negative 08/04/2015 10:36 AM CDT [facility] Glucose UA Negative Negative 08/04/2015 10:36 AM T [facility] Ketone UA Negative Negative 08/04/2015 10:36 AM T [facility] Bilirubin UA Negative Negative 08/04/2015 10:36 AM CDT [facility] Urobilinogen UA 0.2 0.1 - 1.0 EU/dL 08/04/2015 10:36 AM T [facility] Urine URINE SPECIMEN OBTAINED BY CLEAN CATCH PROCEDURE / Unknown 08/04/2015 10:25 AM CDT 08/04/2015 10:28 AM CDT Kasie Rodriguez MD LAB - URINALYSIS ORD ERABLES [facility] [address] [address] * MRI SPINE CERVICAL NON CONTRAST (06/25/2015 [...] (Bezet) 402 ms [facility] MUSE Calculated P [place] 61 degrees [facility] MUSE Calculated R [place] 66 degrees [facility] MUSE Calculated T [place] 52 degrees [facility] MUSE Interpretation EKG Normal sinus rhythm Normal ECG No previous ECGs available Confirmed by MD KELI, LORI Ponce (3) on 06/26/2015 8:30:40 AM [facility] MUSE 06/24/2015 8:36 PM CDT 06/26/2015 8:30 AM CDT Ankit Astorga MD ECG ORDERABLE S [facility] MUSE
--- OUTSIDE RECORDS SUMMARY | 2024-11-23 01:49 | XMS_ITS | Continuity of Care Document ---
Author Organization [facility] Address [address] [place] [address] Phone Care Team Providers Care Education Administrative Assistant Name Role Phone Glenis Hamilton Unavailable Unavailab le Advance Directives Directive Yes / No Effective Date File Name No Information Encounters Encounter Description Practice Location Reason(s) For Visit Diagnoses Date Provider Providers Copied on Encounter [facility], [address], [place], [place], [id number], [place] tel:[phone] [facility] No Information Cricket Galvin. [address] [place] [address], [id number], [place]. tel:[phone] Family History Family Member Type Diagnosis Age At Onset No Information Payers Payer name Insurance type Covered democrat ID Authoriza tion(s) No Information Social History [...]
--- OUTSIDE RECORDS SUMMARY | 2024-11-23 01:49 | XMS_ITS | Clinical Summary ---
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
--- OUTSIDE RECORDS SUMMARY | 2024-11-23 01:49 | XMS_ITS | Encounter Summary ---
Author Organization [facility] Address [address] [place] [address] Care Team Providers Care Marine Fisheries Technician Name Role Phone Unavailable Primary Care [...] How often do you attend yarsanism or anabaptist serv ices? Patient declined 06/12/2019 Do you [...]
--- OUTSIDE RECORDS SUMMARY | 2024-11-23 01:49 | XMS_ITS | Continuity of Care Document ---
Author Organization [facility] Address [address] [place] [address] Phone Care Team Providers Care Meters Superintendent Name Role Phone No Information Unavailable Unavailable Medications Medication Instructions Dosage Effective Dates (start - stop) Status Comments No Drug Therapy Prescribed Advance Directives Directive Yes / No Effective Date File Name No Information Encounters Encounter Description Practice Location Reason(s) For Visit Diagnoses Date Provider Providers Copied on Encounter [facility], [address] [place] [address], [place], [place] tel:[phone] No Information No Information Family History Family [...]
--- OUTSIDE RECORDS SUMMARY | 2024-11-23 01:49 | XMS_ITS | Referral Summary ---
Author Organization [facility] Virtual Care Address [address] [place] [address] Phone Care Team Providers Care Underwriting Service Representative Name Role Phone No, Physician Primary Care Provider [phone] Sarika Morrissey MD Unavailable [phone] Encounters Date Type Department Care Team Description 11/06/2024 7:49 PM CODER OPERATOR - 11/06/2024 9:18 PM [facility] Emergency [facility] Emergency Department [facility] [place] [address] Rob Abdul MD Pelvic pain affecting in third trimester, antepartum (Primary Dx); 35 weeks gestation of Discharge Disposition: Discharge to home or self care from Last 3 Months Allergies Active Allergy Reactions Criticality Noted Date Comments Prochlorperazine Mental status changes Low 12/09/19 21 Medications vit 99-xdiw-bkgbd-dha 27mg iron- 800 mcg-250 mg capsule Take [...] any time in the past 12 m [facility], were you homeless or living in a intermediate (including now)? No 11/06/2024 Personal Safety Answer [...] on file Legal Sex Female 9:12 PM CODER OPERATOR Gender Identity Not on file Sexual Orientation Not on file Last Filed Vital Signs Vital Sign Reading Time Taken Comments Blood Pressure 122/74 11/06/2024 8:05 PM CODER OPERATOR Pulse 113 11/06/2024 8:05 PM CODER OPERATOR Temperature 36.7 C (98.1 F) 11/06/2024 8:05 PM CODER OPERATOR Respiratory Rate 18 11/06/2024 8:05 PM CODER OPERATOR Oxygen Saturation 100% 11/06/2024 8:05 PM CODER OPERATOR Inhaled Oxygen Concentration - - Weight 69.9 kg (154 lb) 11/06/2024 8:28 PM CODER OPERATOR Height 162.6 cm (5' 4 ) 11/06/2024 8:28 PM CODER OPERATOR Body Mass Index 26.43 11/06/2024 8:28 PM CODER OPERATOR Plan of Treatment Not on file Procedures Procedure Name Priority Date/Time Associated Diagnosis Comments URINALYSIS AND REFLEX TO MICROSCOPIC AND CULTURE STAT 11/06/2024 8:31 PM CODER OPERATOR from Last 3 Months Results * Urinalysis reflex to microscopic and culture Urine (11/06/2024 8:31 PM CODER OPERATOR) Color, ur Straw Yellow Comment:Testing performed by : [address] [address] Clarity, ur Clear Clear RU Comment:Testing performed by : [address] [address] Specific gravity, ur 1.005 1.003 - 1.030 RU Comment:Testing performed by : [address] [address] pH, urine 6.5 RU Comment: Interpretive Data U rine pH is affected by diet, medications, systemic acid-base disturbances, and renal tubular function. pH may affect urinary stone formation. For example, urine pH below 6.0 may help reduce the tendency for calcium phosphate stones and pH greater than 6.0 may reduce the tendency for uric acid stone formation. Source: [facility] [employer] Current Interpretive Data was last revised on 2017 Testing performed by: [facility], [address] [place] [address]., [address] Protein, ur ql Negative Negative UR Comment:Testing performed by : [address] [address] Glucose, ur ql Negative Negative RU Comment:Testing performed by : [address], [place]., [address] Ketones, ur Negative Negative RU Comment:Testing performed by : [address] [address] Bilirubin, ur Negative Negative RU Comment:Testing performed by : [address], [place]., [address] Blood, ur Negative Negative RU Comment:Testing performed by : [address], [place]., [address] Urobilinogen, ur <2.0 <2.0 mg/dL RU Comment:Testing performed by : [address] [address] Nitrite, ur Negative Negative RU Comment:Testing performed by : [address] [address] Leukocyte esterase, ur Negative Negative RU Comment:Testing performed by : [address] [address] UA reflex comment Reflex conditions for microscopic UA and culture not met. RU Comment:Testing performed by : [address] [address] Urine 11/06/2024 8:31 PM CODER OPERATOR 11/06/2024 8:33 PM CODER OPERATOR us Dennis Wolff MD LAB MICROBIOLOGY - GENERAL ORDERABLES Final Result RU [facility] Department [place] [address] from Last 3 Months Insurance [facility] * Guarantor: Jeanine Montoya Account Type Relation to Patient Date of Phone Billing Address Personal/Family Self [address] [place] [address] Care Teams Underwriting Service Representative Relationship Specialty Start Date End Date No, Physician PCP - General 05/20/21 Sarika Morrissey MD [address] [place] [phone] 12/09/20
--- OUTSIDE RECORDS SUMMARY | 2024-11-23 01:49 | XMS_ITS | Encounter Summary ---
Author Organization [facility] Address [address] [place] [address] Care Team Providers Care Cooker Sulfite Name Role Phone Unavailable Primary Care Provider [...] declined 06/12/2019 How often do you attend taoism or scientologist serv ices? Patient declined 06/12/2019 Do you belong to any clubs o r organizations such as taoism groups, unions, fraternal or athletic groups, or [...]
--- OUTSIDE RECORDS SUMMARY | 2024-11-23 01:49 | XMS_ITS | Clinical Summary ---
Author Organization [facility] Address [address] [facility] [address] [address] Phone Care Team Providers Care Rn Or Lpn Name Role Phone Unavailable Primary Care Provider Unavailabl e Allergies Active Allergy Reactions Criticality Noted Date Comments Prochlorperazine Anxiety Low 03/26/2021 Medications clonazePAM (KlonoPIN) 0.5 mg TabletIndication s:Generalized anxiety disorder Take 1 Tablet (0.5 mg) by mouth 2 times daily. 10 Tablet 06/24/20 20 Active PNV Comb #5-Raoc-SA-Benedicta 3 29-1-400 mg Combo Pack Take 1 [...] 04/22/20 22 Active naloxone (NARCAN) 4 mg/spray Almyra, Non-Aerosol EMERGENCY USE ONLY: Administer 1 spray [...] mouth daily. 30 Tablet 11/15/2024 4:08 PM FRAMER 11/13/19 25 Active amphetamine-dext roamphetamine (ADDERALL XR) 20 mg Extended Release 24 hour capsule Take 1 Capsule (20 mg) by mouth daily. 30 Capsule 11/19/2024 5:24 PM FRAMER 11/19/19 25 Active amphetamine-dext roamphetamine (Adderall XR) [...] STL ABSTRACTION Provider, Abstract 11/01/2024 3:00 PM FRAMER - 11/01/2024 11:59 PM FRAMER Hospital Encounter [facility] Oh [address] [place] [phone] Nikki Mckeon MD Discharge Disposition: Home or Self Care 10/30/2024 External Device Data STL ABSTRACTION Provider, Abstract 10/18/2024 3:00 PM FRAMER - 10/18/2024 11:59 PM FRAMER Hospital Encounter [facility] Oh [address] [place] [phone] Odell Bennett MD Discharge Disposition: Home or Self Care 09/20/2024 1:45 PM FRAMER - 09/20/2024 11:59 PM FRAMER Hospital Encounter [facility] Oh [address] [place] [phone] Odell Bennett MD Discharge Disposition: Home or Self Care 09/06/2024 10:00 AM FRAMER - 09/06/2024 11:59 PM FRAMER Hospital Encounter [facility] Oh [address] [place] [phone] Nikki Mckeon MD Discharge Disposition: Home or [...] declined 06/12/2019 How often do you attend holiness or uatsdin serv ices? Patient declined 06/12/2019 Do you belong to any clubs o r organizations such as holiness groups, unions, fraternal or athletic groups, or [...] place to sleep or slept in a care home (including now)? No 04/26/2022 Feeling Safe [...] UP PER FETUS Routine 11/01/2024 3:42 PM FRAMER Advanced maternal age in multigravida, third trimester History of delivery, currently Adderall use disorder, moderate (CMS/HCC) US OB FOLLOW UP PER FETUS Routine 10/18/2024 3:43 PM FRAMER Advanced maternal age in multigravida, third trimester History of delivery, currently Adderall use disorder, moderate (CMS/HCC) US OB FOLLOW UP PER FETUS Routine 09/20/2024 2:30 PM FRAMER Multigravida of advanced maternal age in second trimester Crohn's disease of colon with complication (CMS/HCC) Adderall use disorder, moderate (CMS/HCC) US OB FOLLOW UP + TV Routine 09/06/2024 10:40 AM FRAMER AMA (advanced maternal age) multigravida 35+, second trimester Placenta previa in second trimester CERV/VAG CYTO SCREEN PAP W/HPV Routine 10/07/2015 3:25 PM FRAMER Amenorrhea Positive blood test Screen for STD (sexually transmitted disease) Well woman exam with routine gynecological exam Screening for human papillomavirus from Last 3 Months or Most Recently Relevant to Health Maintenance Results * US OB FOLLOW UP PER FETUS (11/01/2024 3:42 PM FRAMER) Only the most recent of3 resultswithin the time period is included. Anatomical Region Laterality Modality Pelvis Ultrasound 11/01/2024 3:17 PM FRAMER Narrative 11/02/2024 8:15 AM FRAMER STL FOLLOW UP ----- Pat. Name: JEANINE OSORIO Study Date: 11/01/2024 3:17pm Pat. NO: [id number] Referring MD: SAMAN VACA MD Site: [place] Territory Manager: Stacie Pro RDMS : 1980 Age: 44 [...] Z36.2: Encounter for other screening follow-up Procedures 01406: Ultrasound, uterus, real time with image documentation, follow up, transabdominal approach per fetus HISTORY ----- OB History 8. Para 3 [id number] History of Two Vessel Cord and delivery [...] 4 lb 15 oz EFW by Hadlock ([id number]) Extremities / Bony Struc Biometry: FL / [...] and date of were verified by the air tucker prior to the exam IMPRESSION ----- 1. [...] Pat. Name:Kenan OSORIO Date:11/01/2024 3:17pm Pat. NO: [id number] MD:SAMAN VACA MD [facility] RD[facility] :1980Age:44 ----- INDICATION [...] formalformations Z36.2: Encounter for other screeningfollow-up Procedures 92472: Ultrasound, uterus, real time withimage documentation, follow up, transabdominal approach per fetus HISTORY ----- OB History 8. Para 3 [id number] History of Two Vessel Cord and delivery Medication Klonopin: 0.5mg METHOD ----- Transabdominal ultrasound examination ----- Cervantes . Number of fetuses: 1 DATING ----- GA by prior [id number] w + 4 d DOMENICA by prior [...] 4 lb 15 oz EFW by Hadlock ([id number]-[id number]-FL) Extremities / Bony Struc Biometry: FL / [...] and date of were verified by the air tucker prior tothe exam IMPRESSION ----- 1. Single [...] FOLLOW UP + TV (09/06/2024 10:40 AM FRAMER) Anatomical Region Laterality Modality Pelvis Ultrasound 09/06/2024 10:1 1 AM FRAMER Narrative 09/06/2024 10:44 AM FRAMER STL FOLLOW UP ----- Pat. Name: JEANINE OSORIO Study Date: 09/06/2024 10:11am Pat. NO: [id number] Referring MD: SAMAN VACA MD Site: [place] Manager: Catrina Pinto RDMS : 1980 Age: 44 [...] Z36.2: Encounter for other screening follow-up Procedures 26473: Ultrasound, uterus, real time with image documentation 65121: Ultrasound, uterus, real time with image documentation, follow up, transabdominal approach per fetus HISTORY ----- OB History 7. Para 2 Miscarriages 4 [id number] History of Two Vessel Cord and delivery [...] d Assigned DOMENICA: 12/09/2024 BIOMETRY ----- BPD 64.1 mm 25w 6d 19% Hadlock OFD 84.3 mm 27w 2d 73% Ricardo HC 237.6 mm 25w 6d 8% Hadlock AC 213.7 mm 25w 6d 21% Hadlock Femur 46.6 mm 25w 4d 11% Hadlock HC / AC 1.11 48% Nicolaides Weight Calculation: EFW 847 g 25w 3d 13% Hadlock EFW (lb,oz) 1 lb 14 oz EFW by Hadlock ([id number]-[id number]-FL) Extremities / Bony Struc Biometry: FL / BPD 0.73 FL / HC 0.20 FL / AC 0.22 GENERAL EVALUATION ----- Cardiac activity present. FHR 145 bpm. movements: present. Presentation: cephalic Placenta: Placental site: posterior. Placental zupr-fl-sqhragln os distance 21 mm Umbilical cord: Cord [...] and date of were verified by the air tucker prior to the exam. Nelli Willis was present for the transvaginal ultrasound and served as a vault custodian. IMPRESSION ----- Impression: Cervantes viable intrauterine at [...] Pat. Name:Kenan OSORIO Date:09/06/2024 10:11am Pat. NO: [id number] MD:SAMAN VACA MD [facility] Pinto RDMS :1980Age:44 ----- INDICATION [...] drugs Z36.2: Encounter for other screeningfollow-up Procedures 69442: Ultrasound, uterus, real time withimage documentation 92513: Ultrasound, uterus, real time withimage documentation, follow up, transabdominal approach per fetus HISTORY ----- OB History 7. Para 2 Miscarriages 4 [id number] History of Two Vessel Cord and delivery Medication Klonopin: 0.5mg MATERNAL ASSESSMENT ----- Physical Exam Weight 64 kg. BMI 24.02 kg/m METHOD ----- Transabdominal and transvaginal ultrasound examination ----- Cervantes . Number of fetuses: 1 DATING ----- GA by prior w + 4 d DOMENICA by prior [...] 1 lb 14 oz EFW by Hadlock ([id number]) Extremities / Bony Struc Biometry: FL / BPD 0.73 FL / HC 0.20 FL / AC 0.22 GENERAL EVALUATION ----- Cardiac activity present. FHR 145 bpm. movements: present.Presentation: cephalic Placenta: Placental site: posterior. Placental dyhf-of-laqddpoq osdistance 21 mm Umbilical cord: Cord vessels: [...] and date of were verified by the air tucker prior tothe exam. Nelli Willis was present [...] Final Result * CERV/VAG CYTOPATH, THIN PREP PC MAINTENANCE TECHNICIAN AND HPV (CP) (10/07/2015 3:25 PM FRAMER) CLINICAL INFORMATION SEE COMMENT 10/14/2015 3:30 PM FR[facility]ER [facility] Comment:Information not prov ided LAST MENSTRUAL PERIOD SEE COMMENT 10/14/2015 3:30 PM FRAMER [facility] Comment:Information not prov ided PREV PAP: SEE COMMENT 10/14/2015 3:30 PM FRAMER [facility] Comment:Information not prov ided PREV BX: SEE COMMENT 10/14/2015 3:30 PM FRAMER [facility] Comment:Information not prov ided SOURCE Endocervix 10/14/2015 3:30 PM FRAMER [facility] ADEQUACY: SEE COMMENT 10/14/2015 3:30 PM FRAMER [facility] Comment: Satisfactory for evaluation. Endocervical/transformation zone component present. Age and/or menstrual status not provided INTERPRETATION SEE COMMENT 10/14/2015 3:30 PM FRAMER [facility] Comment:Negative for intraep ithelial lesion or malignancy. COMMENT SEE COMMENT 10/14/2015 3:30 PM [facility] Comment: This Pap test has been evaluated with computer assisted technology. COLLECTIONS SPECIALIST: SEE COMMENT 10/14/2015 3:30 PM [facility] Comment: BETHANY DOMINGUEZ(ASCP) CT screening location: [place] [address] [address] [address] HPV E6/E7 Not Detected Not Detected 10/14/2015 3:30 PM [facility] Comment: This test was performed using the APTIMA HPV Assay ([employer] This assay detects E6/E7 viral messenger RNA (mRNA) from 14 high-risk HPV types (16,18,31,33,35,39,45,51,52,56,58,59,66,68). Endocervical Collection / Unknown 10/07/2015 3:25 PM FRAMER 10/07/2015 9:19 PM FRAMER Narrative [facility] - 10/14/2015 3:30 PM FRAMER Performing Organization Information: Site ID: Name: [facility] Address: [address] [place] [address] Director: Minor Patrick MD Lady Will NP PATHOLOGY/CYTOLOGY ORDERABLES Fi nal Result [facility] [address] [place] [address], from Last 3 Months or Most Recently Relevant to Health Maintenance [place] [address] MEDICAID [place] [employer] Commercial Advance Directives For more information, please contact: [phone] * Full Code (Latest Code Status on [...]
--- OUTSIDE RECORDS SUMMARY | 2024-11-23 01:49 | XMS_ITS | Continuity of Care Document ---
Author Organization [facility] Address [address] [facility] [place] [address] Phone Care Team Providers Care Weighbridge Operator Name Role Phone Unavailable Unavailable Unavailable Advance Directives Directive Yes / No Effective Date File Name No Information Encounters Encounter Description Practice Location Reason(s) For Visit Diagnoses Date Provider Providers Copied on Encounter [facility], [address] [facility], [place], [place], [id number], tel:[phone] [facility] OUTPATIENT No Information 201 [id number] No Information Referring Provider: RAYSA DOWLING, [address] [facility] [address], [place], [address]. tel:[phone] Family History Family Member Type Diagnosis Age At Onset No Information Payers Payer name Insurance type Covered democrat ID Authoriza tiusha(s) [facility] [id number] Social History Type Description Quantity Date Captured Comments Sex Female Smoking Status No Information Chief Complaint And Reason For Visit No Information History Of Present Illness Encounter Date Complaint History Of Prese nt Illness No Information Instructions Date Instruction Additional Infor mation No Information Assessments Type Assessment Date No Information
--- OUTSIDE RECORDS SUMMARY | 2024-11-23 01:49 | XMS_ITS | Clinical Summary ---
Author Organization [facility] Virtual Care Address [address] [place] [id number] Phone Care Team Providers Care Automotive Service Manager Name Role Phone No, Physician Primary Care Provider [phone] Sarika Morrissey MD Unavailable [phone] Allergies Active Allergy Reactions Criticality Noted Date Comments Prochlorperazine Mental status changes Low 12/09/19 21 Medications vit 40-ucvg-iiwox-dha 27mg iron- 800 mcg-250 mg capsule Take [...] Department Care Team Description 11/06/2024 7:49 PM BIKE DESIGNER - 11/06/2024 9:18 PM BIKE DESIGNER Emergency [facility] OB Emergency Department [address] [place] [address] Rob Abdul MD Pelvic pain affecting in third trimester, antepartum (Primary Dx); 35 weeks gestation of Discharge Disposition: Discharge to home or self care from Last 3 Months Surgical History Surgery Date Site/Laterality Comments INDUCED UPPER GASTROINTESTINAL ENDOSCOPY SECTION Medical History Medical History Date Comments Meningitis Crohn's colitis (CMS/HCC) (HCC) Anxiety Yanique-Danlos syndrome Crohn's disease (CMS/HCC) ([facility]) Adhd Social History Tobacco Use Types Packs/Day [...] any time in the past 12 m [facility], were you homeless or living in a [...] on file Legal Sex Female 9:12 PM BIKE DESIGNER Gender Identity Not on file Sexual Orientation [...] Estimated Date of Delivery 11/06/2024 - Present (11/23/2024) 12/09/2024 (set by Marita Trimble, RN on 11/06/2024 based on Patient Reported) Dating Summary Based On [place] Diff Patient Reported 12/09/2024 Working Vitals Pregravid Weight Height TWG (As of 11/23/2024) Pregrav id BMI 162.6 cm (5' 4 ) Date GA Fund Present FHR Mvmt BP Weight Edema Alb Glu Ket Dil/ Eff/Sta 35w2d Inpatient data not displayed here. See encounter summary. Last Filed Vital Signs Vital Sign Reading Time Taken Comments Blood Pressure 122/74 11/06/2024 8:05 PM BIKE DESIGNER Pulse 113 11/06/2024 8:05 PM BIKE DESIGNER Temperature 36.7 C (98.1 F) 11/06/2024 8:05 PM BIKE DESIGNER Respiratory Rate 18 11/06/2024 8:05 PM BIKE DESIGNER Oxygen Saturation 100% 11/06/2024 8:05 PM BIKE DESIGNER Inhaled Oxygen Concentration - - Weight 69.9 kg (154 lb) 11/06/2024 8:28 PM BIKE DESIGNER Height 162.6 cm (5' 4 ) 11/06/2024 8:28 PM BIKE DESIGNER Body Mass Index 26.43 11/06/2024 8:28 PM BIKE DESIGNER Plan of Treatment Health Maintenance Due Date [...] MICROSCOPIC AND CULTURE STAT 11/06/2024 8:31 PM BIKE DESIGNER from Last 3 Months Results * Urinalysis reflex to microscopic and culture Urine (11/06/2024 8:31 PM BIKE DESIGNER) Color, ur Straw Yellow Comment:Testing performed by : [address] [address] Clarity, ur Clear Clear RU Comment:Testing performed by : [address] [address] Specific gravity, ur 1.005 1.003 - 1.030 RU Comment:Testing performed by : [address] [address] pH, urine 6.5 RU Comment: Interpretive Data U rine pH is affected by diet, medications, systemic acid-base disturbances, and renal tubular function. pH may affect urinary stone formation. For example, urine pH below 6.0 may help reduce the tendency for calcium phosphate stones and pH greater than 6.0 may reduce the tendency for uric acid stone formation. Source: [facility] Current Interpretive Data was last revised on 2017 Testing performed by: [facility], [address] [place] [address], [place]., [address] Protein, ur ql Negative Negative RU Comment:Testing performed by : [facility], [address] [place] [address], [place]., [address] Glucose, ur ql Negative Negative RU Comment:Testing performed by : [facility], [address] [place] [address], [place]., [address] Ketones, ur Negative Negative CERMELVIN Comment:Testing performed by : [facility], [address] [place] [address], [place]., [address] Bilirubin, ur Negative Negative RU Comment:Testing performed by : [address], [place]., [address] Blood, ur Negative Negative RU Comment:Testing performed by : [address], [place]., [address] Urobilinogen, ur <2.0 <2.0 mg/dL RU Comment:Testing performed by : [address], [place]., [address] Nitrite, ur Negative Negative RU Comment:Testing performed by : [address], [place]., [address] Leukocyte esterase, ur Negative Negative RU Comment:Testing performed by : [address], [place]., [address] UA reflex comment Reflex conditions for microscopic UA and culture not met. RU Comment:Testing performed by : [address], [place]., [address] Urine 11/06/2024 8:31 PM BIKE DESIGNER 11/06/2024 8:33 PM BIKE DESIGNER us Dennis Wolff MD LAB MICROBIOLOGY - GENERAL ORDERABLES Final Result RU SOTO [address] [facility] [place] [address] from Last 3 Months Insurance [facility] Care Teams Automotive Service Manager Relationship Specialty Start Date End Date No, Physician PCP - General 05/20/21 Sarika Morrissey MD [address] [place] [phone] 12/09/20
--- OUTSIDE RECORDS SUMMARY | 2024-11-23 01:49 | XMS_ITS | Encounter Summary ---
Author Organization [facility] Address [address] [place] [address] Care Team Providers Care Check Viewer Name Role Phone Chidi Slaughter DO Primary [...] Type: Triage Call Addendum Date and Time [id number] Presenting Problem: I'm 18 weeks and I need my Clonazepam refilled. Report feedback to Dr. Ivone Emmanuel <<<<<<<< TRIAGE NOTE >>>>>>>> Triage Note: Frozen Meat Cutter Michell Wolff added this note on Dec [...] office. Please contact pt about the script. Frozen Meat Cutter [email or web address] added this note on Dec 31 [...] how [place] [facility] [place] office in [place]. Support was given. <<<<<<<< TRIAGE/OUTCOME >>>>>>>> Guideline [...] documented as of this encounter Care Teams Check Viewer Relationship Specialty Start Date End Date Chidi Slaughter DO PCP - General Internal Medicine 09/21/19 10/24/19 documented as of this encounter
--- OUTSIDE RECORDS SUMMARY | 2024-11-23 01:49 | XMS_ITS ---
Author Name Adan Canchola Address [address] [place] [address] Phone [phone] [facility] Address [address] [place] [address] Phone [phone] Care Team Providers Care Scale Clerk Name Role Phone Adan Canchola Attending Physician Functional Status No Results Mental Status No Results Allergies and Intolerances Name Onset Date Reaction Severity PROCHLORPERAZINE (Allergy) TueJul 04 08:00:00 E DT 2020 Encounters Program Name Primary Diagnosis Admission Date/Time Dis charge Date/Time Adult Mental Health Generalized anxiety disorder TueFebruary 28 09:00:00 EDT 2019 Problems Active Concerns * Generalized anxiety disorder* Code: 06059725 * Start Date: TueFebruary 28 08:00:00 EDT 2019 * End Date: * Text: * Tobacco use disorder* Code: [id number] * Start Date: * End Date: * Text: * ADHD* Code: [id number] * Start Date: * End Date: * Text: * Chronic major depressive disorder, recurrent episode* Code: 72152451 * Start Date: * End Date: * Text: * Insomnia* Code: 791683877 * Start Date: * End Date: * Text: * Tobacco use disorder, continuous* Code: 285413373 * Start Date: * End Date: * Text: * ADHD (attention deficit hyperactivity disorder), combined type* Code: 67429928 * Start Date: * End Date: * Text: * Cannabis use disorder, moderate* Code: 63606940 * Start Date: * End Date: * Text: Reason for Referral Past Medical History
--- OUTSIDE RECORDS SUMMARY | 2024-11-23 01:49 | XMS_ITS | Encounter Summary ---
Author Organization [facility] Address [address] [place] [address] Care Team Providers Care Home Restoration Service Supervisor Name Role Phone Unavailable Primary Care [...] declined 06/12/2019 How often do you attend latter-day or jainism serv ices? Patient declined 06/12/2019 Do you belong to any clubs o r organizations such as latter-day groups, unions, fraternal or athletic groups, or [...]
--- OUTSIDE RECORDS SUMMARY | 2024-11-23 01:49 | XMS_ITS | Clinical Summary ---
Author Organization [facility] [place] Address [address] [address] Care Team Providers Care Sheet Metal Welder Name Role Phone Unavailable Primary Care Provider Unavailabl e Source Comments [facility],non-owned Affiliates and Associated Physician Practices is amultiple site organization consisting of ambulatory clinics and hospital sitesin [place], [place], [place] and [place]. This disclosure is being madepursuant to the Care Everywhere program and may not contain all information available regarding this patient. Last updated 18.[facility] [place] Allergies Active Allergy Reactions Criticality Noted Date [...] 36.9 C (98.4 F) 09/29/2019 11:09 PM CLINICAL SOCIOLOGIST Respiratory Rate 16 08/01/2023 8:17 AM CDT Oxygen Saturation 96% 09/30/2019 1:20 AM CLINICAL SOCIOLOGIST Inhaled Oxygen Concentration - - Weight 49.9 [...] if suspicious findings are present clinically. An [employer] certified facility. [facility] Breast Centers utilize [employer] as a reminder system to notify patients [...]
--- OUTSIDE RECORDS SUMMARY | 2024-11-23 01:49 | XMS_ITS | Encounter Summary ---
Author Organization [facility] Address [address] [place] [address] Care Team Providers Care Administrative Services Director Name Role Phone Unavailable Primary Care Provider [...] How often do you attend sabianist or latter-day serv ices? Patient declined 06/12/2019 Do you [...]
[2024-11-23 08:09] LABS: Basophils Absolute Auto 0.1 K/mm3 (0.0-0.1); Basophils Percent Auto 0.5 % (0.2-1.2); Eosinophils Absolute Auto 0.5 K/mm3 (0-0.3); Eosinophils Percent Auto 3.4 % (0-4.4); Hematocrit 25.7 % (37.0-47.0); Hemoglobin 8.5 g/dL (12.0-15.0); Immature Granulocyte Absolute 0.28 K/mm3 (0.00-0.031); Immature Granulocyte Percent A 1.8 % (0-0.5); Lymphocytes Absolute Auto 2.93 K/mm3 (0.9-3.2); Lymphocytes Percent Auto 19.1 % (18.3-44.2); Mean Corpuscular HGB Conc 33.1 g/dl (32-36); Mean Corpuscular Hemoglobin 29.6 pg (26-34); Mean Corpuscular Volume 89.5 fl (80-100); Mean Platelet Volume 10.4 fl (7.4-10.4); Monocytes Absolute Auto 1.5 K/mm3 (0.1-0.6); Monocytes Percent Auto 9.9 % (2.6-8.5); Neutrophils Percent Auto 65.3 % (45.5-73.1); Nucleated Red Blood Cells Perc 0.7 % (0.0-0.2); Platelet Count Result 322 k/mm3 (150-375); Red Blood Count 2.87 M/mm3 (4.2-5.4); Red Cell Distribution Width 13.6 % (11.5-14.5); White Blood Count 15.3 K/mm3 (4.5-10.0)
[2024-11-23] MEDS: FAMOTIDINE 20 MG/2 ML VIAL IV PUSH (08:10)
[2024-11-23 08:19] LABS: Alanine Aminotransferase 12 U/L (6-35); Albumin Level 2.9 g/dL (3.5-5.1); Alkaline Phosphatase 183 U/L (38-126); Anion Gap 7 mmol/L (4-12); Aspartate Amino Transferase 24 U/L (14-36); Bilirubin,Total 0.3 mg/dL (0.2-1.3); Blood Urea Nitrogen 9 mg/dL (7-17); Calcium 8.8 mg/dL (8.4-10.2); Carbon Dioxide 20 mmol/L (22-30); Chloride 107 mmol/L (98-107); Estimated CRCL calculation 105 ml/min; Estimated Glomerular Filt Rate > 60; Glucose 99 mg/dL (65-110); Potassium 3.6 mmol/L (3.4-5.0); Sodium 134 mmol/L (137-145)
[2024-11-23] MEDS: LACTATED RINGERS 1,000 ML 125 ML IV CONT (08:20)
[2024-11-23 08:21] LABS: Uric Acid 5.7 mg/dL (2.5-7.5)
[2024-11-23] MEDS: ACETAMINOPHEN 500 MG TABLET 1000 MG PO (08:21)
--- NOTE | 2024-11-23 08:22 | WPDANESEPPF ---
Anes - Initial Pre Proc Eval Procedure: Operation Date: 11/23/24 09:30 Proposed Procedures p Repeat Section with Bilateral Salpingectomy - Destinee Shearer MD Date/Time: 11/23/24 08:22 Surgeon: Destinee Shearer MD Pre Op Diagnosis: C Section Patient Data Age: 44 Gender: F Height: 1.63 m Weight: 73.1 kg Last Vital Signs Pulse 92 11/23/24 08:17 BP 127/81 11/23/24 08:17 O2 Del Method Room Air 11/23/24 08:07 Allergies Allergy/AdvReac Type Severity Reaction Status Date / Time prochlorperazine (From Allergy Unknown SKIN Verified 11/23/24 07:47 Compazine) CRAWLING Home Medications ?Medication ?Instructions ?Recorded ?Confirmed ?Type dextroamphetamine-amphetamine ER 20 mg PO DAILY 11/13/24 11/20/24 History 20 mg 24hr capsule,extend release (Adderall XR) vit no.95-ferrous 1 tablet PO DAILY 11/13/24 11/20/24 History fumarate 28 mg-folic acid 800 mcg tablet () valacyclovir 500 mg tablet 500 mg PO Q12H 11/20/24 11/20/24 History Laboratory Tests 11/23/24 07:56 WBC 15.3 H K/mm3 (4.5-10.0) RBC 2.87 L M/mm3 (4.2-5.4) Hgb 8.5 L g/dL (12.0-15.0) Hct 25.7 L % (37.0-47.0) MCV 89.5 fl (80-100) MCH 29.6 pg (26-34) MCHC 33.1 g/dl (32-36) RDW 13.6 % (11.5-14.5) Plt Count 322 k/mm3 (150-375) MPV 10.4 fl (7.4-10.4) Immature Gran % (Auto) 1.8 H % (0-0.5) Neut % (Auto) 65.3 % (45.5-73.1) Lymph % (Auto) 19.1 % (18.3-44.2) [place] % (Auto) 9.9 H % (2.6-8.5) Eos % (Auto) 3.4 % (0-4.4) Baso % (Auto) 0.5 % (0.2-1.2) Lymph # (Auto) 2.93 K/mm3 (0.9-3.2) [place] # (Auto) 1.5 H K/mm3 (0.1-0.6) Eos # (Auto) 0.5 H K/mm3 (0-0.3) Baso # (Auto) 0.1 K/mm3 (0.0-0.1) Abs Immat Gran (auto) 0.28 H K/mm3 (0.00-0.031) Absolute Neuts (auto) 10.0 H K/mm3 (1.3-6.7) Absolute Nucleated RBC 0.100 H K/mm3 (0.0-0.012) Nucleated RBC % 0.7 H % (0.0-0.2) Sodium 134 L mmol/L (137-145) Potassium 3.6 mmol/L (3.4-5.0) Chloride 107 mmol/L (98-107) Carbon Dioxide 20 L mmol/L (22-30) Anion Gap 7 mmol/L (4-12) BUN 9 mg/dL (7-17) Creatinine 0.58 L mg/dL (0.7-1.0) Estim Creat Clear Calc 105 ml/min Estimated GFR > 60 (59 - ) Glucose 99 mg/dL (65-110) Uric Acid 5.7 mg/dL (2.5-7.5) Calcium 8.8 mg/dL (8.4-10.2) Total Bilirubin 0.3 mg/dL (0.2-1.3) AST 24 U/L (14-36) ALT 12 U/L (6-35) Alkaline Phosphatase 183 H U/L (38-126) Total Protein 6.0 L g/dL (6.3-8.2) Albumin 2.9 L g/dL (3.5-5.1) RPR Pending HIV 1&2 Ab/P24 Ag 4thGn Pending Blood Type Pending Antibody Screen Pending Patient hx anesthesia problems: none Family hx anesthesia problems: none Results Review: All pre-operative results and documents have been reviewed as part of the pre-operative evaluation. [facility] Family History Family History Mother Irregular heart beat Social History Social History Years smoked: 10 Smoking status: Light tobacco smoker Tobacco type: e-cigarettes/vaping Second hand tobacco smoke exposure: No Substance use: current Other substance usage details: THC gummies for crohns Do You Feel Safe in your Home?: Yes Lack of Transportation: No Lack of Food: Never True Current Housing: I Have Housing Concerned About Future Housing: No Difficulty Paying Gas/Electric Bills: No Difficulty Paying for Meds: No Currently Unemployed: No Education: High School Diploma/GED Difficulty w/ Childcare or Family Care: No Spiritual care concerns: No Anes - Eval Final PreProcedure Day of Procedure 11/23/24 08:22 Patient weight: overweight Heart: regular rate and rhythm Lungs: decreased breath sounds Airway: Mallampati scale class II Neurological: alert and oriented Last oral intake: >/= 8 hours ASA classification: III Emergent: no Anesthetic plan: proceed Anesthesia type and monitoring: regional spinal and standard monitoring Results Review: All pre-operative results and documents have been reviewed as part of the pre-operative evaluation. Informed Consent: The patient's anesthetic plan and its attendant risks and benefits were discussed with the patient/family/POA. Questions were solicited and answers provided to the satisfaction of the patient/family/POA.
--- NOTE | 2024-11-23 08:28 | WPDHPUPDATE1 ---
History and Physical Update Update Date/Time: 11/23/24 08:28 History and Physical has been reviewed, including an updated exam of the patient. There are NO changes in the patient's condition. Risks, benefits, and alternatives have been discussed and questions answered. Patient agrees to proceed with procedure.
--- NOTE | 2024-11-23 08:28 | PM.IMHP ---
H&P: HPI History of Present Illness Date/Time: 11/23/24 08:28 Chief Complaint: Preeclampsia Narrative: The patient is a 44-year-old 9 para 3 aborta 5 at 37 and 4 7th weeks admitted for repeat secondary to preeclampsia. Patient with epigastric pain but PIH labs are normal today. Patient initially had planned tubal ligation but has changed her mind. initially complicated by placenta previa which did resolve. Patient with advanced maternal age has been followed by Maternal- Medicine for anatomy and growth scans which have all been about the 20th percentile. Anatomy scan was normal. NIPT was negative. labs A-positive , Rubella immune, RPR negative, hepatitis-B surface antigen negative, HIV negative, group B strep positive. Patient has been anemic since 28 weeks and taking iron. Current hemoglobin is 8.3. Patient was aware she may need a blood transfusion. She did receive an iron transfusion on . 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 Family History Family History Mother Irregular heart beat Social History Social History Years smoked: 10 Smoking status: Light tobacco smoker Tobacco type: e-cigarettes/vaping Second hand tobacco smoke exposure: No Substance use: current Other substance usage details: THC gummies for crohns Do You Feel Safe in your Home?: Yes Lack of Transportation: No Lack of Food: Never True Current Housing: I Have Housing Concerned About Future Housing: No Difficulty Paying Gas/Electric Bills: No Difficulty Paying for Meds: No Currently Unemployed: No Education: High School Diploma/GED Difficulty w/ Childcare or Family Care: No Spiritual care concerns: No Meds Home Medications and Allergies Home Medications ?Medication ?Instructions ?Recorded ?Confirmed ?Type dextroamphetamine-amphetamine ER 20 mg PO DAILY 11/13/24 11/20/24 History 20 mg 24hr capsule,extend release (Adderall XR) vit no.95-ferrous 1 tablet PO DAILY 11/13/24 11/23/24 History fumarate 28 mg-folic acid 800 mcg tablet () valacyclovir 500 mg tablet 500 mg PO Q12H 11/20/24 11/20/24 History Allergies Allergy/AdvReac Type Severity Reaction Status Date / Time prochlorperazine (From Allergy Unknown SKIN Verified 11/23/24 07:47 Compazine) CRAWLING Vital Signs Vital Signs - 24 hr 11/23/24 08:07 11/23/24 08:15 11/23/24 08:17 Pulse Rate 90 92 Blood Pressure 123/67 127/81 Oxygen Delivery Room Air Exam Const: General: healthy appearing and alert Orientation/consciousness: patient oriented x3 Resp: Effort & Inspection: normal respiratory effort Auscultation: clear to auscultation bilaterally GI: GI Palp: Yes abdominal tenderness (Epigastric mild), Yes Soft to palpation, No Tenderness to palpation present (GI) and Yes Other GI palpation findings present (Gravid with a fundal height of 36) Auscultation: other ( heart tones category 1) : External Female Exam: normal external appearance Speculum Exam - Vagina: normal appearance of the vagina and normal vaginal discharge Bimanual exam- vagina & uterus: consistency normal Bimanual Exam- Adnexa, other: normal adnexae and No adnexal tenderness Neuro: General: patient oriented x3 H&P: Results Labs Labs: Short CBC 11/23/24 Range/Units 07:56 WBC 15.3 H (4.5-10.0) K/mm3 Hgb 8.5 L (12.0-15.0) g/dL Hct 25.7 L (37.0-47.0) % Plt Count 322 (150-375) k/mm3 BMP 11/23/24 07:56 Sodium 134 L Potassium 3.6 Chloride 107 Carbon Dioxide 20 L BUN 9 Creatinine 0.58 L Glucose 99 Calcium 8.8 Liver Function 11/23/24 Range/Units 07:56 Total Bilirubin 0.3 (0.2-1.3) mg/dL AST 24 (14-36) U/L ALT 12 (6-35) U/L Alkaline Phosphatase 183 H (38-126) U/L Albumin 2.9 L (3.5-5.1) g/dL Assessment and Plan Assessment and plan (1) 37 weeks gestation of : Code(s): Z3A.37 - 37 weeks gestation of Status: Acute (2) History of : Code(s): Z98.891 - History of uterine scar from previous surgery Status: Acute Assessment and Plan: Plan to proceed with repeat section (3) Preeclampsia: Code(s): O14.90 - Unspecified pre-eclampsia, unspecified trimester Status: Acute Assessment and Plan: Indication for delivery
[2024-11-23 08:43] LABS: Rapid Plasma Reagin Non-Reactive (NonReactive)
[2024-11-23 09:07] LABS: HIV 1/2 Ab P24 Ag Result Negative (Negative)
[2024-11-23] MEDS: ONDANSETRON INJ 4 MG/2 ML VIAL IV PUSH ×3 (09:12→20:04)
[2024-11-23] MEDS: ceFAZolin 2 GM/D5W 50 ML 2 GM/50 ML BAG IVPB (09:15)
--- NOTE | 2024-11-23 10:11 | W.PM.PROC2 ---
Procedure Note - Detailed Date of Procedure 11/23/24 Pre-op Diagnosis Intrauterine at 37 and 4 7th weeks previous section preeclampsia Post-op Diagnosis Same Procedure Performed repeat low-transverse section Surgeon Destinee Shearer MD Anesthesia Spinal Findings Male infant weighing 6lb 5oz with 8 [id number] and 9 [id number] Apgars. Normal-appearing tubes, ovaries, uterus. Description of Procedure The patient was taken to the operating room and placed under anesthesia in the dorsal supine position. She was prepped and draped in the usual sterile fashion. Once anesthesia was deemed adequate a Pfannenstiel skin incision was made 2cm above the symphysis pubis. Patient's prior incision was basically at the symphysis pubis therefore we wait a little bit higher for this incision. The incision was carried down to the fascia which was nicked in the midline using the scalpel and extended laterally using Horton scissors. The O[facility] was used to tent the fascia which was then dissected off using sharp and blunt dissection. The rectus muscles were in the midline and the peritoneum tented and entered with Metzenbaum scissors. The incision was extended with blunt traction. The bladder blade was placed and the bladder noted to be attached very low on the cervix. It was left in place. A low-transverse uterine incision was made with a scalpel and extended with blunt traction. The 's head was deep in the pelvis and elevated to the incision. The assistant warehouse manager then applied fundal pressure the head was delivered. The remainder of the infant delivered quickly. Delayed cord clamping for [id number] was performed. The cord was then clamped and cut and the infant handed to the waiting nursery nurse. The placenta is removed using manual traction after cord blood and cord gases were drawn. The uterus was cleared of all clots and debris and exteriorized. The uterine incision was closed using 0 Monocryl in a running locked fashion with a suture used to imbricate. The cul-de-sac is irrigated and the uterus returned to the abdomen. The gutters are irrigated. The incision was inspected and noted to be hemostatic. The fascia was closed using 0 Vicryl in a running fashion. Subcutaneous tissues were irrigated and made hemostatic using Bovie cautery. The skin incisions closed using 4-0 Vicryl in a subcuticular fashion. The Dermaflex was placed over the incision. At the end of the case a minimal oozing was noted from the right edge. A pressure dressing was placed. Sponge, needle, and instrument counts are correct per the OR staff. The patient was taken to recovery in stable condition. Patient received Ancef prior to incision. Estimated Blood Loss 240 Drains Yes ( Bautista catheter) Packing No Pathology Yes ( placenta) Complications No immediate complications Condition Stable Disposition Floor
--- NOTE | 2024-11-23 10:15 | PM.OBDSVD ---
DS: Admitting Diagnosis Discharge Date 11/25/24 Admitting Diagnosis intrauterine at 37 and 4/7 preeclampsia previous OB - DS: Summary OB Procedures : NST, PIH Mgmt and Ultrasound OB Procedures Intrapartum: low cervical, transverse OB Procedures: : None Peripartum Data Infant Delivery Method: Section Procedures: Procedures Operation Date: 11/23/24 09:30 <No data on this case meets the specified criteria> complications: none Status at Discharge Functional status at discharge: independent ambulation Overall status at discharge: patient is progressing back to baseline Time Spent with Patient Time attestation: Total time spent providing and/or coordinating discharge services: DS: Data Data Completed and Pending Labs on day of discharge: Labs from last 24 hours 11/23/24 07:56 WBC 15.3 H RBC 2.87 L Hgb 8.5 L Hct 25.7 L MCV 89.5 MCH 29.6 MCHC 33.1 RDW 13.6 Plt Count 322 MPV 10.4 Immature Gran % (Auto) 1.8 H Neut % (Auto) 65.3 Lymph % (Auto) 19.1 [place] % (Auto) 9.9 H Eos % (Auto) 3.4 Baso % (Auto) 0.5 Lymph # (Auto) 2.93 [place] # (Auto) 1.5 H Eos # (Auto) 0.5 H Baso # (Auto) 0.1 Abs Immat Gran (auto) 0.28 H Absolute Neuts (auto) 10.0 H Absolute Nucleated RBC 0.100 H Nucleated RBC % 0.7 H Sodium 134 L Potassium 3.6 Chloride 107 Carbon Dioxide 20 L Anion Gap 7 BUN 9 Creatinine 0.58 L Estim Creat Clear Calc 105 Estimated GFR > 60 Glucose 99 Uric Acid 5.7 Calcium 8.8 Total Bilirubin 0.3 AST 24 ALT 12 Alkaline Phosphatase 183 H Total Protein 6.0 L Albumin 2.9 L RPR Non-reactive HIV 1&2 Ab/P24 Ag 4thGn Negative Blood Type A Positive Antibody Screen Negative Discharge Plan Discharge Attending physician on discharge: Destinee Shearer Discharging Clinician: Destinee Shearer Anticipated Discharge Date/Time: 11/26/24 10:16 Patient Disposition: Home, Self-Care Activity: may shower, may drive after 2 weeks and pelvic rest Diet: regular Wound Care Instructions: incision open to air Patient Instructions: Antibiotic Form Patient Language: Japanese Stand Alone Forms: General Discharge Information Follow-up/Referrals: Destinee Shearer MD [Physician] - 1 Week ( and 6 week) Discharge Medications: New oxycodone 5 mg tablet 5 mg PO Q8H PRN (Reason: pain) Qty: 20 0RF Continued valacyclovir 500 mg tablet 500 mg PO Q12H PNV cmb#95-ferrous fumarate-FA [] 28 mg iron- 800 mcg tablet 1 tablet PO DAILY dextroamphetamine-amphetamine [Adderall XR] 20 mg capsule,extended release 24hr 20 mg PO DAILY Date of admission: 11/23/24 07:35 Primary Care Provider: UNKNOWN,DOCTOR Admitting Provider: Destinee Shearer Attending physician on admission: Destinee Shearer Condition: Stable
[2024-11-23] MEDS: MORPHINE SULFATE INJ (*CRX) 10 MG/ML AMP 3 MG IV PUSH (10:53)
[2024-11-23] MEDS: OXYTOCIN 30 UNITS/NS 500 ML 30 UNITS/500 ML BAG 125 UNITS IV CONT (11:07)
[2024-11-23] MEDS: HYDROcodone/acetaminophen (*CRX) 10-325 MG TABLET 1 TAB PO (13:34)
[2024-11-23] MEDS: SIMETHICONE 80 MG TAB.CHEW PO ×2 (13:35→17:04)
[2024-11-23] MEDS: ACETAMINOPHEN 325 MG TABLET 650 MG PO ×2 (14:03→20:23)
--- NOTE | 2024-11-23 14:30 | PC.NURSE ---
1330- Patient newly admitted to unit. Baby is showing feeding cues and mom requests assistance. When entering the room, grandma is holding baby and mom is trying to eat. Since baby was sleeping peacefully and mom had a lot of visitors in the room, encouraged her to eat first and then we will try to feed baby. Reported to primary RN, who is taking mom pain medicine and needs to assess her and baby. The artificial cherry maker is also here to evaluate baby. 1430- Primary RN requested feeding assistance because baby is awake and showing cues again. Mom had baby at the breast but he was not latched or suckling. We tried to awaken him and encourage a deep latch. He did have one good latch and sucked once but then stopped and we couldn't get him to wake again. Encouraged mom to wait 30 minutes and try again or anytime she sees feeding cues. We reviewed that newborns are very sleepy after delivery. Mom agrees to this plan and has the name/number. Reported to primary RN.
--- NOTE | 2024-11-23 15:30 | PC.NURSE ---
1530- Went to room to attempt to wake infant to feed. Mom says she is too nauseous to breastfeed at this time and wants to wait to feed. Primary RN is going to give her some medicine and we will try again soon. 1600- Attempted to wake to feed. Mom had him swaddled in the crib, so we undressed and stimulated him to wake. He gave a few signs that he might rouse but when placed next to mom, he would not open his mouth. We tried for several minutes without any attempts from baby to latch. Mom is tearful off and on. She states that she had a son that was in the NICU with a feeding tube due to his inability to feed. We discussed normal behavior and that many moms and babies experience this feeding struggle in the first day after delivery. We discussed that if baby goes 6 hours without feeding we will check a blood sugar to ensure he is maintaining it well. Mom will keep him skin to skin and we will check back in half an hour. Reported to primary RN. 1630- Baby still skin to skin with mom but not giving any feeding cues. Mom said that he did search once for the breast but didn't latch. Blood sugar was 56 at this time and the hot iron worker is ok with giving baby some more time before needing to supplement. Mom really does not want to give formula. Advised primary RN that we should use caution with considering attempts as feeds for this baby because mom has some risk factors for low milk production (preeclampsia, advanced maternal age, prescription drug use through and THC use) and baby is 37 weeks gestation. Attempts that count as feedings should be reserved for those babies who are term and stable. If baby doesn't wake and begin feeding mom will most likely need to start pumping and supplementing tonight. Discussed with primary RN. Patient has the number and knows to call out for assistance as needed.
[2024-11-23] MEDS: POLYSACCHARIDE IRON COMPLEX 150 MG CAPSULE PO (17:04)
[2024-11-23] MEDS: DOCUSATE SODIUM 100 MG CAPSULE PO (17:04)
[2024-11-23] MEDS: DEXTROSE 5%/0.45% SOD CHL 1,000 ML 125 ML IV CONT (17:05)
[2024-11-23] MEDS: oxyCODONE HCL (*CRX) 5 MG TAB IR PO (18:35)
--- NOTE | 2024-11-23 19:05 | OBPPTRN ---
1310-Patient transferred to post room #[id number] via stretcher. Support person present. Oriented to unit, room, information board, rooming in, admission packet and security measures. Patient verbalizes understanding.
--- NOTE | 2024-11-23 22:17 | PC.NURSE ---
2200- Pt up oob without difficulty, walking in hallway with and FOB, states pain is so much better . Pt passing gas, tolerating regular diet, will continue to monitor.
[2024-11-24] MEDS: oxyCODONE HCL (*CRX) 2.5 MG TAB IR PO (00:16)
[2024-11-24 00:26] VITALS: BP 126/90; PULSE 94; RESP 16; TEMP 36.9; O2SAT 100
[2024-11-24] MEDS: FAMOTIDINE 20 MG/2 ML VIAL IV PUSH (01:35)
[2024-11-24 01:54] LABS: Basophils Absolute Auto 0.1 K/mm3 (0.0-0.1); Basophils Percent Auto 0.5 % (0.2-1.2); Eosinophils Absolute Auto 0.3 K/mm3 (0-0.3); Eosinophils Percent Auto 1.3 % (0-4.4); Hematocrit 27.2 % (37.0-47.0); Hemoglobin 8.9 g/dL (12.0-15.0); Immature Granulocyte Absolute 0.36 K/mm3 (0.00-0.031); Immature Granulocyte Percent A 1.4 % (0-0.5); Lymphocytes Absolute Auto 2.07 K/mm3 (0.9-3.2); Lymphocytes Percent Auto 8.2 % (18.3-44.2); Mean Corpuscular HGB Conc 32.7 g/dl (32-36); Mean Corpuscular Hemoglobin 30.3 pg (26-34); Mean Corpuscular Volume 92.5 fl (80-100); Mean Platelet Volume 10.3 fl (7.4-10.4); Monocytes Absolute Auto 1.4 K/mm3 (0.1-0.6); Monocytes Percent Auto 5.6 % (2.6-8.5); Neutrophils Absolute Auto 20.9 K/mm3 (1.3-6.7); Nucleated Red Blood Cells Perc 0.1 % (0.0-0.2); Platelet Count Result 359 k/mm3 (150-375); Red Blood Count 2.94 M/mm3 (4.2-5.4); Red Cell Distribution Width 13.8 % (11.5-14.5); White Blood Count 25.2 K/mm3 (4.5-10.0)
--- NOTE | 2024-11-24 02:07 | PC.NURSE ---
0115- This RN was notified by Yasmine SAAVEDRA that pt was very sick to stomach, and had just gotten back into bed from vomiting. Upon this RN entering pts room, strong smell of sulfur noticeable from hallway outside. Pt was in restroom vomiting. Assisted pt back into bed, changed her gown and asked FOB Saroj to sit with pt. This RN then called Dr. Shearer for SBAR- orders received for PIH labs, Pepcid 20mg IV push x1 now. If PIH labs unremarkable, labs will be reviewed in am at rounds, however if abnormal this RN to inform Dr. Shearer. 0130- Pepcid 20mg IV push given to pt by this RN without difficulty amd PIH labs drawn and sent to lab.
--- NOTE | 2024-11-24 02:15 | PC.NURSE ---
0015- addendum to previous note- pt also c/o heartburn in middle of chest, occasional tenderness with palpation of LUQ. BP 126/90, HR 94. Pt denies any SOB or chest pain at this time.
[2024-11-24 03:02] LABS: Alanine Aminotransferase 13 U/L (6-35); Albumin Level 2.9 g/dL (3.5-5.1); Alkaline Phosphatase 176 U/L (38-126); Anion Gap 7 mmol/L (4-12); Aspartate Amino Transferase 49 U/L (14-36); Bilirubin,Total 0.4 mg/dL (0.2-1.3); Blood Urea Nitrogen 9 mg/dL (7-17); Calcium 8.8 mg/dL (8.4-10.2); Carbon Dioxide 22 mmol/L (22-30); Chloride 104 mmol/L (98-107); Estimated CRCL calculation 103 ml/min; Estimated Glomerular Filt Rate > 60; Glucose 89 mg/dL (65-110); Potassium 4.2 mmol/L (3.4-5.0); Sodium 133 mmol/L (137-145); Uric Acid 5.6 mg/dL (2.5-7.5)
--- NOTE | 2024-11-24 03:37 | PC.NURSE ---
0330- This RN called Dr. Shearer to notify of WBC increase and PIH labs, no new orders received at this time. Continue to monitor pt and may repeat Pepcid 20ml IV push prn for heartburn sx. Pt agreed with plan and thankful for care.
[2024-11-24] MEDS: oxyCODONE HCL (*CRX) 5 MG TAB IR PO ×5 (04:12→23:36)
[2024-11-24 05:30] VITALS: BP 143/92; PULSE 88; RESP 16; TEMP 36.6; O2SAT 98
[2024-11-24] MEDS: ONDANSETRON INJ 4 MG/2 ML VIAL IV PUSH ×2 (07:05→13:14)
[2024-11-24] MEDS: MULTIVIT/MIN/PREN/FOL AC/IRON TABLET 1 TAB PO (07:05)
[2024-11-24] MEDS: DOCUSATE SODIUM 100 MG CAPSULE PO ×2 (07:05→17:18)
[2024-11-24] MEDS: SIMETHICONE 80 MG TAB.CHEW PO ×3 (07:05→18:48)
[2024-11-24] MEDS: POLYSACCHARIDE IRON COMPLEX 150 MG CAPSULE PO ×2 (07:05→17:18)
[2024-11-24] MEDS: ACETAMINOPHEN 325 MG TABLET 650 MG PO ×3 (07:05→18:48)
--- NOTE | 2024-11-24 07:24 | WPDANLDNPN2 ---
Anes-Prog Note L&D-Neuraxial Date/Time: 11/24/24 07:24 Neuraxial medications: intrathecal PF morphine Opiod-related complaints: none Patient feedback: Patient satisfied with post-operative pain management.
--- NOTE | 2024-11-24 07:24 | WPDANLDPN2 ---
Anes-Prog Note L&D Date/Time: 11/24/24 07:24 Comfortable throughout: section Neuraxial method: spinal Epidural/Spinal procedure site: clean & non-tender Neuro status: Neuro function grossly intact. Cardiovascular status: normal Respiratory status: normal Airway patency: baseline Mental status: baseline Post-Op hydration status: normal Vital Signs: Last Vital Signs Temp 36.6 C 11/24/24 05:30 Pulse 88 11/24/24 05:30 Resp 16 11/24/24 05:30 BP 143/92 H 11/24/24 05:30 Pulse Ox 98 11/24/24 05:30 O2 Del Method Room Air 11/23/24 13:50 Pain score (VAS): 1 I/O: Intake & Output 11/23/24 11/23/24 11/24/24 15:59 23:59 07:59 Intake Total 100 500 Output Total 810 300 800 Balance -810 -200 -300 Patient feedback: Patient satisfied with anesthetic care.
[2024-11-24] MEDS: diphenhydrAMINE HCl INJ 50 MG/ML VIAL 25 MG IV PUSH (07:41)
[2024-11-24 08:00] VITALS: BP 122/90; PULSE 73; RESP 18; TEMP 37.1; O2SAT 100
--- NOTE | 2024-11-24 10:07 | P.PNOB_ITS ---
OB - PN: Subj Subjective Date/time seen: 11/24/24 10:07 Interval history: RUQ and surgical pain improved this am. Reflux symptoms responded to Pepcid. Patient comments: incisional pain and tolerating diet baby status: doing well OB - PN: Obj Data Labs 11/24/24 01:46 11/24/24 01:50 Labs: Laboratory Results - last 24 hr 11/24/24 11/24/24 01:46 01:50 WBC 25.2 H RBC 2.94 L Hgb 8.9 L Hct 27.2 L MCV 92.5 MCH 30.3 MCHC 32.7 RDW 13.8 Plt Count 359 MPV 10.3 Immature Gran % (Auto) 1.4 H Neut % (Auto) 83.0 H Lymph % (Auto) 8.2 L Lawrence % (Auto) 5.6 Eos % (Auto) 1.3 Baso % (Auto) 0.5 Lymph # (Auto) 2.07 Lawrence # (Auto) 1.4 H Eos # (Auto) 0.3 Baso # (Auto) 0.1 Abs Immat Gran (auto) 0.36 H Absolute Neuts (auto) 20.9 H Absolute Nucleated RBC 0.020 H Nucleated RBC % 0.1 Sodium 133 L Potassium 4.2 Chloride 104 Carbon Dioxide 22 Anion Gap 7 BUN 9 Creatinine 0.59 L Estim Creat Clear Calc 103 Estimated GFR > 60 Glucose 89 Uric Acid 5.6 Calcium 8.8 Total Bilirubin 0.4 AST 49 H ALT 13 Alkaline Phosphatase 176 H Total Protein 6.0 L Albumin 2.9 L OB - PN A/P Assessment and Plan (1) Preeclampsia: Code(s): O14.90 - Unspecified pre-eclampsia, unspecified trimester Status: Acute Assessment and Plan: BP's remain elevated at times. Symptoms improving. LFTs slight increase. Will recheck in am. Continue close observation. Plan day: 1 Plan: routine care Time Spent With Patient Time: Total time spent is greater than 50% in coordination of care (as documented) at patient's floor/unit and/or counseling patient: Exam 2 Narrative: RUQ and epigastric area minimal tenderness inc c/d/i : Bimanual exam- vagina & uterus: other (Uterus firm, nt @U)
[2024-11-24] MEDS: LIDOCAINE 5% PATCH 1 PATCH TRANSDERM ×2 (10:37→22:10)
[2024-11-24] MEDS: MORPHINE SULFATE (*CRX) 2 MG/ML INJ IV PUSH (13:18)
[2024-11-24 15:30] VITALS: BP 122/77; PULSE 70; RESP 18; TEMP 36.4; O2SAT 98
--- NOTE | 2024-11-24 15:43 | PC.NURSE ---
1440. Mom requesting something else for pain, she is grimacing, moaning and crying out on and off. Ice and heat previously tried for pain relief. Mom reports her pain an 8/10 at this time.
--- NOTE | 2024-11-24 17:30 | PC.NURSE ---
Mother verbalizes she is able to independently latch with appropriate positioning and alignment. She denies any nipple discomfort and is responsively . Feeding observed with optimal latch. is vigorous and suckling consistently. is currently meeting outcomes for weight, output, jaundice, blood sugar and feeding frequencies of 8-12 times in 24 hours. She has a breast pump and is pumping occasionally because she will have to return to work soon. We discussed pumping to start a stockpile of milk. Mother declines any additional assistance or education at this time. Mother is encouraged to call for assistance if her infant doesn?t latch, pain with latching, questions or concerns. Mother voiced understanding of information shared along with the mom/baby guide for an additional resource. Reported to the Primary RN.
[2024-11-24 20:28] VITALS: BP 139/81; PULSE 102; RESP 16; TEMP 36.9; O2SAT 99
[2024-11-25 00:10] VITALS: BP 132/84; PULSE 93; RESP 16; TEMP 37.3; O2SAT 99
[2024-11-25] MEDS: ACETAMINOPHEN 325 MG TABLET 650 MG PO ×2 (00:54→08:33)
[2024-11-25] MEDS: oxyCODONE HCL (*CRX) 5 MG TAB IR PO ×2 (04:19→08:32)
[2024-11-25 04:36] VITALS: BP 114/70; PULSE 90; RESP 16; TEMP 36.7; O2SAT 99
[2024-11-25 05:42] LABS: Alanine Aminotransferase 12 U/L (6-35); Albumin Level 2.5 g/dL (3.5-5.1); Alkaline Phosphatase 122 U/L (38-126); Anion Gap 4 mmol/L (4-12); Aspartate Amino Transferase 32 U/L (14-36); Bilirubin,Total 0.3 mg/dL (0.2-1.3); Blood Urea Nitrogen 11 mg/dL (7-17); Calcium 8.1 mg/dL (8.4-10.2); Carbon Dioxide 25 mmol/L (22-30); Chloride 104 mmol/L (98-107); Estimated CRCL calculation 97 ml/min; Estimated Glomerular Filt Rate > 60; Glucose 88 mg/dL (65-110); Potassium 3.8 mmol/L (3.4-5.0); Sodium 133 mmol/L (137-145)
[2024-11-25 08:30] VITALS: BP 131/84; PULSE 72; RESP 18; TEMP 36.6; O2SAT 100
[2024-11-25] MEDS: LIDOCAINE 5% PATCH 1 PATCH TRANSDERM (08:32)
[2024-11-25] MEDS: POLYSACCHARIDE IRON COMPLEX 150 MG CAPSULE PO (08:33)
[2024-11-25] MEDS: SIMETHICONE 80 MG TAB.CHEW PO (08:34)
[2024-11-25] MEDS: DOCUSATE SODIUM 100 MG CAPSULE PO (08:34)
[2024-11-25] MEDS: MULTIVIT/MIN/PREN/FOL AC/IRON TABLET 1 TAB PO (08:34)
--- NOTE | 2024-11-25 10:31 | P.PNOB_ITS ---
OB - PN: Subj Subjective Date/time seen: 11/25/24 10:31 Patient comments: no complaints and pain well controlled OB - PN: Obj Data Labs 11/24/24 01:46 11/25/24 04:18 Labs: Laboratory Results - last 24 hr 11/25/24 04:18 Sodium 133 L Potassium 3.8 Chloride 104 Carbon Dioxide 25 Anion Gap 4 BUN 11 Creatinine 0.63 L Estim Creat Clear Calc 97 Estimated GFR > 60 Glucose 88 Calcium 8.1 L Total Bilirubin 0.3 AST 32 ALT 12 Alkaline Phosphatase 122 Total Protein 6.0 L Albumin 2.5 L OB - PN A/P Assessment and Plan (1) Preeclampsia: Code(s): O14.90 - Unspecified pre-eclampsia, unspecified trimester Status: Acute Assessment and Plan: labs normalized, bp good Plan day: 2 Plan: routine care and discharge home Time Spent With Patient Time: Total time spent is greater than 50% in coordination of care (as documented) at patient's floor/unit and/or counseling patient: Exam 2 Narrative: inc c/d/i : Bimanual exam- vagina & uterus: other (Uterus firm, nt @U)
--- NOTE | 2024-11-25 11:26 | PC.NURSE ---
Patient viewed the discharge video Mother & Baby Care, The First Two Weeks . Patient was given the opportunity and encouraged to ask questions. Patient verbalized understanding of information shared and has been given the mother/baby guide for home reference.
[2024-11-26 12:51] VITALS: BP 126/58; PULSE 93; RESP 18; TEMP 36.4; O2SAT 98
== END 2024-11-25 12:05 | disposition home or self-care (01) | DRG 540 ==
LOC: ANHLDR 07:38 → ANHOB2 13:34
PROVIDERS: Admitting Provider Obstetrics & Gynecology Gynecology; Visit Provider Obstetrics & Gynecology Gynecology
PROC: 10D00Z1 Extraction of Products of Conception, Low, Open Approach (ICD-10-PCS; CPT 59514; principal; 2024-11-23 09:30)
DX: O34.219 Maternal care for unspecified type scar from previous cesarean delivery (principal); O14.94 Unspecified pre-eclampsia, complicating childbirth; O99.824 Streptococcus B carrier state complicating childbirth; O99.334 Smoking (tobacco) complicating childbirth; F17.290 Nicotine dependence, other tobacco product, uncomplicated; Z3A.37 37 weeks gestation of pregnancy; Z37.0 Single live birth
CPT/HCPCS: 36415; 80053; 84550; 85025; 86592; 86703; 86850; 86900; 86901; 88307; A9270; G0432; J0690; J1200; J2250; J2270; J2274; J2371; J2405; J2590; J2704; J7120